=== PATIENT | female | born 1955 | race Caucasian/White ===

== ENCOUNTER 2023-08-31 07:25 | Outpatient (RCR) | payer MEDICARE, OTHER, SELFPAY ==
[2023-08-31 07:57] VITALS: BP 171/95; PULSE 80; TEMP 36.4; O2SAT 98
[2023-08-31] MEDS: 0.9 % SODIUM CHLORIDE 2,000 ML 1000 ML IV (08:05)
--- NOTE | 2023-08-31 08:41 | PC.NURSE ---
tolerating infusion without any issues. IV site clean dry free of reddness or edema
[2023-08-31 09:00] LABS: Bilirubin Urine NEGATIVE (NEGATIVE); Blood Urine MODERATE (NEGATIVE); Clarity Urine CLEAR (CLEAR); Color Urine BROWN (YELLOW); Glucose Urine UA NEGATIVE (NEGATIVE); Ketones Urine NEGATIVE (NEGATIVE); Leukocyte Esterase Urine MODERATE (NEGATIVE); Nitrite Urine NEGATIVE (NEGATIVE); Protein Urine TRACE mg/dL (NEG/TRACE); Specific Gravity Urine >=1.030 (1.005-1.025); Urobilinogen Urine 0.2 EU/dL (0.2-1.0)
[2023-08-31 09:04] LABS: Urine Microscopic Indicated YES
[2023-08-31 09:42] LABS: WBC Urine >100 #/HPF (NONE SEEN)
[2023-08-31 09:43] LABS: Bacteria Urine MODERATE #/HPF (NONE SEEN); Mucus Urine NONE SEEN (NONE SEEN); Squamous Epithelial Cell Urine FEW #/LPF (NONE/RARE)
[2023-08-31 10:01] LABS: Urine Culture Indicated YES
[2023-08-31 10:09] VITALS: BP 136/79; PULSE 50; TEMP 36.4; O2SAT 97
== END 2023-08-31 12:55 | disposition home or self-care (01) ==
LOC: LAB 07:25
PROVIDERS: PCP Family Medicine; Visit Provider Family Medicine
DX: K22.0 Achalasia of cardia (principal); E86.0 Dehydration; R82.998 Other abnormal findings in urine
CPT/HCPCS: 81001; 87086; 96360; 96361

== ENCOUNTER 2023-09-09 08:00 | Outpatient (OUT) | payer MEDICARE, OTHER, SELFPAY ==
--- OUTSIDE RECORDS SUMMARY | 2023-09-09 08:14 | XMS_ITS | CCD ---
Author Organization [facility] Care Team Providers Care Bonding Machine Tender Name Role Phone YA, DR VERO Vasquez Primary Care Unavailable BREANNE, DR KEYSHAWN Vasquez Consulting Unavailjavi QUINONES, DR DILIP Davis Attending Unavailable JONI, DR DILIP Davis Admitting Unavailable AYAKA, DR CHEN Childress Consulting Unavailable CARLOS, DR BARB Saucedo Consulting Unavailable JONI, DR DILIP Davis Consulting Unavailable KANNAN, DR NORRIS Consulting Unavailable VIDAL, SANDY Consulting Unavailable GEMBUS, NAIMA Consulting Unavailable YA, DR VERO Vasquez Consulting Unavailable YA, DR VERO Vasquez Primary Care Unavailable YA, DR VERO Vasquez Admitting Unavailable YA, DR VERO Vasquez Attending Unavailable YA, DR VERO Vasquez Admitting Unavailable YA, DR VERO Vasquez Attending Unavailable YA, DR VERO Vasquez Consulting Unavailable MD Vero Pandya Primary Care Provider Self, Referral Referring Provider Unavailable DO Dallas Singletary II Attending Provider Asaad, Imad Unavailable MD Vero Pandya Primary Care Provider Self, Referral Referring Provider Unavailable DO Dallas Singletary II Attending Provider MD Vero Pandya Primary Care Provider Self, Referral Referring Provider Unavailable DO Dallas Singletary II Attending Provider [phone]( [phone] Asaad, Imad Admitting Unavailable Vero Pandya Primary Care Unavailable Asaad, Imad Attending Unavailable Self, Referral Referring Unavailable Vero Pandya Primary Care Unavailable Cherise Jenkins Admitting Unavail able Cherise Jenkins Attending Unavail able Medications Completed/Discontinued Medications Medication Drug Class(es) Dates Sig (Normalized) Sig (Original) amitriptyline hydrochloride 10 mg oral tablet (3 sources) Tricyclic Antidepressant Start: 10-16-2020 End: 10-18-2020 take 10 mg by mouth once daily at bedtime Amitriptyline Discontinued 10 MG PO Daily at bedtime October 16, 2020 12:00am October 18, 2020 12:56pm esomeprazole 20 mg delayed release oral capsule (6 sources) Proton Pump Inhibitor Start: 10-18-2020 End: 09-05-2022 take 1 capsule by mouth once daily Esomeprazole Magnesium (Nexium) 20 mg Capsule,Delayed Release(Dr/Ec) Discontinued 20 MG PO Daily October 18, 2020 12:00am September 05, 2022 11:07am pt only takes when needed Start: 10-16-2020 End: 10-18-2020 take 40 mg by mouth once daily Esomeprazole Magnesium Discontinued 40 MG PO Daily October 16, 2020 12:00am October 18, 2020 12:56pm 24 hr metoprolol succinate 25 mg extended release oral tablet (3 sources) beta-Adrenergic Tracie Start: 10-16-2020 End: 10-18-2020 take 25 mg by mouth twice daily Metoprolol Succinate Discontinued 25 MG PO Twice daily October 16, 2020 12:00am October 18, 2020 12:56pm pantoprazole 40 mg delayed release oral tablet (8 sources) Proton Pump Inhibitor Start: 07-15-2023 End: 07-16-2023 take 40 mg by mouth twice daily Pantoprazole Discontinued 40 MG PO Twice daily 180 July 15, 2023 9:35pm July 16, 2023 2:16pm Start: 09-05-2022 End: 07-15-2023 take 40 mg by mouth once daily Pantoprazole Discontinu ed 40 MG PO Daily September 05, 2022 12:00am July 15, 2023 4:30pm Start: 03-18-2022 take 1 tablet by mookie th twice daily pantoprazole 40mg pantoprazole 40mg, 1 Tablet two times daily # 0, 03/18/2022, No Refill. 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; Translations: [ASHD LAC DU FLAMBEAU CA W/O ANGINA PECTORIS] Onset: 02-28-2022 Chronic Deficiency and other anemia (2 sources) Anemia due to chronic blood loss; Translations: [Iron deficiency anemia secondary to blood loss (chronic)] Chronic Deficiency and other anemia (10 sources) Iron deficiency anemia, unspecified; Translations: [Iron deficiency anemia, unspecified] Onset: 10-16-2021 Episodic Deficiency and other anemia (7 sources) Iron deficiency anemia; Translations: [Iron deficiency anemia, unspecified] 10-18-2020 Episodic Disorders of lipid metabolism (3 sources) Mixed hyperlipidemia; Translations: [Hyperlipidemia] Onset: 05-19-2016 Chronic Esophageal disorders (6 sources) Achalasia of cardia; Translations: [Achalasia of esophagus] Onset: 03-24-2013 Episodic Essential hypertension (3 sources) Essential (primary) hypertension; Translations: [Essential hypertension] Onset: 02-28-2022 Chronic Genitourinary symptoms and ill-defined conditions (7 sources) Frequency of micturition; Translations: [Finding of frequency of urination] Onset: 03-24-2013 Episodic Nausea and vomiting (4 sources) Nausea with vomiting, unspecified; Translations: [NAUSEA WITH VOMITING UNSPECIFIED] Onset: 02-17-2022 Episodic Other and unspecified benign neoplasm (1 source) Polyp of stomach and duodenum; Translations: [POLYP OF STOMACH AND DUODENUM] Onset: 02-28-2022 Episodic Other circulatory disease (2 sources) Elevated blood-pressure reading without diagnosis of hypertension; Translations: [Elevated blood-pressure reading, without diagnosis of hypertension] Episodic Other nutritional; endocrine; and metabolic disorders (1 source) Obesity, unspecified; Translations: [OBESITY UNSPECIFIED] Onset: 02-28-2022 Chronic Other nutritional; endocrine; and metabolic disorders (2 sources) Simple obesity ; Translations: [Other obesity due to excess calories] Onset: 05-19-2016 Chronic Other nutritional; endocrine; and metabolic disorders (2 sources) Obesity; Translations: [Obesity, unspecified] Onset: 04-21-2014 Chronic Other nutritional; endocrine; and metabolic disorders (2 sources) Obese class I; Translations: [Body mass index (BMI) 31.0-31.9, adult] Chronic Other nutritional; endocrine; and metabolic disorders (2 sources) Body mass index 30+ - obesity; Translations: [Body mass index (BMI) 30.0-30.9, adult] Chronic Other nutritional; endocrine; and metabolic disorders (1 source) Body mass index (BMI) 29.0-29.9, adult; Translations: [BODY MASS INDEX BMI 29.0-29.9 ADULT] Onset: 02-28-2022 Episodic Residual codes; unclassified (1 source) Acquired absence of other specified parts of digestive tract; Translations: [ACQ ABSENCE OTH PART DIGESTV TRACT] Onset: 02-28-2022 Episodic Screening and history of mental health and substance abuse codes (1 source) Personal history of nicotine dependence; Translations: [PERSONAL HISTORY OF NICOTINE DEPEND] Onset: 02-28-2022 Episodic Unclassified (1 source) GASTR-ESOPH RFLX DS ESPHGTS W/O BLD; Translations: [GASTR-ESOPH RFLX DS ESPHGTS W/O BLD] Onset: 02-28-2022 Unclassified (1 source) CONTACT W/AND (SUSP) EXPOS COVID-19; Translations: [CONTACT W/AND (SUSP) EXPOS COVID-19] Onset: 02-28-2022 Urinary tract infections (7 sources) Urinary tract infection, site not specified; Translations: [Urinary tract infectious disease] Onset: 02-27-2022 Episodic Past or Other Problems Problem Classification Problem Date Documented Date Episodic/Chronic Abdominal pain (2 sources) Epigastric pain; Translations: [Epigastric pain] Onset: 7 Episodic Deficiency and other anemia (2 sources) Anemia; Translations: [Anemia, unspecified] Onset: 5 Episodic Fluid and electrolyte disorders (2 sources) Dehydration; Translations: [Dehydration] Onset: 5 Episodic Malaise and fatigue (2 sources) Fatigue; Translations: [Other fatigue] Onset: 8 Episodic Other gastrointestinal disorders (2 sources) Pharyngeal dysphagia; Translations: [Dysphagia, pharyngoesophageal phase] Onset: 7 Episodic Other upper respiratory infections (2 sources) Acute sinusitis; Translations: [Acute sinusitis, unspecified] Onset: 5 Episodic Pancreatic disorders (not diabetes) (2 sources) Acute pancreatitis; Translations: [Acute pancreatitis without necrosis or infection, unspecified] Onset: 3 Episodic Results Test Name Value Interpretation Reference Range Facility 1,25 Dihydroxy Vit D Calcitr olon 08-17-2023 1,25 Dihydroxy Vit D Calcitrol 25.8 pg/mL Normal 24.8-81.5 [facility] Comment on above: Result Comment: Perf ormed at: BN - [facility] [address] [id number] Wood Repatcher: Lucas Hwang MD, Phone: [phone] Performed By: #### F ER, FE and TIBC, PTH, [id number], CBC, [id number], CMP #### [address] #### EPO, METH, [id number] #### [facility] , Alanine aminotransferase [En zymatic activity/volume] in Serum or PlasmaOrdered By: Dallas Singletary on 08-17-2023 ALT [Catalytic activity/Vol] 8 U/L Normal 7-52 [facility] Comment on above: Performed By: #### F ER, FE and TIBC, PTH, [id number], CBC, [id number], CMP #### [address] #### EPO, METH, [id number] #### [facility] , Albumin [Mass/volume] in Ser um or Plasma by Bromocresol green (BCG) dye binding methoOrdered By: Dallas Singletary on 08-17-2023 Albumin BCG dye [Mass/Vol] 4.2 g/dL 3.5-5.7 [facility] Alkaline phosphatase [Enzyma tic activity/volume] in Serum or PlasmaOrdered By: Dallas Singletary on 08-17-2023 ALP [Catalytic activity/Vol] 72 U/L Normal 34-104 [facility] Comment on above: Performed By: #### F ER, FE and TIBC, PTH, [id number], CBC, [id number], CMP #### [address] #### EPO, METH, [id number] #### [facility] , Aspartate aminotransferase [ Enzymatic activity/volume] in Serum or PlasmaOrdered By: Dallas Singletary on 08-17-2023 AST [Catalytic activity/Vol] 11 U/L Low 13-39 [facility] Comment on above: Performed By: #### F ER, FE and TIBC, PTH, [id number], CBC, [id number], CMP #### [address] #### EPO, METH, [id number] #### [facility] , Automated basophil %Ordered By: Dallas Singletary on 08-17-2023 Basophils/100 WBC (Bld) 1.1 % Normal . [facility] Comment on above: Performed By: #### F ER, FE and TIBC, PTH, [id number], CBC, [id number], CMP #### [address] #### EPO, METH, [id number] #### [facility] , Automated basophil countOrde red By: Dallas Singletary on 08-17-2023 Basophils (Bld) [#/Vol] 0.1 10*3/uL Normal 0.0-0.2 [facility] Comment on above: Result Comment: PERF ORMED BY: [place] [address] PATHOLOGIST SET UP TECHNICIAN ROSETTE BARTON M.D. Performed By: #### F ER, FE and TIBC, PTH, [id number], CBC, [id number], CMP #### [address] #### EPO, METH, [id number] #### [facility] , Automated blood monocyte cou ntOrdered By: Dallas Singletary on 08-17-2023 Monocytes (Bld) [#/Vol] 0.4 10*3/uL Normal 0.0-0.8 [facility] Comment on above: Performed By: #### F ER, FE and TIBC, PTH, [id number], CBC, [id number], CMP #### [address] #### EPO, METH, [id number] #### [facility] , Automated eosinophil %Ordere d By: Dallas Singletary on 08-17-2023 Eosinophils/100 WBC (Bld) 3.5 % Normal . [facility] Comment on above: Performed By: #### F ER, FE and TIBC, PTH, [id number], CBC, [id number], CMP #### [address] #### EPO, METH, [id number] #### [facility] , Automated eosinophil countOr dered By: Dallas Singletary on 08-17-2023 Eosinophils (Bld) [#/Vol] 0.2 10*3/uL Normal 0.0-0.45 [facility] Comment on above: Performed By: #### F ER, FE and TIBC, PTH, [id number], CBC, [id number], CMP #### [address] #### EPO, METH, [id number] #### [facility] , Automated monocyte %Ordered By: Dallas Singletary on 08-17-2023 Monocytes/100 WBC (Bld) 7.2 % Normal . [facility] Comment on above: Performed By: #### F ER, FE and TIBC, PTH, [id number], CBC, [id number], CMP #### [place] [address] [place] #### EPO, METH, [id number] #### [facility] , Automated neutrophil %Ordere d By: Dallas Singletary on 08-17-2023 Neutrophils/100 WBC (Bld) 66.5 % Normal . [facility] Comment on above: Performed By: #### F ER, FE and TIBC, PTH, [id number], CBC, [id number], CMP #### [facility] [address] [place] [address] #### EPO, METH, [id number] #### [facility] , Bilirubin.total [Mass/volume ] in Serum or PlasmaOrdered By: Dallas Singletary on 08-17-2023 Bilirubin [Mass/Vol] 0.6 mg/dL Normal 0.3-1.0 [facility] Comment on above: Performed By: #### F ER, FE and TIBC, PTH, [id number], CBC, [id number], CMP #### [address] #### EPO, METH, [id number] #### [facility] , Calcium [Mass/volume] in Ser um or PlasmaOrdered By: Dallas Singletary on 08-17-2023 Calcium [Mass/Vol] 10.4 mg/dL High 8.6-10.3 [facility] Comment on above: Performed By: #### F ER, FE and TIBC, PTH, [id number], CBC, [id number], CMP #### [address] #### EPO, METH, [id number] #### [facility] , Carbon dioxide, total [Moles /volume] in Serum or PlasmaOrdered By: Dallas Singletary on 08-17-2023 CO2 [Moles/Vol] 30.4 mmol/L Normal 21.0-31.0 [facility] Comment on above: Performed By: #### F ER, FE and TIBC, PTH, [id number], CBC, [id number], CMP #### [place] [address] [place] #### EPO, METH, [id number] #### [facility] , Chloride [Moles/volume] in S davonte or PlasmaOrdered By: Dallas Singletary on 08-17-2023 Chloride [Moles/Vol] 106 mmol/L Normal 98-107 [facility] Comment on above: Performed By: #### F ER, FE and TIBC, PTH, [id number], CBC, [id number], CMP #### [facility] [address] [place] [address] #### EPO, METH, [id number] #### [facility] , Complete Blood Count Auto Di ffon 08-17-2023 Mean Corpuscular HGB Conc 32.6 g/dL Normal 32.0-35.0 [facility] Comment on above: Performed By: #### F ER, FE and TIBC, PTH, [id number], CBC, [id number], CMP #### [facility] [address] [place] [address] #### EPO, METH, [id number] #### [facility] , NRBC% 0.1 /100{WBC} Normal 0-0.5 [facility] Comment on above: Performed By: #### F ER, FE and TIBC, PTH, [id number], CBC, [id number], CMP #### [facility] [address] [place] [address] #### EPO, METH, [id number] #### [facility] , Comprehensive Metabolic Pane hitesh 08-17-2023 Albumin [Mass/Vol] 4.2 g/dL Normal 3.5-5.7 [facility] Comment on above: Performed By: #### F ER, FE and TIBC, PTH, [id number], CBC, [id number], CMP #### [facility] [address] [place] [address] [place] #### EPO, METH, [id number] #### [facility] , Creatinine Clr Calc Pharmacy 83.20 Normal [facility] Comment on above: Performed By: #### F ER, FE and TIBC, PTH, [id number], CBC, [id number], CMP #### [address] #### EPO, METH, [id number] #### [facility] , GFR/1.73 sq M.predicted MDRD (S/P/Bld) [Vol rate/Area] mL/min/{1.73_m2} Normal [facility] Comment on above: Performed By: #### F ER, FE and TIBC, PTH, [id number], CBC, [id number], CMP #### [address] #### EPO, METH, [id number] #### [facility] , Creatinine [Mass/volume] in Serum or PlasmaOrdered By: Dallas Singletary on 08-17-2023 Creatinine [Mass/Vol] 0.74 mg/dL Normal 0.60-1.20 [facility] Comment on above: Performed By: #### F ER, FE and TIBC, PTH, [id number], CBC, [id number], CMP #### [place] [address] [place] #### EPO, METH, [id number] #### [facility] , Erythrocyte distribution wid th [Ratio] by Automated countOrdered By: Dallas Singletary on 08-17-2023 Erythrocyte distribution width (RBC) [Ratio] 14.8 % Normal 11.9-15.3 [facility] Comment on above: Performed By: #### F ER, FE and TIBC, PTH, [id number], CBC, [id number], CMP #### [place] [address] [place] #### EPO, METH, [id number] #### [facility] , Erythrocytes [#/volume] in B lood by Automated countOrdered By: Dallas Singletary on 08-17-2023 RBC (Bld) [#/Vol] 5.23 10*6/uL High 3.60-5.00 [facility] Comment on above: Performed By: #### F ER, FE and TIBC, PTH, [id number], CBC, [id number], CMP #### [address] #### EPO, METH, [id number] #### [facility] , Erythropoetin (EPO), Serumon 08-17-2023 Erythropoetin (EPO), Serum 10.6 m[iU]/mL Normal 2.6-18.5 [facility] Comment on above: Result Comment: [employer] DxI 800 Immunoassay System Values obtained with different assay methods or kits cannot be used interchangeably. Results cannot be interpreted as absolute evidence of the presence or absence of malignant disease. Performed at: [address] [id number] Wood Repatcher: Gavin Butler PhD, Phone: [phone] PERFORMED BY: [place] [address] PATHOLOGIST SET UP TECHNICIAN ROSETTE BARTON M.D. Performed By: #### F ER, FE and TIBC, PTH, [id number], CBC, [id number], CMP #### [address] #### EPO, METH, [id number] #### [facility] , Ferritin [Mass/volume] in Se rum or PlasmaOrdered By: Dallas Singletary on 08-17-2023 Ferritin [Mass/Vol] 12.6 ng/mL Normal 11.0-306.8 [facility] Comment on above: Performed By: #### F ER, FE and TIBC, PTH, [id number], CBC, [id number], CMP #### [address] #### EPO, METH, [id number] #### [facility] , Folate [Mass/volume] in Seru m or PlasmaOrdered By: Dallas Singletary on 08-17-2023 Folate [Mass/Vol] 10.0 ng/mL >5.9 [facility] Comment on above: Folate reference ran ge: >5.9 ng/mlThe WHO technical consultation on folate and vitamin [id number] has determined that folate concentrations lessthan 4 ng/ml are considered deficient. Glucose [Mass/volume] in Ser um or PlasmaOrdered By: Dallas Singletary on 08-17-2023 Glucose [Mass/Vol] 95 mg/dL Normal 70-100 [facility] Comment on above: ADA recommended refe rence rangeRandom Glucose Reference Range is dependent on time and content of last meal. Glucose of more than 200 mg/dL in a nonstressed, ambulatory subject supports the diagnosis of Diabetes Mellitus. Result Comment: [place] om Glucose Reference Range is dependent on time and content of last meal. Glucose of more than 200 mg/dL in a nonstressed, ambulatory subject supports the diagnosis of Diabetes Mellitus. ADA recommended reference range Performed By: #### F ER, FE and TIBC, PTH, [id number], CBC, [id number], CMP #### [facility] [address] [place] [address] #### EPO, METH, [id number] #### [facility] , Hematocrit [Volume Fraction] of Blood by Automated countOrdered By: Dallas Singletary on 08-17-2023 Hematocrit (Bld) [Volume fraction] 42.3 % Normal 34.0-46.4 [facility] Comment on above: Performed By: #### F ER, FE and TIBC, PTH, [id number], CBC, [id number], CMP #### [facility] [address] [place] [address] [place] #### EPO, METH, [id number] #### [facility] , Hemoglobin [Mass/volume] in BloodOrdered By: Dallas Singletary on 08-17-2023 Hemoglobin (Bld) [Mass/Vol] 13.8 g/dL Normal 11.8-15.4 [facility] Comment on above: Performed By: #### F ER, FE and TIBC, PTH, [id number], CBC, [id number], CMP #### [facility] [address] [place] [address] [place] #### EPO, METH, [id number] #### [facility] , Iron [Mass/volume] in Serum or PlasmaOrdered By: Dallas Singletary on 08-17-2023 Iron [Mass/Vol] 48 ug/dL Low 50-212 [facility] Comment on above: Performed By: #### F ER, FE and TIBC, PTH, [id number], CBC, [id number], CMP #### [facility] [address] [place] [address] [place] #### EPO, METH, [id number] #### [facility] , Iron and TIBC Profileon 07-29 0 % Iron Saturation 14.4 % Low 20-50 [facility] Comment on above: Performed By: #### F ER, FE and TIBC, PTH, [id number], CBC, [id number], CMP #### [facility] [address] [place] [address] [place] #### EPO, METH, [id number] #### [facility] , Total Iron Binding Capacity 333 ug/dL Normal 255-450 [facility] Comment on above: Performed By: #### F ER, FE and TIBC, PTH, [id number], CBC, [id number], CMP #### [facility] [address] [place] [address] [place] #### EPO, METH, [id number] #### [facility] , Iron binding capacity [Mass/ volume] in Serum or PlasmaOrdered By: Dallas Singletary on 08-17-2023 Iron binding capacity [Mass/Vol] 333 ug/dL 255-450 [facility] Iron saturation [Mass Fracti on] in Serum or PlasmaOrdered By: Dallas Singletary on 08-17-2023 Iron saturation [Mass fraction] 14.4 % 20-50 [facility] Leukocytes [#/volume] correc rhonda for nucleated erythrocytes in Blood by Automated counOrdered By: Dallas Singletary on 08-17-2023 WBC corrected for nucl RBC Auto (Bld) [#/Vol] 4.9 10*3/uL 3.8-11.6 [facility] Leukocytes [#/volume] in Blo od by Automated countOrdered By: Dallas Singletary on 08-17-2023 WBC (Bld) [#/Vol] 4.9 10*3/uL Normal 3.8-11.6 [facility] Comment on above: Performed By: #### F ER, FE and TIBC, PTH, [id number], CBC, [id number], CMP #### [address] #### EPO, METH, [id number] #### [facility] , Lymphocytes [#/volume] in Bl ood by Automated countOrdered By: Dallas Singletary on 08-17-2023 Lymphocytes (Bld) [#/Vol] 1.1 10*3/uL Normal 1.00-4.8 [facility] Comment on above: Performed By: #### F ER, FE and TIBC, PTH, [id number], CBC, [id number], CMP #### [place] [address] [place] #### EPO, METH, [id number] #### [facility] , Lymphocytes/100 leukocytes i n Blood by Automated countOrdered By: Dallas Singletary on 08-17-2023 Lymphocytes/100 WBC (Bld) 21.7 % Normal . [facility] Comment on above: Performed By: #### F ER, FE and TIBC, PTH, [id number], CBC, [id number], CMP #### [place] [address] [place] #### EPO, METH, [id number] #### [facility] , MCH [Entitic mass] by Automa rhonda countOrdered By: Dallas Singletary on 08-17-2023 MCH (RBC) [Entitic mass] 26.4 pg Normal 24.7-34.3 [facility] Comment on above: Performed By: #### F ER, FE and TIBC, PTH, [id number], CBC, [id number], CMP #### [address] #### EPO, METH, [id number] #### [facility] , MCHC Auto (RBC) [Mass/Vol]Or dered By: Dallas Singletary on 08-17-2023 MCHC (RBC) [Mass/Vol] 32.6 g/dL 32.0-35.0 [facility] MCV [Entitic volume] by Auto mated countOrdered By: Dallas Singletary on 08-17-2023 MCV (RBC) [Entitic vol] 81.0 fL Normal 80-100 [facility] Comment on above: Performed By: #### F ER, FE and TIBC, PTH, [id number], CBC, [id number], CMP #### [address] #### EPO, METH, [id number] #### [facility] , Methylmalonic Acidon 024 Methylmalonic Acid 187 Normal 0-378 [facility] Comment on above: Result Comment: This test was developed and its performance characteristics determined by [facility]. It has not been cleared or approved by the Food and Drug Administration. Performed at: [address] [id number] Wood Repatcher: Lucas Hwang MD, Phone: [phone] Performed By: #### F ER, FE and TIBC, PTH, [id number], CBC, [id number], CMP #### [place] [address] [place] #### EPO, METH, [id number] #### [facility] , Neutrophils [#/volume] in Bl ood by Automated countOrdered By: Dallas Singletary on 08-17-2023 Neutrophils (Bld) [#/Vol] 3.2 10*3/uL Normal 1.8-7.7 [facility] Comment on above: Performed By: #### F ER, FE and TIBC, PTH, [id number], CBC, [id number], CMP #### [address] #### EPO, METH, [id number] #### [facility] , No Panel InformationOrdered By: Dallas Singletary on 08-17-2023 Estimated GFR (CKD-EPI) > 60.0 mL/Min [facility] Creatinine Clearance (Chem 83.20 [facility] Nucleated erythrocytes [Pres ence] in Blood by Automated countOrdered By: Dallas Singletary on 08-17-2023 Nucleated RBC Auto Ql (Bld) 0.1 /100{WBC} 0-0.5 [facility] Parathyrin.intact [Mass/volu me] in Serum or PlasmaOrdered By: Dallas Singletary on 08-17-2023 Parathyrin.intact [Mass/Vol] 52.3 pg/mL [facility] Parathyroid Hormone Intacton 08-17-2023 Parathyroid Hormone Intact 52.3 pg/mL Normal [facility] Comment on above: Result Comment: PERF ORMED BY: [place] [address] PATHOLOGIST SET UP TECHNICIAN ROSETTE BARTON M.D. Performed By: #### F ER, FE and TIBC, PTH, [id number], CBC, [id number], CMP #### [address] #### EPO, METH, [id number] #### [facility] , Platelet mean volume [Entiti c volume] in Blood by Automated countOrdered By: Dallas Singletary on 08-17-2023 Platelet mean volume (Bld) [Entitic vol] 9.5 fL Normal 6.3-10.7 [facility] Comment on above: Performed By: #### F ER, FE and TIBC, PTH, [id number], CBC, [id number], CMP #### [facility] [address] [place] [address] #### EPO, METH, [id number] #### [facility] , Platelets [#/volume] in Bloo d by Automated countOrdered By: Dallas Singletary on 08-17-2023 Platelets (Bld) [#/Vol] 222 10*3/uL Normal 150-450 [facility] Comment on above: Performed By: #### F ER, FE and TIBC, PTH, [id number], CBC, [id number], CMP #### [address] #### EPO, METH, [id number] #### [facility] , Potassium [Moles/volume] in Serum or PlasmaOrdered By: Dallas Singletary on 08-17-2023 Potassium [Moles/Vol] 4.4 mmol/L Normal 3.5-5.1 [facility] Comment on above: Performed By: #### F ER, FE and TIBC, PTH, [id number], CBC, [id number], CMP #### [facility] [address] [place] [address] #### EPO, METH, [id number] #### [facility] , Protein [Mass/volume] in Ser um or PlasmaOrdered By: Dallas Singletary on 08-17-2023 Protein [Mass/Vol] 7.1 g/dL Normal 6.4-8.9 [facility] Comment on above: Performed By: #### F ER, FE and TIBC, PTH, [id number], CBC, [id number], CMP #### [facility] [address] [place] [address] [place] #### EPO, METH, [id number] #### [facility] , Serum globulin measurement b y calculation (mass/volume)Ordered By: Dallas Singletary on 08-17-2023 Globulin (S) [Mass/Vol] 2.9 g/dL Normal [facility] Comment on above: Performed By: #### F ER, FE and TIBC, PTH, [id number], CBC, [id number], CMP #### [facility] [address] [place] [address] #### EPO, METH, [id number] #### [facility] , Serum or plasma albumin/glob ulin mass ratioOrdered By: Dallas Singletary on 08-17-2023 Albumin/Globulin [Mass ratio] 1.4 {ratio} Normal [facility] Comment on above: Performed By: #### F ER, FE and TIBC, PTH, [id number], CBC, [id number], CMP #### [facility] [address] [place] [address] #### EPO, METH, [id number] #### [facility] , Serum or plasma anion gap de terminationOrdered By: Dallas Singletary on 08-17-2023 Anion gap [Moles/Vol] 6.0 mmol/L Normal 6.0-15.0 [facility] Comment on above: Performed By: #### F ER, FE and TIBC, PTH, [id number], CBC, [id number], CMP #### [address] #### EPO, METH, [id number] #### [facility] , Serum or plasma calcitriol m easurement (mass/volume)Ordered By: Dallas Singletary on 08-17-2023 1,25-dihydroxyvitamin D3 [Mass/Vol] 25.8 pg/mL 24.8-81.5 [facility] Comment on above: Performed at: [address] [id number] Director: Lucas Hwang MD, Phone: [phone] Serum or plasma erythropoiet in (EPO) measurement (units/volume)Ordered By: Dallas Singletary on 08-17-2023 Erythropoietin (EPO) Qn 10.6 mIU/mL 2.6-18.5 [facility] Comment on above: Nate FonJax el DxI 800 Immunoassay SystemValues obtained with different assay methods or kits cannotbe used interchangeably. Results cannot be interpreted asabsolute evidence of the presence or absence of malignantdisease.Performed at: [address] [id number] Director: Gavin Butler PhD, Phone: [phone] Sodium [Moles/volume] in Ser um or PlasmaOrdered By: Dallas Singletary on 08-17-2023 Sodium [Moles/Vol] 138 mmol/L Normal 136-145 [facility] Comment on above: Performed By: #### F ER, FE and TIBC, PTH, [id number], CBC, [id number], CMP #### [address] #### EPO, METH, [id number] #### [facility] , Transferrin [Mass/volume] in Serum or PlasmaOrdered By: Dallas Singletary on 08-17-2023 Transferrin [Mass/Vol] 238 mg/dL Normal 203-362 [facility] Comment on above: Performed By: #### F ER, FE and TIBC, PTH, [id number], CBC, [id number], CMP #### [address] #### EPO, METH, [id number] #### [facility] , Urea nitrogen [Mass/volume] in Serum or PlasmaOrdered By: Dallas Singletary on 08-17-2023 Urea nitrogen [Mass/Vol] 14 mg/dL Normal 7-25 [facility] Comment on above: Performed By: #### F ER, FE and TIBC, PTH, [id number], CBC, [id number], CMP #### [facility] [address] [place] [address] #### EPO, METH, [id number] #### [facility] , Vit. B12/Folate Profileon Folate 10.0 ng/mL Normal >5.9 [facility] Comment on above: Result Comment: Arlen te reference range: >5.9 ng/ml The WHO technical consultation on folate and vitamin b12 deficiencies has determined that folate concentrations less than 4 ng/ml are considered deficient. Performed By: #### F ER, FE and TIBC, PTH, [id number], CBC, [id number], CMP #### [address] #### EPO, METH, [id number] #### [facility] , Vitamin B12 ser/plasOrdered By: Dallas Singletary on 08-17-2023 Cobalamin (Vitamin B12) [Mass/Vol] 211 pg/mL Normal 180-914 [facility] Comment on above: Performed By: #### F ER, FE and TIBC, PTH, [id number], CBC, [id number], CMP #### [address] #### EPO, METH, [id number] #### [facility] , Vitamin D 25 Hydroxy Totalon 08-17-2023 Vitamin D 25 Hydroxy Total 24.7 ng/mL Low 30-100 [facility] Comment on above: Result Comment: DAVID MIN D STATUS 25(OH)VITAMIN D RANGE (ng/mL) Deficient <20 Insufficient 20 to <30 Sufficient 30 to 100 Reference: Barb MF,Rosalino NC, Carmina OLIVARES, et al. Evaluation,treatment, and prevention of vitamin D deficiency; an Endocrine Society clinical practice guideline. JCEM. 2010; 96(7):1911-30. PERFORMED BY: [place] [address] PATHOLOGIST SET UP TECHNICIAN ROSETTE BARTON M.D. Performed By: #### F ER, FE and TIBC, PTH, [id number], CBC, [id number], CMP #### [place] [address] [place] #### EPO, METH, [id number] #### [facility] , Vitamin D+Metabolites [Mass/ volume] in Serum or PlasmaOrdered By: Dallas Singletary on 08-17-2023 Vitamin D+Metabolites [Mass/Vol] 24.7 ng/mL 30-100 [facility] Comment on above: VITAMIN D STATUS 25( OH)VITAMIN D RANGE (ng/mL) Deficient <20 Insufficient 20 to <30Sufficient 30 to 100Reference: Barb MF,Rosalino SY, Carmina OLIVARES, et al. Evaluation,treatment, and prevention of vitamin D deficiency; an Endocrine Society clinical practice guideline. JCEM. 2010; 96(7):1911-30. Hitesh 02-13-2023 L Specimen: [id number] Received: 02/13/23 Status: ALBERTO Villela Num: [id number] Spec Type: Surgical Subm Dr: Onur Rodríguez MD Tissues: A Colon Biopsy (ASC POLYP) B Colon Biopsy (TRANSV POLYP) C Colon Biopsy (SIGMOID POLYP) Procedures: HE/6, Gross/Micro L4/3 Age/ Patient Sex Location Account Attending Physician TikiKaveh felton Christina 67/F [id number] Onur Rodríguez MD SPEC NUM: [id number] RECD: 02/13/23 STATUS: ALBERTO VILLELA NUM: [id number] SURI: 02/13/23 DR: Onur Rodríguez MD ENTERED: 02/13/[address]: WOODROW TYPE: Surgical DEPT: S ORDERED: HE/6, Gross/Micro L4/3 ORDERED: HE/6, Gross/Micro L4/3 Pathological Diagnosis A. Ascending colon polyp biopsy: - Small tubular adenomatous polyp B. Transverse colon polyp biopsy: - Small tubular adenomatous polyp C. Sigmoid polyps biopsy: - Tubular adenomatous polyp in 1 smaller fragment - Serrated hyperplasia polyp in one other larger fragment Clinical Information ABBEY Gross Description A. The specimen is received in formalin labeled with the patient's name designated ascending polyp and consists of a 0.3 x 0.2 x 0.2 cm sandhu-pink, polypoid, soft tissue fragment which is submitted in toto in a single cassette labeled A1. B. The specimen is received in formalin labeled with the patient's name designated transverse polyp and consists of a 0.3 x 0.2 x 0.1 cm sandhu-pink, polypoid, soft tissue fragment which is submitted in toto in a single cassette labeled B1. Specimen: [id number] Received: 02/13/23 Status: ALBERTO Villela Num: [id number] Spec Type: Surgical Subm Dr: Onur Rodríguez MD Tissues: A Colon Biopsy (ASC POLYP) B Colon Biopsy (TRANSV POLYP) C Colon Biopsy (SIGMOID POLYP) Procedures: , Gross/Micro L4/3 Patient: Tikijose franciscoKaveh [id number] (Continued) Specimen: [id number] Received: 02/13/23 (Continued) Gross Description (Continued) Signed (signature on file) John Zelaya MD 02/16/23 1613 Specimen: [id number] Received: 02/13/23 Status: NILESRoyal Villela Num: [id number] Spec Type: Surgical Subm Dr: Onur Rodríguez MD Tissues: A Colon Biopsy (ASC POLYP) B Colon Biopsy (TRANSV POLYP) C Colon Biopsy (SIGMOID POLYP) Procedures: Gross/Micro L4/3 Patient: Kaveh Theodore [id number] (Continued) Specimen: [id number] Received: 02/13/23 (Continued) Gross Description (Continued) C. The specimen is received in formalin labeled with the patient's name designated sigmoid polyps and consists of two sandhu-pink, polypoid, soft tissue fragments aggregating to 0.6 x 0.4 x 0.2 cm which are submitted in toto in a single cassette labeled C1. Microscopic Description Microscopic examinations are performed CPT Codes 50806n5 Specimen: [id number] Received: 02/13/23 Status: ALBERTO Piña: [id number] Spec Type: Surgical Subm Dr: Onur Rodríguez MD Tissues: A Colon Biopsy (ASC POLYP) B Colon Biopsy (TRANSV POLYP) C Colon Biopsy (SIGMOID POLYP) Procedures: HE/6, Gross/Micro L4/3 Patient: Tikijose franciscoKaveh [id number] (Continued) Signed (signature on file) Perry-Bam Zelaya MD 02/16/23 1613 Normal [facility] Alanine aminotransferase [En zymatic activity/volume] in Serum or PlasmaOrdered By: Cherise Jenkins on 12-02-2022 ALT [Catalytic activity/Vol] 10 U/L Normal 7-52 [facility] Comment on above: Performed By: #### F ER, FE and TIBC, PTH, [id number], CBC, [id number], CMP #### [facility] [address] #### EPO, METH, [id number] #### [facility] , Albumin [Mass/volume] in Ser um or Plasma by Bromocresol green (BCG) dye binding methoOrdered By: Cherise Jenkins on 12-02-2022 Albumin BCG dye [Mass/Vol] 4.5 g/dL 3.5-5.7 [facility] Alkaline phosphatase [Enzyma tic activity/volume] in Serum or PlasmaOrdered By: Cherise Wrightromel on 12-02-2022 ALP [Catalytic activity/Vol] 88 U/L Normal 34-104 [facility] Comment on above: Performed By: #### F ER, FE and TIBC, PTH, [id number], CBC, [id number], CMP #### [address] #### EPO, METH, [id number] #### [facility] , Aspartate aminotransferase [ Enzymatic activity/volume] in Serum or PlasmaOrdered By: Cherise Wrightromel on 12-02-2022 AST [Catalytic activity/Vol] 12 U/L Low 13-39 [facility] Comment on above: Performed By: #### F ER, FE and TIBC, PTH, [id number], CBC, [id number], CMP #### [address] #### EPO, METH, [id number] #### [facility] , Automated basophil %Ordered By: Cherise Wrightromel on 12-02-2022 Basophils/100 WBC (Bld) 1.1 % Normal . [facility] Comment on above: Performed By: #### F ER, FE and TIBC, PTH, [id number], CBC, [id number], CMP #### [place] [address] [place] #### EPO, METH, [id number] #### [facility] , Automated basophil countOrde red By: Cherise Wrightromel on 12-02-2022 Basophils (Bld) [#/Vol] 0.1 10*3/uL Normal 0.0-0.2 [facility] Comment on above: Result Comment: PERF ORMED BY: [place] [address] PATHOLOGIST SET UP TECHNICIAN ROSETTE BARTON M.D. Performed By: #### F ER, FE and TIBC, PTH, [id number], CBC, [id number], CMP #### [place] [address] [place] #### EPO, METH, [id number] #### [facility] , Automated blood monocyte cou ntOrdered By: Cherise Jenkins on 12-02-2022 Monocytes (Bld) [#/Vol] 0.4 10*3/uL Normal 0.0-0.8 [facility] Comment on above: Performed By: #### F ER, FE and TIBC, PTH, [id number], CBC, [id number], CMP #### [address] #### EPO, METH, [id number] #### [facility] , Automated eosinophil %Ordere d By: Cherise Wrightromel on 12-02-2022 Eosinophils/100 WBC (Bld) 3.0 % Normal . [facility] Comment on above: Performed By: #### F ER, FE and TIBC, PTH, [id number], CBC, [id number], CMP #### [address] #### EPO, METH, [id number] #### [facility] , Automated eosinophil countOr dered By: Cherise Jenkins on 12-02-2022 Eosinophils (Bld) [#/Vol] 0.2 10*3/uL Normal 0.0-0.45 [facility] Comment on above: Performed By: #### F ER, FE and TIBC, PTH, [id number], CBC, [id number], CMP #### [place] [address] [place] #### EPO, METH, [id number] #### [facility] , Automated monocyte %Ordered By: Cherise Jenkins on 12-02-2022 Monocytes/100 WBC (Bld) 7.8 % Normal . [facility] Comment on above: Performed By: #### F ER, FE and TIBC, PTH, [id number], CBC, [id number], CMP #### [place] [address] [place] #### EPO, METH, [id number] #### [facility] , Automated neutrophil %Ordere d By: Cherise Jenkins on 12-02-2022 Neutrophils/100 WBC (Bld) 69.2 % Normal . [facility] Comment on above: Performed By: #### F ER, FE and TIBC, PTH, [id number], CBC, [id number], CMP #### [address] #### EPO, METH, [id number] #### [facility] , Bilirubin.total [Mass/volume ] in Serum or PlasmaOrdered By: Cherise Jenkins on 12-02-2022 Bilirubin [Mass/Vol] 0.8 mg/dL Normal 0.3-1.0 [facility] Comment on above: Performed By: #### F ER, FE and TIBC, PTH, [id number], CBC, [id number], CMP #### [address] #### EPO, METH, [id number] #### [facility] , Calcium [Mass/volume] in Ser um or PlasmaOrdered By: Cherise Jenkins on 12-02-2022 Calcium [Mass/Vol] 11.2 mg/dL High 8.6-10.3 [facility] Comment on above: Performed By: #### F ER, FE and TIBC, PTH, [id number], CBC, [id number], CMP #### [place] [address] [place] #### EPO, METH, [id number] #### [facility] , Carbon dioxide, total [Moles /volume] in Serum or PlasmaOrdered By: Cherise Jenkins on 12-02-2022 CO2 [Moles/Vol] 31.2 mmol/L High 21.0-31.0 [facility] Comment on above: Performed By: #### F ER, FE and TIBC, PTH, [id number], CBC, [id number], CMP #### [place] [address] [place] #### EPO, METH, [id number] #### [facility] , Chloride [Moles/volume] in S davonte or PlasmaOrdered By: Cherise Alice on 12-02-2022 Chloride [Moles/Vol] 104 mmol/L Normal 98-107 [facility] Comment on above: Performed By: #### F ER, FE and TIBC, PTH, [id number], CBC, [id number], CMP #### [address] #### EPO, METH, [id number] #### [facility] , Complete Blood Count Auto Di ffon 12-02-2022 Mean Corpuscular HGB Conc 32.9 g/dL Normal 32.0-35.0 [facility] Comment on above: Performed By: #### F ER, FE and TIBC, PTH, [id number], CBC, [id number], CMP #### [place] [address] [place] #### EPO, METH, [id number] #### [facility] , NRBC% 0.2 /100{WBC} Normal 0-0.5 [facility] Comment on above: Performed By: #### F ER, FE and TIBC, PTH, [id number], CBC, [id number], CMP #### [place] [address] [place] #### EPO, METH, [id number] #### [facility] , Comprehensive Metabolic Pane hitesh 12-02-2022 Albumin [Mass/Vol] 4.5 g/dL Normal 3.5-5.7 [facility] Comment on above: Performed By: #### F ER, FE and TIBC, PTH, [id number], CBC, [id number], CMP #### [place] [address] [place] #### EPO, METH, [id number] #### [facility] , Creatinine Clr Calc Pharmacy 83.08 Normal [facility] Comment on above: Performed By: #### F ER, FE and TIBC, PTH, [id number], CBC, [id number], CMP #### [place] [address] [place] #### EPO, METH, [id number] #### [facility] , GFR/1.73 sq M.predicted MDRD (S/P/Bld) [Vol rate/Area] mL/min/{1.73_m2} Normal [facility] Comment on above: Performed By: #### F ER, FE and TIBC, PTH, [id number], CBC, [id number], CMP #### [place] [address] [place] #### EPO, METH, [id number] #### [facility] , Creatinine [Mass/volume] in Serum or PlasmaOrdered By: Cherise Jenkins on 12-02-2022 Creatinine [Mass/Vol] 0.66 mg/dL Normal 0.60-1.20 [facility] Comment on above: Performed By: #### F ER, FE and TIBC, PTH, [id number], CBC, [id number], CMP #### [place] [address] [place] #### EPO, METH, [id number] #### [facility] , Erythrocyte distribution wid th [Ratio] by Automated countOrdered By: Cherise Jenkins on 12-02-2022 Erythrocyte distribution width (RBC) [Ratio] 15.4 % High 11.9-15.3 [facility] Comment on above: Performed By: #### F ER, FE and TIBC, PTH, [id number], CBC, [id number], CMP #### [place] [address] [place] #### EPO, METH, [id number] #### [facility] , Erythrocytes [#/volume] in B lood by Automated countOrdered By: Cherise Jenkins on 12-02-2022 RBC (Bld) [#/Vol] 5.52 10*6/uL High 3.60-5.00 [facility] Comment on above: Performed By: #### F ER, FE and TIBC, PTH, [id number], CBC, [id number], CMP #### [address] #### EPO, METH, [id number] #### [facility] , Ferritin [Mass/volume] in Se rum or PlasmaOrdered By: Cherise Jenkins on 12-02-2022 Ferritin [Mass/Vol] 211.7 ng/mL Normal 11.0-306.8 [facility] Comment on above: Performed By: #### F ER, FE and TIBC, PTH, [id number], CBC, [id number], CMP #### [address] #### EPO, METH, [id number] #### [facility] , Glucose [Mass/volume] in Ser um or PlasmaOrdered By: Cherise Jenkins on 12-02-2022 Glucose [Mass/Vol] 100 mg/dL Normal 70-100 [facility] Comment on above: ADA recommended refe rence rangeRandom Glucose Reference Range is dependent on time and content of last meal. Glucose of more than 200 mg/dL in a nonstressed, ambulatory subject supports the diagnosis of Diabetes Mellitus. Result Comment: [place] om Glucose Reference Range is dependent on time and content of last meal. Glucose of more than 200 mg/dL in a nonstressed, ambulatory subject supports the diagnosis of Diabetes Mellitus. ADA recommended reference range Performed By: #### F ER, FE and TIBC, PTH, [id number], CBC, [id number], CMP #### [facility] [address] [place] [address] [place] #### EPO, METH, [id number] #### [facility] , Hematocrit [Volume Fraction] of Blood by Automated countOrdered By: Cherise Wrightromel on 12-02-2022 Hematocrit (Bld) [Volume fraction] 47.7 % High 34.0-46.4 [facility] Comment on above: Performed By: #### F ER, FE and TIBC, PTH, [id number], CBC, [id number], CMP #### [address] #### EPO, METH, [id number] #### [facility] , Hemoglobin [Mass/volume] in BloodOrdered By: Cherise Wrightromel on 12-02-2022 Hemoglobin (Bld) [Mass/Vol] 15.7 g/dL High 11.8-15.4 [facility] Comment on above: Performed By: #### F ER, FE and TIBC, PTH, [id number], CBC, [id number], CMP #### [address] #### EPO, METH, [id number] #### [facility] , Iron [Mass/volume] in Serum or PlasmaOrdered By: Cherise Wrightromel on 12-02-2022 Iron [Mass/Vol] 74 ug/dL Normal 50-212 [facility] Comment on above: Performed By: #### F ER, FE and TIBC, PTH, [id number], CBC, [id number], CMP #### [place] [address] [place] #### EPO, METH, [id number] #### [facility] , Iron and TIBC Profileon % Iron Saturation 26.5 % Normal 20-50 [facility] Comment on above: Performed By: #### F ER, FE and TIBC, PTH, [id number], CBC, [id number], CMP #### [facility] [address] [place] [address] [place] #### EPO, METH, [id number] #### [facility] , Total Iron Binding Capacity 279 ug/dL Normal 255-450 [facility] Comment on above: Performed By: #### F ER, FE and TIBC, PTH, [id number], CBC, [id number], CMP #### [facility] [address] [place] [address] #### EPO, METH, [id number] #### [facility] , Iron binding capacity [Mass/ volume] in Serum or PlasmaOrdered By: Cherise Jenkins on 12-02-2022 Iron binding capacity [Mass/Vol] 279 ug/dL 255-450 [facility] Iron saturation [Mass Fracti on] in Serum or PlasmaOrdered By: Cherise Jenkins on 12-02-2022 Iron saturation [Mass fraction] 26.5 % 20-50 [facility] Leukocytes [#/volume] correc rhonda for nucleated erythrocytes in Blood by Automated counOrdered By: Cherise Jenkins on 12-02-2022 WBC corrected for nucl RBC Auto (Bld) [#/Vol] 5.7 10*3/uL 3.8-11.6 [facility] Leukocytes [#/volume] in Blo od by Automated countOrdered By: Cherise Jenkins on 12-02-2022 WBC (Bld) [#/Vol] 5.7 10*3/uL Normal 3.8-11.6 [facility] Comment on above: Performed By: #### F ER, FE and TIBC, PTH, [id number], CBC, [id number], CMP #### [facility] [address] [place] [address] [place] #### EPO, METH, [id number] #### [facility] , Lymphocytes [#/volume] in Bl ood by Automated countOrdered By: Cherise Jenkins on 12-02-2022 Lymphocytes (Bld) [#/Vol] 1.1 10*3/uL Normal 1.00-4.8 [facility] Comment on above: Performed By: #### F ER, FE and TIBC, PTH, [id number], CBC, [id number], CMP #### [facility] [address] [place] [address] #### EPO, METH, [id number] #### [facility] , Lymphocytes/100 leukocytes i n Blood by Automated countOrdered By: Cherise Jenkins on 12-02-2022 Lymphocytes/100 WBC (Bld) 18.9 % Normal . [facility] Comment on above: Performed By: #### F ER, FE and TIBC, PTH, [id number], CBC, [id number], CMP #### [address] #### EPO, METH, [id number] #### [facility] , MCH [Entitic mass] by Automa rhonda countOrdered By: Cherise Jenkins on 12-02-2022 MCH (RBC) [Entitic mass] 28.5 pg Normal 24.7-34.3 [facility] Comment on above: Performed By: #### F ER, FE and TIBC, PTH, [id number], CBC, [id number], CMP #### [address] #### EPO, METH, [id number] #### [facility] , MCHC Auto (RBC) [Mass/Vol]Or dered By: Cherise Jenkins on 12-02-2022 MCHC (RBC) [Mass/Vol] 32.9 g/dL 32.0-35.0 [facility] MCV [Entitic volume] by Auto mated countOrdered By: Cherise Jenkins on 12-02-2022 MCV (RBC) [Entitic vol] 86.5 fL Normal 80-100 [facility] Comment on above: Performed By: #### F ER, FE and TIBC, PTH, [id number], CBC, [id number], CMP #### [place] [address] [place] #### EPO, METH, [id number] #### [facility] , Neutrophils [#/volume] in Bl ood by Automated countOrdered By: Cherise Martinezoj on 12-02-2022 Neutrophils (Bld) [#/Vol] 3.9 10*3/uL Normal 1.8-7.7 [facility] Comment on above: Performed By: #### F ER, FE and TIBC, PTH, [id number], CBC, [id number], CMP #### [facility] [address] [place] [address] [place] #### EPO, METH, [id number] #### [facility] , No Panel InformationOrdered By: Cherise Jenkins on 12-02-2022 Estimated GFR (CKD-EPI) > 60.0 mL/Min [facility] Creatinine Clearance (Chem 83.08 [facility] Nucleated erythrocytes [Pres ence] in Blood by Automated countOrdered By: Cherise Wrightromel on 12-02-2022 Nucleated RBC Auto Ql (Bld) 0.2 /100{WBC} 0-0.5 [facility] Platelet mean volume [Entiti c volume] in Blood by Automated countOrdered By: Cherise Wrightromel on 12-02-2022 Platelet mean volume (Bld) [Entitic vol] 9.5 fL Normal 6.3-10.7 [facility] Comment on above: Performed By: #### F ER, FE and TIBC, PTH, [id number], CBC, [id number], CMP #### [facility] [address] [place] [address] [place] #### EPO, METH, [id number] #### [facility] , Platelets [#/volume] in Bloo d by Automated countOrdered By: Cherise Alice on 12-02-2022 Platelets (Bld) [#/Vol] 214 10*3/uL Normal 150-450 [facility] Comment on above: Performed By: #### F ER, FE and TIBC, PTH, [id number], CBC, [id number], CMP #### [facility] [address] [place] [address] [place] #### EPO, METH, [id number] #### [facility] , Potassium [Moles/volume] in Serum or PlasmaOrdered By: Cherise Alice on 12-02-2022 Potassium [Moles/Vol] 5.0 mmol/L Normal 3.5-5.1 [facility] Comment on above: Performed By: #### F ER, FE and TIBC, PTH, [id number], CBC, [id number], CMP #### [address] #### EPO, METH, [id number] #### [facility] , Protein [Mass/volume] in Ser um or PlasmaOrdered By: Cherise Alice on 12-02-2022 Protein [Mass/Vol] 7.4 g/dL Normal 6.4-8.9 [facility] Comment on above: Performed By: #### F ER, FE and TIBC, PTH, [id number], CBC, [id number], CMP #### [address] #### EPO, METH, [id number] #### [facility] , Serum globulin measurement b y calculation (mass/volume)Ordered By: Cherise Alice on 12-02-2022 Globulin (S) [Mass/Vol] 2.9 g/dL Normal [facility] Comment on above: Performed By: #### F ER, FE and TIBC, PTH, [id number], CBC, [id number], CMP #### [address] #### EPO, METH, [id number] #### [facility] , Serum or plasma albumin/glob ulin mass ratioOrdered By: Cherise Alice on 12-02-2022 Albumin/Globulin [Mass ratio] 1.6 {ratio} [facility] Comment on above: Performed By: #### F ER, FE and TIBC, PTH, [id number], CBC, [id number], CMP #### [address] #### EPO, METH, [id number] #### [facility] , Serum or plasma anion gap de terminationOrdered By: Cherise Jenkins on 12-02-2022 Anion gap [Moles/Vol] 9.8 mmol/L Normal 6.0-15.0 [facility] Comment on above: Performed By: #### F ER, FE and TIBC, PTH, [id number], CBC, [id number], CMP #### [address] #### EPO, METH, [id number] #### [facility] , Sodium [Moles/volume] in Ser um or PlasmaOrdered By: Cherise Jenkins on 12-02-2022 Sodium [Moles/Vol] 140 mmol/L Normal 136-145 [facility] Comment on above: Performed By: #### F ER, FE and TIBC, PTH, [id number], CBC, [id number], CMP #### [address] #### EPO, METH, [id number] #### [facility] , Transferrin [Mass/volume] in Serum or PlasmaOrdered By: Cherise Jenkins on 12-02-2022 Transferrin [Mass/Vol] 199 mg/dL Low 203-362 [facility] Comment on above: Performed By: #### F ER, FE and TIBC, PTH, [id number], CBC, [id number], CMP #### [place] [address] [place] #### EPO, METH, [id number] #### [facility] , Urea nitrogen [Mass/volume] in Serum or PlasmaOrdered By: Cherise Jenkins on 12-02-2022 Urea nitrogen [Mass/Vol] 14 mg/dL Normal 7-25 [facility] Comment on above: Performed By: #### F ER, FE and TIBC, PTH, [id number], CBC, [id number], CMP #### [facility] [address] #### EPO, METH, [id number] #### [facility] , Vitamin B12 ser/plasOrdered By: Cherise Jenkins on 12-02-2022 Cobalamin (Vitamin B12) [Mass/Vol] 284 pg/mL Normal 180-914 [facility] Comment on above: Result Comment: PERF ORMED BY: [place] [address] PATHOLOGIST SET UP TECHNICIAN ROSETTE BARTON M.D. Performed By: #### F ER, FE and TIBC, PTH, [id number], CBC, [id number], CMP #### [facility] [address] [place] [address] #### EPO, METH, [id number] #### [facility] , Albumin [Mass/volume] in Ser um or PlasmaOrdered By: aDllas Singletary on 03-04-2022 Albumin [Mass/Vol] 3.6 g/dL 3.2-5.5 [facility] Basophils Auto (Bld) [#/Vol] Ordered By: Dallas Singletary on 03-04-2022 Basophils (Bld) [#/Vol] 0.1 10*3/uL 0.0-0.2 [facility] Basophils/100 WBC Auto (Bld) Ordered By: Dallas Singletary on 03-04-2022 Basophils/100 WBC (Bld) 1.1 % . [facility] biopsyOrdered By: Dallas Singletary on 03-04-2022 Transferrin [Mass/Vol] 194 mg/dL 180-380 [facility] Creatinine and Glomerular fi ltration rate.predicted panel (S/P/Bld)Ordered By: Dallas Singletary on 03-04-2022 Creatinine [Mass/Vol] 0.72 mg/dL 0.44-1.03 [facility] Eosinophils Auto (Bld) [#/Vo l]Ordered By: Dallas Singletary on 03-04-2022 Eosinophils (Bld) [#/Vol] 0.2 10*3/uL 0.0-0.45 [facility] Eosinophils/100 WBC Auto (Bl d)Ordered By: Dallas Singletary on 03-04-2022 Eosinophils/100 WBC (Bld) 4.2 % . [facility] Erythrocyte distribution wid th Auto (RBC) [Ratio]Ordered By: Dallas Singletary on 03-04-2022 Erythrocyte distribution width (RBC) [Ratio] 13.9 % 11.9-15.3 [facility] Estimated glomerular filtrat ion rate (GFR) non- AmericanOrdered By: Dallas Singletary on 03-04-2022 GFR/1.73 sq M.predicted among non-blacks MDRD (S/P/Bld) [Vol rate/Area] > 60 mL/Min [facility] Ferritin [Mass/volume] in Se rum or PlasmaOrdered By: Dallas Singletary on 03-04-2022 Ferritin [Mass/Vol] 90.9 ng/mL 11-306.8 [facility] Folate [Mass/volume] in Seru m or PlasmaOrdered By: Dallas Singletary on 03-04-2022 Folate [Mass/Vol] 7.6 ng/mL >5.9 [facility] Comment on above: Folate reference ran ge: >5.9 ng/mlThe WHO technical consultation on folate and vitamin [id number] has determined that folate concentrations lessthan 4 ng/ml are considered deficient. Globulin Calc (S) [Mass/Vol] Ordered By: Dallas Singletary on 03-04-2022 Globulin (S) [Mass/Vol] 3.1 g/dL [facility] Hematocrit Auto (Bld) [Volum e fraction]Ordered By: Dallas Singletary on 03-04-2022 Hematocrit (Bld) [Volume fraction] 44.0 % 34.0-46.4 [facility] Hemoglobin [Mass/volume] in BloodOrdered By: Dallas Singletary on 03-04-2022 Hemoglobin (Bld) [Mass/Vol] 14.1 g/dL 11.8-15.4 [facility] Iron [Mass/volume] in Serum or PlasmaOrdered By: Dallas Singletary on 03-04-2022 Iron [Mass/Vol] 40 ug/dL 40-150 [facility] Iron binding capacity [Mass/ volume] in Serum or PlasmaOrdered By: Dallas Singletary on 03-04-2022 Iron binding capacity [Mass/Vol] 272 ug/dL 255-450 [facility] Iron saturation [Mass Fracti on] in Serum or PlasmaOrdered By: Dallas Singletary on 03-04-2022 Iron saturation [Mass fraction] 14.0 % 20-50 [facility] - Chemistry and C hemistry - challengeOrdered By: Dallas Singletary on 03-04-2022 Cobalamin (Vitamin B12) [Mass/Vol] 214 pg/mL 180-914 [facility] Leukocytes [#/volume] correc rhonda for nucleated erythrocytes in Blood by Automated counOrdered By: Dallas Singletary on 03-04-2022 WBC corrected for nucl RBC Auto (Bld) [#/Vol] 4.6 10*3/uL 3.8-11.6 [facility] Lymphocytes Auto (Bld) [#/Vo l]Ordered By: Dallas Singletary on 03-04-2022 Lymphocytes (Bld) [#/Vol] 1.2 10*3/uL 1.00-4.8 [facility] Lymphocytes/100 WBC Auto (Bl d)Ordered By: Dallas Singletary on 03-04-2022 Lymphocytes/100 WBC (Bld) 25.1 % . [facility] MCH Auto (RBC) [Entitic mass ]Ordered By: Dallas Singletary on 03-04-2022 MCH (RBC) [Entitic mass] 28.1 pg 24.7-34.3 [facility] MCHC Auto (RBC) [Mass/Vol]Or dered By: Dallas Singletary on 03-04-2022 MCHC (RBC) [Mass/Vol] 32.1 g/dL 32.0-35.0 [facility] MCV Auto (RBC) [Entitic vol] Ordered By: Dallas Singletary on 03-04-2022 MCV (RBC) [Entitic vol] 87.4 fL 80-100 [facility] Monocytes Auto (Bld) [#/Vol] Ordered By: Dallas Singletary on 03-04-2022 Monocytes (Bld) [#/Vol] 0.3 10*3/uL 0.0-0.8 [facility] Monocytes/100 WBC Auto (Bld) Ordered By: Dallas Singletary on 03-04-2022 Monocytes/100 WBC (Bld) 7.5 % . [facility] Neutrophils Auto (Bld) [#/Vo l]Ordered By: Dallas Singletary on 03-04-2022 Neutrophils (Bld) [#/Vol] 2.9 10*3/uL 1.8-7.7 [facility] Neutrophils/100 WBC Auto (Bl d)Ordered By: Dallas Singletary on 03-04-2022 Neutrophils/100 WBC (Bld) 62.1 % . [facility] No Panel InformationOrdered By: Dallas Singletary on 03-04-2022 Estimated GFR () > 60 mL/Min [facility] Comment on above: GFR estimated refere nce range: According to KDOQI guidelines, <60 ml/min/1.73m2 is sufficient to diagnose a patient with chronic kidney disease. Pharmacy Creatinine Clearance (Chem 85.53 [facility] Nucleated erythrocytes [Pres ence] in Blood by Automated countOrdered By: Dallas Singletary on 03-04-2022 Nucleated RBC Auto Ql (Bld) 0.1 /100{WBC} 0-0.5 [facility] Platelet mean volume Auto (B ld) [Entitic vol]Ordered By: Dallas Singletary on 03-04-2022 Platelet mean volume (Bld) [Entitic vol] 9.1 fL 6.3-10.7 [facility] Platelets Auto (Bld) [#/Vol] Ordered By: Dallas Singletary on 03-04-2022 Platelets (Bld) [#/Vol] 257 10*3/uL 150-450 [facility] Protein [Mass/volume] in Ser um or PlasmaOrdered By: Dallas Singletary on 03-04-2022 Protein [Mass/Vol] 6.7 g/dL 6.1-7.9 [facility] RBC Auto (Bld) [#/Vol]Ordere d By: Dallas Singletary on 03-04-2022 RBC (Bld) [#/Vol] 5.03 10*6/uL 3.60-5.00 [facility] Serum or plasma alanine joseph otransferase measurement without P-5'-P (enzymatic activiOrdered By: Dallas Singletary on 03-04-2022 ALT No additional P-5'-P [Catalytic activity/Vol] 13 U/L 10-60 [facility] Serum or plasma albumin/glob ulin mass ratioOrdered By: Dallas Singletary on 03-04-2022 Albumin/Globulin [Mass ratio] 1.2 {ratio} [facility] Serum or plasma alkaline domitila sphatase measurement (enzymatic activity/volume)Ordered By: Dallas Singletary on 03-04-2022 ALP [Catalytic activity/Vol] 77 U/L 32-92 [facility] Serum or plasma anion gap de terminationOrdered By: Dallas Singletary on 03-04-2022 Anion gap [Moles/Vol] 11.6 mmol/L 6.0-15.0 [facility] Serum or plasma aspartate am inotransferase measurement (enzymatic activity/volume)Ordered By: Dallas Singletary on 03-04-2022 AST [Catalytic activity/Vol] 15 U/L 10-42 [facility] Serum or plasma calcium gerson urement (mass/volume)Ordered By: Dallas Singletary on 03-04-2022 Calcium [Mass/Vol] 9.9 mg/dL 8.2-10.2 [facility] Serum or plasma chloride cori surement (moles/volume)Ordered By: Dallas Singletary on 03-04-2022 Chloride [Moles/Vol] 104 mmol/L 95-114 [facility] Serum or plasma glucose gerson urement (mass/volume)Ordered By: Dallas Singletary on 03-04-2022 Glucose [Mass/Vol] 100 mg/dL 70-100 [facility] Comment on above: ADA recommended refe rence rangeRandom Glucose Reference Range is dependent on time and content of last meal. Glucose of more than 200 mg/dL in a nonstressed, ambulatory subject supports the diagnosis of Diabetes Mellitus. Serum or plasma potassium me asurement (moles/volume)Ordered By: Dallas Singletary on 03-04-2022 Potassium [Moles/Vol] 5.0 mmol/L 3.5-5.1 [facility] Serum or plasma sodium measu rement (moles/volume)Ordered By: Dallas Singletary on 03-04-2022 Sodium [Moles/Vol] 139 mmol/L 136-146 [facility] Serum or plasma total biliru bin measurement (mass/volume)Ordered By: Dallas Singletary on 03-04-2022 Bilirubin [Mass/Vol] 0.4 mg/dL 0.3-1.2 [facility] Serum or plasma total carbon dioxide measurement (moles/volume)Ordered By: Dallas Singletary on 03-04-2022 CO2 [Moles/Vol] 28.4 mmol/L 22.0-30.0 [facility] Serum or plasma urea nitroge n measurement (mass/volume)Ordered By: Dallas Singletary on 03-04-2022 Urea nitrogen [Mass/Vol] 15 mg/dL 12-20 [facility] WBC Auto (Bld) [#/Vol]Ordere d By: Dallas Singletary on 03-04-2022 WBC (Bld) [#/Vol] 4.6 10*3/uL 3.8-11.6 [facility] CULTURE URINEon 02-27-2022 CULTURE URINE Culture Observations: NO GROWTH. Normal [facility] Comment on above: Performed By: #### U RCX #### [facility] [address] [address] [address] Kamala Zelaya CULTURE URINEon 02-19-2022 CULTURE URINE Isolate 1 Escherichia coli 15,000 cfu/mL of ORGANISM 1 Escherichia coli ANTIBIOTIC M.I.C RX STATUS Ampicillin >=32 R F Ampicillin/Sulbactam >=32 R F Piperacillin/Tazobac valdez <=4 S F Cefazolin 16 I F Ceftazidime <=1 S F Ceftriaxone <=1 S F Ertapenem <=0.5 S F Imipenem <=0.25 S F Amikacin <=2 S F Gentamicin <=1 S F Tobramycin <=1 S F Ciprofloxacin <=0.25 S F Levofloxacin <=0.12 S F Nitrofurantoin <=16 S F Trimethoprim/Sulfame thoxazole >=320 R F Normal [facility] Comment on above: Performed By: #### U AMIC #### [facility] [address] [place] [address] Dr. Kamala Zelaya CBC AUTO DIFFon 02-18-2022 BASO # 0.0 103/ul Normal 0.0-0.1 [facility] Comment on above: Performed By: #### C BC #### [facility] [address] [place] [address] Dr. Kamala Zelaya Basophils/100 WBC (Bld) 0.3 % Normal 0.2-2.0 [facility] Comment on above: Performed By: #### C BC #### [facility] [address] [place] [address] Dr. Kamala Zelaya EO # 0.0 103/ul Normal 0.0-0.7 [facility] Comment on above: Performed By: #### C BC #### [facility] [address] [place] [address] Dr. Kamala Zelaya Eosinophils/100 WBC (Bld) 0.1 % Critically low 0.9-7.0 [facility] Comment on above: Performed By: #### C BC #### [facility] [address] [place] [address] Dr. Kamala Zelaya Erythrocyte distribution width (RBC) [Ratio] 13.2 % Normal 11.0-15.0 [facility] Comment on above: Performed By: #### C BC #### [facility] [address] [place] [address] Dr. Kamala Zelaya Hematocrit (Bld) [Volume fraction] 42.5 % Normal 36.0-48.0 [facility] Comment on above: Performed By: #### C BC #### [facility] [address] [place] [address] Dr. Kamala Zelaya Hemoglobin (Bld) [Mass/Vol] 13.7 g/dL Normal 12.0-16.0 [facility] Comment on above: Performed By: #### C BC #### [facility] [address] [address] [address] Kamala Zelaya IG # 0.02 10e3/ul Normal 0.00-0.03 [facility] Comment on above: Performed By: #### C BC #### [facility] [address] [address] [address] Kamala eZlaya IG % 0.3 % Normal 0.0-0.5 [facility] Comment on above: Performed By: #### C BC #### [facility] [address] [place] [address] Dr. Kamala Zelaya LYMPH # 0.9 103/ul Critically low 1.2-3.8 [facility] Comment on above: Performed By: #### C BC #### [facility] [address] [place] [address] Dr. Kamala Zelaya Lymphocytes/100 WBC (Bld) 12.7 % Critically low 20.5-60.0 [facility] Comment on above: Performed By: #### C BC #### [facility] [address] [place] [address] Dr. Kamala Zelaya MANUAL DIFF REQ NO Normal [facility] Comment on above: Performed By: #### C BC #### [facility] [address] [place] [address] Dr. Kamala Zelaya MCH (RBC) [Entitic mass] 28.4 pg Normal 26.7-34.0 [facility] Comment on above: Performed By: #### C BC #### [facility] [address] [place] [address] Dr. Kamala Zelaya MCHC (RBC) [Mass/Vol] 32.2 g/dL Normal 29.9-35.2 [facility] Comment on above: Performed By: #### C BC #### [facility] [address] [place] [address] Dr. Kamala Zelaya MCV (RBC) [Entitic vol] 88.0 fL Normal 81.0-99.0 [facility] Comment on above: Performed By: #### C BC #### [facility] [address] [place] [address] Dr. Kamala Zelaya MONO # 0.6 103/ul Normal 0.3-0.8 [facility] Comment on above: Performed By: #### C BC #### [facility] [address] [place] [address] Dr. Kamala Zelaya Monocytes/100 WBC (Bld) 8.6 % Normal 1.7-12.0 [facility] Comment on above: Performed By: #### C BC #### [facility] [address] [place] [address] Dr. Kamala Zelaya NEUT # 5.7 103/ul Normal 1.4-6.5 [facility] Comment on above: Performed By: #### C BC #### [facility] [address] [place] [address] Dr. Kamala Zelaya Neutrophils/100 WBC (Bld) 78.0 % Critically high 43.0-75.0 [facility] Comment on above: Performed By: #### C BC #### [facility] [address] [place] [address] Dr. Kamala Zelaya Platelet mean volume (Bld) [Entitic vol] 11.1 fL Normal 9.5-13.5 [facility] Comment on above: Performed By: #### C BC #### [facility] [address] [place] [address] Dr. Kamala Zelaya PLT 195 103/ul Normal 150-[address] [facility] Comment on above: Performed By: #### C BC #### [facility] [address] [place] [address] Dr. Kamala Zelaya RBC 4.83 106/ul Normal 4.20-5.[address] [facility] Comment on above: Performed By: #### C BC #### [facility] [address] [place] [address] Dr. Kamala Zelaya WBC 7.3 103/ul Normal 4.0-11.0 [facility] Comment on above: Performed By: #### C BC #### [facility] [address] [place] [address] Dr. Kamala Zelaya PROF 14(COMP METB)on 022 Albumin [Mass/Vol] 3.1 g/dL Critically low 3.4-5.0 [facility] Comment on above: Performed By: #### C BC #### [facility] [address] [place] [address] Dr. Kamala Zelaya Albumin/Globulin [Mass ratio] 0.9 {ratio} Normal [facility] Comment on above: Performed By: #### C BC #### [facility] [address] [place] [address] Dr. Kamala Zelaya ALP [Catalytic activity/Vol] 65 U/L Normal 46-116 [facility] Comment on above: Performed By: #### C BC #### [facility] [address] [place] [address] Dr. Kamala Zelaya ALT [Catalytic activity/Vol] 11 U/L Critically low 14-59 [facility] Comment on above: Performed By: #### C BC #### [facility] [address] [place] [address] Dr. Kamala Zelaya Anion gap [Moles/Vol] 11.1 mmol/L Normal [facility] Comment on above: Performed By: #### C BC #### [facility] [address] [place] [address] Dr. Kamala Zelaya AST [Catalytic activity/Vol] 17 U/L Normal 15-37 [facility] Comment on above: Performed By: #### C BC #### [facility] [address] [place] [address] Dr. Kamala Zelaya Bilirubin [Mass/Vol] 0.5 mg/dL Normal 0.2-1.0 [facility] Comment on above: Performed By: #### C BC #### [facility] [address] [place] [address] Dr. Kamala Zelaya Calcium [Mass/Vol] 9.1 mg/dL Normal 8.5-10.1 [facility] Comment on above: Performed By: #### C BC #### [facility] [address] [place] [address] Dr. Kamala Zelaya Chloride [Moles/Vol] 106 mmol/L Normal 98-107 [facility] Comment on above: Performed By: #### C BC #### [facility] [address] [address] [address] Kamala Zelaya CO2 [Moles/Vol] 26.3 mmol/L Normal 21.0-32.0 [facility] Comment on above: Performed By: #### C BC #### [facility] [address] [address] [address] Kamala Zelaya Creatinine [Mass/Vol] 0.60 mg/dL Normal 0.55-1.02 [facility] Comment on above: Performed By: #### C BC #### [facility] [address] [place] [address] Dr. Kamala Zelaya EGFR-AF VENEZUELAN >60 Normal >=60 [facility] Comment on above: Performed By: #### C BC #### [facility] [address] [address] [address] Kamala Zelaya EGFR-NON AF VENEZUELAN >60 Normal >=60 [facility] Comment on above: Performed By: #### C BC #### [facility] [address] [address] [address] Kamala Zelaya Globulin (S) [Mass/Vol] 3.4 g/dL Normal [facility] Comment on above: Performed By: #### C BC #### [facility] [address] [address] [address] Kamala Zelaya Glucose [Mass/Vol] 108 mg/dL Critically high 74-106 [facility] Comment on above: Performed By: #### C BC #### [facility] [address] [address] [address] Kamala Zelaya Potassium [Moles/Vol] 3.4 mmol/L Critically low 3.5-5.1 [facility] Comment on above: Performed By: #### C BC #### [facility] [address] [address] [address] Kamala Zelaya Protein [Mass/Vol] 6.5 g/dL Normal 6.4-8.2 [facility] Comment on above: Performed By: #### C BC #### [facility] [address] [address] [address] Kamala Zelaya Sodium [Moles/Vol] 140 mmol/L Normal 136-145 [facility] Comment on above: Performed By: #### C BC #### [facility] [address] [address] [address] Kamala Zelaya Urea nitrogen [Mass/Vol] 16.0 mg/dL Normal 7.0-18.0 [facility] Comment on above: Performed By: #### C BC #### [facility] [address] [address] [address] Kamala Zelaya Urea nitrogen/Creatinine [Mass ratio] 26.7 mg/mg Normal [facility] Comment on above: Performed By: #### C BC #### [facility] [address] [place] [address] Dr. Kamala Zelaya XR SMALL BOWEL FOLLOW THOUGH on 02-18-2022 XR SMALL BOWEL FOLLOW THOUGH EXAMINATION: XR SMALL BOWEL FOLLOW THOUGH HISTORY: nausea and vomiting COMPARISON: No relevant comparison available. TECHNIQUE: Small bowel series was performed in the usual manner. No javascript ui developer abdominal radiograph was performed. Standard level fluoroscopic mode of operation utilized. FINDINGS: DUODENUM: Normal caliber and mucosal pattern. JEJUNUM: Normal motility. No obstruction or visible lesion. ILEUM: Normal motility. No obstruction or visible lesion. OTHER: Negative. IMPRESSION: 1. Contrast has passed through normal caliber small bowel into the colon by 2 hours. No obstruction or suspicious findings. Electronically authenticated by: BARB GONZALEZ Date: 2022-02-18 10:55 Normal [facility] CBC AUTO DIFFon 02-17-2022 BASO # 0.0 103/ul Normal 0.0-0.1 [facility] Comment on above: Performed By: #### C BC #### [facility] [address] [place] [address] Dr. Kamala Zelaya Basophils/100 WBC (Bld) 0.4 % Normal 0.2-2.0 [facility] Comment on above: Performed By: #### C BC #### [facility] [address] [address] [address] Kamala Zelaya EO # 0.0 103/ul Normal 0.0-0.7 [facility] Comment on above: Performed By: #### C BC #### [facility] [address] [place] [address] Dr. Kamala Zelaya Eosinophils/100 WBC (Bld) 0.3 % Critically low 0.9-7.0 [facility] Comment on above: Performed By: #### C BC #### [facility] [address] [place] [address] Dr. Kamala Zelaya Erythrocyte distribution width (RBC) [Ratio] 13.0 % Normal 11.0-15.0 [facility] Comment on above: Performed By: #### C BC #### [facility] [address] [place] [address] Dr. Kamala Zelaya Hematocrit (Bld) [Volume fraction] 53.3 % Critically high 36.0-48.0 [facility] Comment on above: Performed By: #### C BC #### [facility] [address] [place] [address] Dr. Kamala Zelaya Hemoglobin (Bld) [Mass/Vol] 17.4 g/dL Critically high 12.0-16.0 [facility] Comment on above: Performed By: #### C BC #### [facility] [address] [place] [address] Dr. Kamala Zelaya IG # 0.03 10e3/ul Normal 0.00-0.03 [facility] Comment on above: Performed By: #### C BC #### [facility] [address] [place] [address] Dr. Kamala Zelaya IG % 0.3 % Normal 0.0-0.[address] [facility] Comment on above: Performed By: #### C BC #### [facility] [address] [place] [address] Dr. Kamala Zelaya LYMPH # 0.7 103/ul Critically low 1.2-3.8 [facility] Comment on above: Performed By: #### C BC #### [facility] [address] [place] [address] Dr. Kamala Zelaya Lymphocytes/100 WBC (Bld) 5.8 % Critically low 20.5-60.0 [facility] Comment on above: Performed By: #### C BC #### [facility] [address] [place] [address] Dr. Kamala Zelaya MANUAL DIFF REQ NO Normal [facility] Comment on above: Performed By: #### C BC #### [facility] [address] [place] [address] Dr. Kamala Zelaya MCH (RBC) [Entitic mass] 27.9 pg Normal 26.7-34.0 [facility] Comment on above: Performed By: #### C BC #### [facility] [address] [place] [address] Dr. Kamala Zelaya MCHC (RBC) [Mass/Vol] 32.6 g/dL Normal 29.9-35.2 [facility] Comment on above: Performed By: #### C BC #### [facility] [address] [place] [address] Dr. Kamala Zelaya MCV (RBC) [Entitic vol] 85.4 fL Normal 81.0-99.0 [facility] Comment on above: Performed By: #### C BC #### [facility] [address] [place] [address] Dr. Kamala Zelaya MONO # 0.5 103/ul Normal 0.3-0.8 [facility] Comment on above: Performed By: #### C BC #### [facility] [address] [place] [address] Dr. Kamala Zelaya Monocytes/100 WBC (Bld) 4.0 % Normal 1.7-12.0 [facility] Comment on above: Performed By: #### C BC #### [facility] [address] [place] [address] Dr. Kamala Zelaya NEUT # 10.0 103/ul Critically high 1.4-6.5 [facility] Comment on above: Performed By: #### C BC #### [facility] [address] [place] [address] Dr. Kamala Zelaya Neutrophils/100 WBC (Bld) 89.2 % Critically high 43.0-75.0 [facility] Comment on above: Performed By: #### C BC #### [facility] [address] [place] [address] Dr. Kamala Zelaya Platelet mean volume (Bld) [Entitic vol] 11.8 fL Normal 9.5-13.5 [facility] Comment on above: Performed By: #### C BC #### [facility] [address] [place] [address] Dr. Kamala Zelaya PLT 278 103/ul Normal 150-450 [facility] Comment on above: Performed By: #### C BC #### [facility] [address] [place] [address] Dr. Kamala Zelaya RBC 6.24 106/ul Critically high 4.20-5.40 [facility] Comment on above: Performed By: #### C BC #### [facility] [address] [place] [address] Dr. Kamala Zelaya WBC 11.2 103/ul Critically high 4.0-11.0 [facility] Comment on above: Performed By: #### C BC #### [facility] [address] [place] [address] Dr. Kamala Zelaya CULTURE BLOODon 02-17-2022 Microscopic examination of blood, culture Culture Observations: NO GROWTH AT 5 DAYS. Normal [facility] Comment on above: Performed By: #### U AMIC #### [facility] [address] [place] [address] Dr. Kamala Zelaya Microscopic examination of blood, culture Culture Observations: NO GROWTH AT 5 DAYS. Normal [facility] Comment on above: Performed By: #### U AMIC #### [facility] [address] [place] [address] Dr. Kamala Zelaya [facility]29 SARS-CoV-2 (COVID-19) RNA VERENICE+probe Ql (Unsp spec) Not detected Normal NOT DETECTED [facility] Comment on above: Result Comment: When diagnostic testing is negative, the possibility of a false negative should be considered in the context of a patient's recent exposures and the presence of clinical signs and symptoms consistent with SARS-CoV-2. This test is not yet approved or cleared by the [place] FDA. When there are no FDA-approved or cleared tests available, and other criteria are met, FDA can make tests available under an emergency access mechanism called an Emergency Use Authorization (EUA). The EUA for this test is supported by the Esthetician Facialist of Health and Human Service's declaration that circumstances exist to justify the emergency use of in vitro diagnostics for the detection and/or diagnosis of the virus that causes COVID-19. This EUA will remain in effect for the duration of the COVID-19 declaration justifying emergency of IVDs, unless it is terminated or revoked by the FDA (after which the test may no longer be used). Performed By: #### [facility] #### [facility] [address] [place] [address] Dr. Kamala Zelaya ER URINE PROFILEon 2 Bilirubin Ql (U) Negative Normal NEGATIVE [facility] Comment on above: Performed By: #### Christina ADAME UMICRO #### [facility] [address] [place] [address] Dr. Kamala Zelaya Clarity (U) CLEAR Normal CLEAR [facility] Comment on above: Performed By: #### E DEEP UMICRO #### [facility] [address] [place] [address] Dr. Kamala Zelaya Color (U) LT. YELLOW Normal YELLOW [facility] Comment on above: Performed By: #### E RUR, UMICRO #### [facility] [address] [place] [address] Dr. Kamala Zelaya ERUAHD A micrscopic examination will be performed if indicated. Normal [facility] Comment on above: Performed By: #### E RUR, UMICRO #### [facility] [address] [place] [address] Dr. Kamala Zelaya Glucose Ql (U) Negative Normal NEGATIVE [facility] Comment on above: Performed By: #### E RUR, UMICRO #### [facility] [address] [place] [address] Dr. Kamala Zelaya Hemoglobin Ql (U) SMALL Abnormal NEGATIVE [facility] Comment on above: Performed By: #### CIARA ROMAN #### [facility] [address] [place] [address] Dr. Kamala Zelaya Ketones Ql (U) 15 mg/dl Abnormal NEGATIVE [facility] Comment on above: Performed By: #### CIARA ROMAN #### [facility] [address] [place] [address] Dr. Kamala Zelaya LEUKOCYTES MODERATE Abnormal NEGATIVE [facility] Comment on above: Performed By: #### CIARA ROMAN #### [facility] [address] [place] [address] Dr. Kamala Zelaya Nitrite Ql (U) Negative Normal NEGATIVE [facility] Comment on above: Performed By: #### CIARA ROMAN #### [facility] [address] [place] [address] Dr. Kamala Zelaya pH (U) 6.0 [pH] Normal 5-[address] [facility] Comment on above: Performed By: #### CIARA ROMAN #### [facility] [address] [place] [address] Dr. Kamala Zelaya Protein (U) [Mass/Vol] 30 mg/dL Abnormal NEGAT ZACHARY/ TRACE [facility] Comment on above: Performed By: #### CIARA ROMAN #### [facility] [address] [place] [address] Dr. Kamala Zelaya SPEC GRAVITY >=1.030 Abnormal 1.005-<=1.025 [facility] Comment on above: Performed By: #### CIARA ROMAN #### [facility] [address] [place] [address] Dr. Kamala Zelaya UR MICRO IND INDICATED Normal [facility] Comment on above: Performed By: #### CIARA ROMAN #### [facility] [address] [place] [address] Dr. Kamala Zelaya Urobilinogen Qn (U) 0.2 {Agustín'U}/dL Normal 0.2 - 1. 0 [facility] Comment on above: Performed By: #### E CIARA ADAME #### [facility] [address] [place] [address] Dr. Kamala Zelaya LACTATE/LACTIC ACIDon 2021 Lactate [Moles/Vol] 1.6 mmol/L Normal 0.4-1.9 [facility] Comment on above: Performed By: #### C BC #### [facility] [address] [place] [address] Dr. Kamala Zelaya Lactate [Moles/Vol] 2.0 mmol/L Critically high 0.4-1.9 [facility] Comment on above: Performed By: #### C BC #### [facility] [address] [place] [address] Dr. Kamala Zelaya LIPASEon 02-17-2022 Lipase [Catalytic activity/Vol] 88.0 U/L Normal 73.0-393.0 [facility] Comment on above: Performed By: #### U AMIC #### [facility] [address] [place] [address] Dr. Kamala Zelaya PROF 14(COMP METB)on 022 Albumin [Mass/Vol] 4.0 g/dL Normal 3.4-5.0 [facility] Comment on above: Performed By: #### U AMIC #### [facility] [address] [place] [address] Dr. Kamala Zelaya Albumin/Globulin [Mass ratio] 0.9 {ratio} Normal [facility] Comment on above: Performed By: #### U AMIC #### [facility] [address] [place] [address] Dr. Kamala Zelaya ALP [Catalytic activity/Vol] 95 U/L Normal 46-[address] [facility] Comment on above: Performed By: #### U AMIC #### [facility] [address] [place] [address] Dr. Kamala Zelaya ALT [Catalytic activity/Vol] 14 U/L Normal 14-[address] [facility] Comment on above: Performed By: #### U AMIC #### [facility] [address] [address] [address] Kamala Zelaya Anion gap [Moles/Vol] 13.9 mmol/L Normal Th [facility] Comment on above: Performed By: #### U AMIC #### [facility] [address] [address] [address] Kamala Zelaya AST [Catalytic activity/Vol] 14 U/L Critically low 15-37 [facility] Comment on above: Performed By: #### U AMIC #### [facility] [address] [address] [address] Kamala Zelaya Bilirubin [Mass/Vol] 0.8 mg/dL Normal 0.2-1.0 [facility] Comment on above: Performed By: #### U AMIC #### [facility] [address] [address] [address] Kamala Zelaya Calcium [Mass/Vol] 10.7 mg/dL Critically high 8.5-10.1 [facility] Comment on above: Performed By: #### U AMIC #### [facility] [address] [address] [address] Kamala Zelaya Chloride [Moles/Vol] 97 mmol/L Critically low 98-107 [facility] Comment on above: Performed By: #### U AMIC #### [facility] [address] [address] [address] Kamala Zelaya CO2 [Moles/Vol] 27.0 mmol/L Normal 21.0-32.0 [facility] Comment on above: Performed By: #### U AMIC #### [facility] [address] [address] [address] Kamala Zelaya Creatinine [Mass/Vol] 0.76 mg/dL Normal 0.55-1.02 [facility] Comment on above: Performed By: #### U AMIC #### [facility] [address] [address] [address] Kamala Zelaya EGFR-AF VENEZUELAN >60 Normal >=60 [facility] Comment on above: Performed By: #### U AMIC #### [facility] [address] [address] [address] Kamala Zelaya EGFR-NON AF VENEZUELAN >60 Normal >=60 [facility] Comment on above: Performed By: #### U AMIC #### [facility] [address] [address] [address] Kamala Zelaya Globulin (S) [Mass/Vol] 4.4 g/dL Normal [facility] Comment on above: Performed By: #### U AMIC #### [facility] [address] [address] [address] Kamala Zelaya Glucose [Mass/Vol] 142 mg/dL Critically high 74-106 [facility] Comment on above: Performed By: #### U AMIC #### [facility] [address] [address] [address] Kamala Zelaya Potassium [Moles/Vol] 3.9 mmol/L Normal 3.5-5.1 [facility] Comment on above: Performed By: #### U AMIC #### [facility] [address] [address] [address] Kamala Zelaya Protein [Mass/Vol] 8.4 g/dL Critically high 6.4-8.2 [facility] Comment on above: Performed By: #### U AMIC #### [facility] [address] [place] [address] Dr. Kamala Zelaya Sodium [Moles/Vol] 134 mmol/L Critically low 136-145 [facility] Comment on above: Performed By: #### U AMIC #### [facility] [address] [address] [address] Kamala Zelaya Urea nitrogen [Mass/Vol] 18.0 mg/dL Normal 7.0-18.0 [facility] Comment on above: Performed By: #### U AMIC #### [facility] [address] [address] [address] Kamala Zelaya Urea nitrogen/Creatinine [Mass ratio] 23.7 mg/mg Normal [facility] Comment on above: Performed By: #### U AMIC #### [facility] [address] [place] [address] Dr. Kamala Zelaya URINE MICROSCOPIC ONLYon BACTERIA LARGE Abnormal NONE SEEN [facility] Comment on above: Performed By: #### E DEEP UMICRO #### [facility] [address] [place] [address] Dr. Kamala Zelaya Bacteria identified Cx Nom (U) INDICATED Normal [facility] Comment on above: Performed By: #### Christina ADAME UMICRO #### [facility] [address] [place] [address] Dr. Kamala Zelaya CAST NONE SEEN Normal NONE SEEN [facility] Comment on above: Performed By: #### Christina ADAME UMICRO #### [facility] [address] [place] [address] Dr. Kamala Zelaya Crystals LM Nom (Urine sed) NONE SEEN Normal NONE SEEN [facility] Comment on above: Performed By: #### Christina ADAME UMICRO #### [facility] [address] [place] [address] Dr. Kamala Zelaya Epithelial cells LM Ql (Urine sed) FEW Abnormal NONE SEEN /RARE [facility] Comment on above: Performed By: #### Christina ADAME UMICRO #### [facility] [address] [place] [address] Dr. Kamlaa Zelaya MUCOUS NONE SEEN Normal NONE SEEN [facility] Comment on above: Performed By: #### Christina ADAME UMICRO #### [facility] [address] [place] [address] Dr. Kamala Zelaya RBC 5-10 Abnormal 0-[address] [facility] Comment on above: Performed By: #### Christina ADAME UMICRO #### [facility] [address] [place] [address] Dr. Kamala Zelaya WBC 75-100 Abnormal NONE SEEN [facility] Comment on above: Performed By: #### Christina ADAME UMICRO #### [facility] [address] [place] [address] Dr. Kamala Zelaya XR ABD FLAT_UPon 02-17-2022 XR ABD FLAT_UP EXAM: XR ABD FLAT_UP REASON FOR EXAM: Female, 66 years, nausea and vomiting. TECHNIQUE: Supine and upright views of the abdomen and pelvis are performed. COMPARISON: Esophagram, same date. FINDINGS: The lung bases are clear. The abdominal bowel gas pattern is nonspecific. No small bowel obstruction. There is some residual barium throughout the small bowel. The small bowel is mildly gas distended with multiple small air-fluid levels which may represent ileus. No high-grade obstruction is seen. There is no demonstrated free abdominal air. The visualized liver, spleen, and kidneys are grossly normal in size and morphology. Normal soft tissue structures. Degenerative changes are seen within the spine. IMPRESSION: Nonspecific abdominal bowel gas pattern with findings suggesting ileus. No high-grade obstruction. Electronically authenticated by: SANDY DRAKE Date: 2022-02-17 20:11 Normal [facility] XR ESOPHAGUSon 02-17-2022 XR ESOPHAGUS EXAMINATION: XR ESOPHAGUS, XR CINERADIOGRAPHY HISTORY: Achalasia of esophagus COMPARISON: No relevant comparison available. TECHNIQUE: A swallowing evaluation was performed with fluoroscopy in the usual manner. Standard level fluoroscopic mode of operation utilized. FINDINGS: ORAL PHASE: Normal deglutition. PHARYNGEAL PHASE: Normal swallowing. ASPIRATION: None. STRUCTURE: There is foodstuffs filling of a dilated esophagus extending to a beaked narrowing at the gastroesophageal junction. Trickle of contrast identified flowing into the stomach OTHER: Negative. IMPRESSION: High-grade narrowing of the gastroesophageal junction without occlusion. Findings are consistent with known achalasia Electronically authenticated by: CHEN MARLEY Date: 2022-02-17 13:54 Normal [facility] - Hematology and Cell countsOrdered By: Dallas Singletary on 10-31-2021 Nucleated RBC/100 WBC (Bld) [Ratio] 0.2 % 0-0.5 [facility] CBC AUTO DIFFon 10-16-2021 BASO # 0.1 103/ul Normal 0.0-0.1 [facility] Comment on above: Performed By: #### C BC #### [facility] [address] [address] [address] Kamala Zelaya Basophils/100 WBC (Bld) 0.9 % Normal 0.2-2.0 [facility] Comment on above: Performed By: #### C BC #### [facility] [address] [place] [address] Dr. Kamala Zelaya EO # 0.2 103/ul Normal 0.0-0.7 [facility] Comment on above: Performed By: #### C BC #### [facility] [address] [place] [address] Dr. Kamala Zelaya Eosinophils/100 WBC (Bld) 3.7 % Normal 0.9-7.0 [facility] Comment on above: Performed By: #### C BC #### [facility] [address] [place] [address] Dr. Kamala Zelaya Erythrocyte distribution width (RBC) [Ratio] 14.6 % Normal 11.0-15.0 [facility] Comment on above: Performed By: #### C BC #### [facility] [address] [place] [address] Dr. Kamala Zelaya Hematocrit (Bld) [Volume fraction] 47.0 % Normal 36.0-48.0 [facility] Comment on above: Performed By: #### C BC #### [facility] [address] [place] [address] Dr. Kamala Zelaya Hemoglobin (Bld) [Mass/Vol] 14.4 g/dL Normal 12.0-16.0 [facility] Comment on above: Performed By: #### C BC #### [facility] [address] [place] [address] Dr. Kamala Zelaya IG # 0.01 10e3/ul Normal 0.00-0.03 [facility] Comment on above: Performed By: #### C BC #### [facility] [address] [place] [address] Dr. Kamala Zelaya IG % 0.2 % Normal 0.0-0.[address] [facility] Comment on above: Performed By: #### C BC #### [facility] [address] [place] [address] Dr. Kamala Zelaya LYMPH # 1.4 103/ul Normal 1.2-3.[address] [facility] Comment on above: Performed By: #### C BC #### [facility] [address] [address] [address] Kamala Zelaya Lymphocytes/100 WBC (Bld) 25.5 % Normal 20.5-60.0 [facility] Comment on above: Performed By: #### C BC #### [facility] [address] [address] [address] Kamala Zelaya MANUAL DIFF REQ NO Normal [facility] Comment on above: Performed By: #### C BC #### [facility] [address] [address] [address] Kamala Zelaya MCH (RBC) [Entitic mass] 26.2 pg Critically low 26.7-34 .0 [facility] Comment on above: Performed By: #### C BC #### [facility] [address] [place] [address] Dr. Kamala Zelaya MCHC (RBC) [Mass/Vol] 30.6 g/dL Normal 29.9-35.2 [facility] Comment on above: Performed By: #### C BC #### [facility] [address] [place] [address] Dr. Kamala Zelaya MCV (RBC) [Entitic vol] 85.6 fL Normal 81.0-99.0 [facility] Comment on above: Performed By: #### C BC #### [facility] [address] [place] [address] Dr. Kamala Zelaya MONO # 0.4 103/ul Normal 0.3-0.8 [facility] Comment on above: Performed By: #### C BC #### [facility] [address] [place] [address] Dr. Kamala Zelaya Monocytes/100 WBC (Bld) 7.0 % Normal 1.7-12.0 [facility] Comment on above: Performed By: #### C BC #### [facility] [address] [place] [address] Dr. Kamala Zelaya NEUT # 3.4 103/ul Normal 1.4-6.5 [facility] Comment on above: Performed By: #### C BC #### [facility] [address] [address] [address] Kamala Zelaya Neutrophils/100 WBC (Bld) 62.7 % Normal 43.0-75.0 [facility] Comment on above: Performed By: #### C BC #### [facility] [address] [address] [address] Kamala Zelaya Platelet mean volume (Bld) [Entitic vol] 11.0 fL Normal 9.5-13.5 [facility] Comment on above: Performed By: #### C BC #### [facility] [address] [address] [address] Kamala Zelaya PLT 244 103/ul Normal 150-450 [facility] Comment on above: Performed By: #### C BC #### [facility] [address] [place] [address] Dr. Kamala Zelaya RBC 5.49 106/ul Critically high 4.20-5.40 [facility] Comment on above: Performed By: #### C BC #### [facility] [address] [address] [address] Kamala Zelaya WBC 5.4 103/ul Normal 4.0-11.0 [facility] Comment on above: Performed By: #### C BC #### [facility] [address] [place] [address] Dr. Kamala Zelaya CULTURE URINEon 10-16-2021 CULTURE URINE Culture Observations: HEAVY GROWTH OF MIXED GENITAL DELROY. NO POTENTIAL PATHOGENS SEEN. Normal [facility] Comment on above: Performed By: #### U RCX #### [facility] [address] [place] [address] Dr. Kamala Zelaya FERRITINon 10-16-2021 Ferritin [Mass/Vol] 12.0 ng/mL Normal 8.0-252.0 [facility] Comment on above: Performed By: #### F ERR #### [facility] [address] [place] [address] Dr. Kamala Zelaya PROF 14(COMP METB)on 022 Albumin [Mass/Vol] 3.8 g/dL Normal 3.4-5.0 [facility] Comment on above: Performed By: #### U AMIC #### [facility] [address] [address] [address] Kamala Zelaya Albumin/Globulin [Mass ratio] 0.9 {ratio} Normal [facility] Comment on above: Performed By: #### U AMIC #### [facility] [address] [address] [address] Kamala Zelaya ALP [Catalytic activity/Vol] 88 U/L Normal 46-116 [facility] Comment on above: Performed By: #### U AMIC #### [facility] [address] [address] [address] Kamala Zelaya ALT [Catalytic activity/Vol] 19 U/L Normal 14-59 [facility] Comment on above: Performed By: #### U AMIC #### [facility] [address] [address] [address] Kamala Zelaya Anion gap [Moles/Vol] 11.9 mmol/L Normal [facility] Comment on above: Performed By: #### U AMIC #### [facility] [address] [address] [address] Kamala Zelaya AST [Catalytic activity/Vol] 10 U/L Critically low 15-37 [facility] Comment on above: Performed By: #### U AMIC #### [facility] [address] [address] [address] Kamala Zelaya Bilirubin [Mass/Vol] 0.5 mg/dL Normal 0.2-1.0 [facility] Comment on above: Performed By: #### U AMIC #### [facility] [address] [address] [address] Kamala Zelaya Calcium [Mass/Vol] 9.8 mg/dL Normal 8.5-10.1 [facility] Comment on above: Performed By: #### U AMIC #### [facility] [address] [address] [address] Kamala Zelaya Chloride [Moles/Vol] 105 mmol/L Normal 98-107 [facility] Comment on above: Performed By: #### U AMIC #### [facility] [address] [address] [address] Kamala Zelaya CO2 [Moles/Vol] 29.5 mmol/L Normal 21.0-32.0 [facility] Comment on above: Performed By: #### U AMIC #### [facility] [address] [address] [address] Kamala Zelaya Creatinine [Mass/Vol] 0.65 mg/dL Normal 0.55-1.[address] [facility] Comment on above: Performed By: #### U AMIC #### [facility] [address] [address] [address] Kamala Zelaya EGFR-AF VENEZUELAN >60 Normal >=60 [facility] Comment on above: Performed By: #### U AMIC #### [facility] [address] [address] [address] Kamala Zelaya EGFR-NON AF VENEZUELAN >60 Normal >=[address] [facility] Comment on above: Performed By: #### U AMIC #### [facility] [address] [address] [address] Kamala Zelaya Globulin (S) [Mass/Vol] 4.1 g/dL Normal T [facility] Comment on above: Performed By: #### U AMIC #### [facility] [address] [address] [address] Kamala Zelaya Glucose [Mass/Vol] 99 mg/dL Normal 74-106 [facility] Comment on above: Performed By: #### U AMIC #### [facility] [address] [address] [address] Kamala Zelaya Potassium [Moles/Vol] 4.4 mmol/L Normal 3.5-5.[address] [facility] Comment on above: Performed By: #### U AMIC #### [facility] [address] [address] [address] Kamala Zelaya Protein [Mass/Vol] 7.9 g/dL Normal 6.4-8.2 [facility] Comment on above: Performed By: #### U AMIC #### [facility] [address] [address] [address] Kamala Zelaya Sodium [Moles/Vol] 142 mmol/L Normal 136-145 [facility] Comment on above: Performed By: #### U AMIC #### [facility] [address] [place] [address] Dr. Kamala Zelaya Urea nitrogen [Mass/Vol] 15.0 mg/dL Normal 7.0-18.0 [facility] Comment on above: Performed By: #### U AMIC #### [facility] [address] [place] [address] Dr. Kamala Zelaya Urea nitrogen/Creatinine [Mass ratio] 23.1 mg/mg Normal [facility] Comment on above: Performed By: #### U AMIC #### [facility] [address] [place] [address] Dr. Kamala Zelaya UA RANDOM W/MICROSCOPICon BACTERIA LARGE Abnormal NONE SEEN [facility] Comment on above: Performed By: #### U AMIC #### [facility] [address] [place] [address] Dr. Kamala Zelaya Bilirubin Ql (U) Negative Normal NEGATIVE [facility] Comment on above: Performed By: #### U AMIC #### [facility] [address] [place] [address] Dr. Kamala Zelaya CAST NONE SEEN Normal NONE SEEN [facility] Comment on above: Performed By: #### U AMIC #### [facility] [address] [place] [address] Dr. Kamala Zelaya Clarity (U) CLEAR Normal CLEAR [facility] Comment on above: Performed By: #### U AMIC #### [facility] [address] [place] [address] Dr. Kamala Zelaya Color (U) RED Abnormal YELLOW [facility] Comment on above: Performed By: #### U AMIC #### [facility] [address] [place] [address] Dr. Kamala Zelaya Crystals LM Nom (Urine sed) NONE SEEN Normal NONE SEEN [facility] Comment on above: Performed By: #### U AMIC #### [facility] [address] [address] [address] Kamala Zelaya Epithelial cells LM Ql (Urine sed) FEW Abnormal NONE SEEN /RARE [facility] Comment on above: Performed By: #### U AMIC #### [facility] [address] [place] [address] Dr. Kamala Zelaya Glucose Ql (U) Negative Normal NEGATIVE [facility] Comment on above: Performed By: #### U AMIC #### [facility] [address] [address] [address] Kamala Zelaya Hemoglobin Ql (U) MODERATE Abnormal NEGATIVE [facility] Comment on above: Performed By: #### U AMIC #### [facility] [address] [place] [address] Dr. Kamala Zelaya Ketones Ql (U) TRACE Abnormal NEGATIVE [facility] Comment on above: Performed By: #### U AMIC #### [facility] [address] [place] [address] Dr. Kamala Zelaya LEUKOCYTES LARGE Abnormal NEGATIVE [facility] Comment on above: Performed By: #### U AMIC #### [facility] [address] [place] [address] Dr. Kamala Zelaya MUCOUS NONE SEEN Normal NONE SEEN [facility] Comment on above: Performed By: #### U AMIC #### [facility] [address] [place] [address] Dr. Kamala Zelaya Nitrite Ql (U) Negative Normal NEGATIVE [facility] Comment on above: Performed By: #### U AMIC #### [facility] [address] [place] [address] Dr. Kamala Zelaya pH (U) 5.5 [pH] Normal 5-[address] [facility] Comment on above: Performed By: #### U AMIC #### [facility] [address] [place] [address] Dr. Kamala Zelaya RBC 5-10 Abnormal 0-2 [facility] Comment on above: Performed By: #### U AMIC #### [facility] [address] [place] [address] Dr. Kamala Zelaya SPEC GRAVITY >=1.030 Abnormal 1.005-<=1.025 [facility] Comment on above: Performed By: #### U AMIC #### [facility] [address] [address] [address] Kamala Zelaya UA PROTEIN 30 mg/dl Abnormal NEGATIVE/ TRACE [facility] Comment on above: Performed By: #### U AMIC #### [facility] [id number] Kamala Zelaya Urobilinogen Qn (U) 0.2 {Agustín'U}/dL Normal 0.2 - 1. 0 [facility] Comment on above: Performed By: #### U AMIC #### [facility] [address] [address] [address] Kamala Zelaya WBC (U) [#/Vol] /uL Abnormal NONE SEEN [facility] Comment on above: Performed By: #### U AMIC #### [facility] [address] [address] [address] Kamala Zelaya [facility] KAVEH THEODORE ([id number]) 1955 F Date Time Provider Department 10/02/20 FRANTZ REYNA During your visit today, we recorded the following information about you: Jennifer Ham [facility] 10/02/2020 1:16 PM Signed Records faxed to [facility]. Patient gave verbal consent. Allergies As of Date: 10/02/2020 (No Known Allergies) Date Reviewed: 08/12/2018 Reviewed by: Cami Lizama - Fully Assessed Reason for Visit: records faxed [Other] Prescriptions as of 10/02/2020 - aspirin 81 mg chewable tablet Take 81 mg by mouth once daily. - metoprolol tartrate, short acting, (LOPRESSOR) 50 mg tablet Take 25 mg by mouth once daily. - amitriptyline (ELAVIL) 10 mg tablet TAKE 1 TABLET DAILY AT BEDTIME - esomeprazole 40 mg capsule Take 40 mg by mouth twice daily. Facility-Administere d Medications as of 10/02/2020 - NaCl 0.9% iv infusion - diphenhydrAMINE 50 mg injection (BENADRYL) - hydrocortisone sodium succinate 100 mg injection (Solu-CORTEF) - EPINEPHrine 0.3 mg injection - 0.9% NaCl 10-20 mL Problem List As Of Date 10/02/2020 Noted Resolved MORBID OBESITY [E66.01] 05/19/2008 ACHALASIA AND CARDIOSPASM [K22.0] 05/19/2008 Iron deficiency anemia [D50.9] 10/22/2015 Encounter Status:Closed by JENNIFER TROTTER on 10/02/20 Normal [facility] Vital Signs Date Time Vital Sign Value Performing Clinician Facility 08-21-2023 11:33-0400 Body temperature 97.8 [degF] MD Vero Pandya Work Phone: [facility] 08-21-2023 11:33-0400 Body weight 90.71 kg MD Vero Pandya Work Phone: [facility] 08-21-2023 11:33-0400 Diastolic blood pressure 103 mm[Hg] MD Vero Pandya Work Phone: [facility] 08-21-2023 11:33-0400 Heart rate 74 /min MD Vero Pandya Work Phone: [facility] 08-21-2023 11:33-0400 Respiratory rate 16 /min MD Vero Pandya Work Phone: [facility] 08-21-2023 11:33-0400 SaO2% (BldA) [Mass fraction] 100 % MD Vero Pandya Work Phone: [facility] 08-21-2023 11:33-0400 Systolic blood pressure 162 mm[Hg] MD Vero Pandya Work Phone: [facility] 12-05-2022 11:41-0400 Body temperature 97.1 [degF] MD Vero Pandya Work Phone: [facility] 12-05-2022 11:41-0400 Body weight 91.17 kg MD Vero Pandya Work Phone: [facility] 12-05-2022 11:41-0400 Diastolic blood pressure 88 mm[Hg] MD Vero Pandya Work Phone: [facility] 12-05-2022 11:41-0400 Heart rate 69 /min MD Vero Pandya Work Phone: [facility] 12-05-2022 11:41-0400 Respiratory rate 16 /min MD Vero Pandya Work Phone: [facility] 12-05-2022 11:41-0400 SaO2% (BldA) [Mass fraction] 98 % MD Vero Pandya Work Phone: [facility] 12-05-2022 11:41-0400 Systolic blood pressure 162 mm[Hg] MD Vero Pandya Work Phone: [facility] 11-18-2022 13:15-0400 Body height 172.72 cm Imad Asaad Other [facility] Other 11-18-2022 13:15-0400 Body mass index (BMI) [Ratio] 30.41 kg/m2 Imad Asaad Other [facility] Other 11-18-2022 13:15-0400 Body weight 90.72 kg Imad Asaad Other [facility] Other 11-18-2022 13:15-0400 Diastolic blood pressure 98 mm[Hg] Imad Asaad Other [facility] Other 11-18-2022 13:15-0400 Systolic blood pressure 150 mm[Hg] Imad Asaad Other [facility] Other 03-07-2022 11:26-0500 Body height 175.26 cm MD Vero Pandya Work Phone: [facility] 03-07-2022 11:26-0500 Body temperature 98 [degF] MD Vero Pandya Work Phone: [facility] 03-07-2022 11:26-0500 Body weight 91.5 kg MD Vero Pandya Work Phone: [facility] 03-07-2022 11:26-0500 Diastolic blood pressure 100 mm[Hg] MD Vero Pandya Work Phone: [facility] 03-07-2022 11:26-0500 Heart rate 89 /min MD Vero Pandya Work Phone: [facility] 03-07-2022 11:26-0500 Respiratory rate 18 /min MD Vero Pandya Work Phone: [facility] 03-07-2022 11:26-0500 SaO2% (BldA) [Mass fraction] 100 % MD Vero Pandya Work Phone: [facility] 03-07-2022 11:26-0500 Systolic blood pressure 163 mm[Hg] MD Vero Pandya Work Phone: [facility] Encounters Encounter Date Encounter Type Care Provider Facility Start: 09-08-2023 ambulatory Referral Self Facility: [facility] Start: 08-21-2023 End: 08-21-2023 ambulatory MD Vero Pandya Work Phone: [facility] Work Phone: Start: 08-21-2023 End: 08-21-2023 Patient encounter procedure MD Vero Pandya Work Phone: [facility] Ambulatory Work Phone: Start: 08-21-2023 Registered Recurring MD Vero Pandya Work Phone: [facility] Acute Work Phone: Start: 07-15-2023 Non-patient / Non-visit MD Vero Pandya Work Phone: [facility] [employer] Work Phone: Start: 02-25-2023 End: 02-25-2023 ambulatory Imad Asaad Other [facility] Other Start: 02-25-2023 Telephone encounter Imad Asaad [facility] Start: 02-13-2023 End: 02-13-2023 ambulatory Imad Asaad Facility:[facility] Start: 12-05-2022 End: 12-05-2022 ambulatory MD Vero Pandya Work Phone: [facility] Work Phone: Start: 12-05-2022 End: 12-05-2022 Registered Recurring MD Vero Pnadya [facility] Work Phone: Start: 11-18-2022 End: 11-18-2022 ambulatory Imad Asaad Other [facility] Other Start: 11-18-2022 Office outpatient ne w 45 minutes Imad Asaad [facility] Start: 03-07-2022 End: 03-07-2022 ambulatory MD Vero Pandya Work Phone: [facility] Work Phone: Start: 03-07-2022 End: 03-07-2022 Registered Recurring MD Vero Pandya [facility] Start: 02-27-2022 End: 02-27-[address] VERO PANDYA Facility: Start: 02-24-2022 Adult health examination Imad Asaad Other [facility] Other Start: 02-17-2022 End: 02-18-[address] VERO PANDYA Facility:[facility] Start: 10-16-2021 End: 10-17-[address] VERO PANDYA Facility:[facility] Plan of Treatment Date Care Activity Detail Author Start: 08-17-2023 Calcitriol [Mass/vol ume] in Serum or Plasma [facility] Start: 08-17-2023 Erythropoietin (EPO) [Units/volume] in Serum or Plasma [facility] Start: 08-17-2023 [facility] Start: 02-10-2023 [facility] Start: 09-19-2022 [facility] Start: 09-12-2022 [facility] Start: 11-22-2021 [facility] Start: 11-22-2021 [facility] Start: 11-12-2021 [facility] Start: 11-08-2021 [facility] Start: 11-08-2020 [facility] Start: 11-01-2020 [facility] Calcitriol [Mass/vol ume] in Serum or Plasma [facility] Comprehensive metabo lic 1999 panel - Serum or Plasma [facility] metabo lic 1999 panel - Serum or Plasma [facility] Erythropoietin (EPO) [Units/volume] in Serum or Plasma [facility] Ferritin [Mass/volum e] in Serum or Plasma [facility] Payers Date Payer Category Payer Self-pay [id number] 1958 Medicare [id number] 1958 Private Health Insurance [id number] 1955 Unknown [id number] 1955 Unknown [id number] 1955 Unknown [id number] Private Health Insurance [employer] [id number] Unknown [id number] Unknown [id number] Social History Date Type Detail Facility Start: 03-07-2022 End: 12-05-2022 Tobacco smoking status [facility] Ex-smoker (finding) [facility] Start: 1955 Sex Assigned At Female F [facility] Sex Assigned At Sex Assigned At Bir th [facility] Other Start: 08-21-2023 Tobacco smoking status [facility] Never smoked tobacco (finding) [facility] Evaluation note 11-18-2022 Note Date & Type Note Facility 11-18-2022 Evaluation note Encounter Date Diagnosis Assessment Notes Oct, Iron deficiency anemia, unspecified (ICD-10 - D50.9) Patient has never had a colonoscopy. Patient advised to proceed with a colonoscopy to evaluate iron defiency anemia. Oct, Achalasia (ICD-10 - K22.0) Oct, Other patient to sign release for for egd and CT scan from [facility] Other Progress note 09-09-2022 Note Date & Type Note Facility 09-09-2022 Progress note Note Date/Time September 05, 2022 2:42p m [facility] [place] [address] Hem/Onc Follow Up Note - OP Signed Patient: Kaveh Theodore MR#: [id number] : 1955 Acct:[id number] Age/Sex: 66 / F Type: REG RCR Copies to: Vero Pandya MD SELF,REFERRAL ~ Date of Service: 09/05/2022 Time of Service: 14:42 - Assessment & Plan (1) Iron deficiency anemia Plan: 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 poorly tolerates oral iron. seems to require iv iron about once a year. known achalasia. last scope [place] dec [address] Stephens. they go to [place] in the fall. She will again get IV iron repletion in october 2021. by january, she already has a low iron saturation. ferritin is normal. she is going to [place] after mar 30 2022, she has agreed to gi evaluation shwn she retuns in july. She previously saw dr foster. we discussed her fears with colonoscopy and potential alternatives, sigmoidoscopy, ct colonography, cologuard etc. will defer to GI. August 2022 iron studies with low ferritin, she is symptomatic so will give additional IV iron. B12 deficiency will initiate monthly B12 injections Follow Up Instructions: IV Injectafer x 2 B12 injections monthly cbc, cmp, iron studies in 3mo follow-up in 3mo - History of Present Illness Chief Complaint: 6 month follow up 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 She has required IV iron treatments in the past. At [facility] Dr. Mclaughlin gave her IV iron 2016, 2017, May 2019 and more recently April 2020 down in [place]. She had microcytic anemia consistent with iron deficiency down to [place] this April and was given IV iron treatments. She is presenting in follow-up today October 18, 2020. She is not having ice craving. No exertional dyspnea. She does get fatigue. 11/01/21 she does not tolerate iron well at all. She does not have regular scopes for her achalasia. She requires iron yearly. she does take a supplement with low dose iron in it. She is not yet eating ice. 03/07/22 she is doing well overall. she has not ever had a colonoscopy. She has no desire to get one she is scared. she got iv iron again in october and again her iron is a bit low. She was vomiting prior to hospitalization. she spent a night in hospital two weeks ago, she felt very bad, she got IV fluids and EGD. discharged next day. she had repeat EGD with Dr. Stephens two weeks ago at [place], found no concerns. had a lower GI xray was normal. esophageal biopsy was performed but no results have been told to the patient. 09/05/22 she is doing ok overall, is tired more than previously and has some dyspnea on exertion denies dark or tarry stool she was not able to get in with GI, she states they called but it was right whenkate was going to [place] so did not call back, we will re-refer today labs with hgb 14, iron saturation 20.1% and ferritin 11.8 - Physical Exam The patient is alert and oriented x3. Eyes are anicteric. Extraocular muscles are intact. Neck shows no JVD. Lungs audibly with good air exchange. Neurological exam is grossly intact. Psychiatric exam shows a normal affect. - Time with Patient Coordination of Care & Counseling Time: Greater than 50% of time spent with patient was for coordination of care (as documented) and [id number] counseling of patient and/or family. [facility] - Medical History Medical History: Medical History (Last Reviewed 10/18/20 @ 13:00 by Marva August) Achalasia - Surgical History Surgical History: Surgical History (Last Updated 10/18/20 @ 13:10 by Marva August) H/O tubal ligation History of vein stripping Hx of cholecystectomy - Family History Family History: Family History (Last Updated 10/18/20 @ 13:01 by Marva August) Grandparent Diabetes - Social History Smoking Status: Former smoker Substance Use Type: None Additional Data - Additional Objective Data Height/Weight: Height 5 ft 9 in Weight 90.9 kg Vital Signs: 09/05/22 11:07 Temperature 98.4 F Pulse Rate [Right Brachial] 79 Respiratory Rate 16 Blood Pressure [Right Arm] 136/89 02 Sat by Pulse Oximetry 99 Oxygen Delivery Method Room Air - Lab Results Diagram of Most Recent CBC and CMP 09/01/22 09:32 09/01/22 09:32 Labs - Last 7 Days 09/01/22 09:32: PHA Creatinine Clear 84.47, Sodium 138, Potassium 5.0, Chloride 104, Carbon Dioxide 29.2, Anion Gap 9.8, BUN 15, Creatinine 0.60, Est GFR (CKD-EPI) > 60.0, Glucose 91, Calcium 10.1, Iron 69, TIBC 344, Iron Saturation 20.1, Transferrin 246, Ferritin 11.8, Total Bilirubin 0.6, AST 12 L, ALT 8, Alkaline Phosphatase 81, Total Protein 7.0, Albumin 4.0, Globulin 3.0, Albumin/Globulin Ratio 1.3 09/01/22 09:32: Corrected WBC 4.8, Uncorrected WBC Count 4.8, RBC 5.28 H, Hgb 14.0, Hct 43.2, MCV 81.7, MCH 26.6, MCHC 32.5, RDW 15.0, Plt Count 223, MPV 9.2,Neut % (Auto) 65.5, Lymph % (Auto) 22.0, [place] % (Auto) 7.2, Eos % (Auto) 4.3, Baso % (Auto) 1.0, Nucleat RBC Rel Count 0.1, Neut # (Auto) 3.1, Lymph # (Auto) 1.0, [place] # (Auto) 0.3, Eos # (Auto) 0.2, Baso # (Auto) 0.0 - Home Medications and Allergies Allergies/Adverse Reactions: Allergies No Known Allergies Allergy (Verified 09/05/22 11:06) Home Medications: Home Medications pantoprazole 40 mg tablet,delayed release 40 mg PO DAILY 09/05/22 [History Confirmed 09/05/22] Dictated By: Cherise Jenkins APRN DD/ 144 Signed By: <Electronically signed by SANDY Jenkins> 09/09/22 1432 [facility] Work Phone: Progress note 03-07-2022 Note Date & Type Note Facility 03-07-2022 Progress note Note Date/Time March 07, 2022 11:50am [facility] [place] [address] Hem/Onc Follow Up Note - OP Signed Patient: Kaveh Theodore MR#: [id number] : 1955 Acct:[id number] Age/Sex: 66 / F Type: REG RCR Copies to: Vero Pandya MD SELF,REFERRAL ~ Date of Service: 03/07/2022 Time of Service: 11:49 - Assessment & Plan (1) Iron deficiency anemia Plan: 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 poorly tolerates oral iron. seems to require iv iron about once a year. known achalasia. last scope [place] dec [address] Dr. Stephens. they go to [place] in the fall. She will again get IV iron repletion in october 2021. by january, she already has a low iron saturation. ferritin is normal. she is going to [place] after mar 30 2022, she has agreed to gi evaluation shwn she retuns in july. She previously saw dr foster. we discussed her fears with colonoscopy and potential alternatives, sigmoidoscopy, ct colonography, cologuard etc. will defer to GI. Follow Up Instructions: get records from [place] EGD, and path. get vist scheduled wit GI in . f/u with me or community educator afterwards cbc, cmp, iron studies prior to f/u . - History of Present Illness Chief Complaint: Patient is here for a 4 month follow up with labs for review. No concerns voiced at this time. 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 She has required IV iron treatments in the past. At [facility] Dr. Mclaughlin gave her IV iron 2016, 2017, May 2019 and more recently April 2020 down in [place]. She had microcytic anemia consistent with iron deficiency down to [place] this April and was given IV iron treatments. She is presenting in follow-up today October 18, 2020. She is not having ice craving. No exertional dyspnea. She does get fatigue. 11/01/21 she does not tolerate iron well at all. She does not have regular scopes for her achalasia. She requires iron yearly. she does take a supplement with low dose iron in it. She is not yet eating ice. 03/07/22 she is doing well overall. she has not ever had a colonoscopy. She has no desire to get one she is scared. she got iv iron again in october and again her iron is a bit low. She was vomiting prior to hospitalization. she spent a night in hospital two weeks ago, she felt very bad, she got IV fluids and EGD. discharged next day. she had repeat EGD with Dr. Stephens two weeks ago at [place], found no concerns. had a lower GI xray was normal. esophageal biopsy was performed but no results have been told to the patient. - Physical Exam The patient is alert and oriented x3. Eyes are anicteric. Extraocular muscles are intact. Neck shows no JVD. Lungs audibly with good air exchange. Neurological exam is grossly intact. Psychiatric exam shows a normal affect. - Time with Patient Coordination of Care & Counseling Time: Greater than 50% of time spent with patient was for coordination of care (as documented) and [id number] counseling of patient and/or family. [facility] - Medical History Medical History: Medical History (Last Reviewed 10/18/20 @ 13:00 by Marva August) Achalasia - Surgical History Surgical History: Surgical History (Last Updated 10/18/20 @ 13:10 by Marva August) H/O tubal ligation History of vein stripping Hx of cholecystectomy - Family History Family History: Family History (Last Updated 10/18/20 @ 13:01 by Marva August) Grandparent Diabetes - Social History Smoking Status: Former smoker Substance Use Type: None Additional Data - Additional Objective Data Height/Weight: Height 5 ft 9 in Weight 91.5 kg Vital Signs: 03/07/22 11:26 Temperature 98 F Pulse Rate [Right Brachial] 89 Respiratory Rate 18 Blood Pressure [Right Arm] 163/100 H 02 Sat by Pulse Oximetry 100 Oxygen Delivery Method Room Air - Lab Results Diagram of Most Recent CBC and CMP 03/04/22 11:53 03/04/22 11:53 Labs - Last 7 Days 03/04/22 11:53: PHA Creatinine Clear 85.53, Sodium 139, Potassium 5.0, Chloride 104, Carbon Dioxide 28.4, Anion Gap 11.6, BUN 15, Creatinine 0.72, Est GFR ( Amer) > 60, Est GFR (Non-Af Amer) > 60, Glucose 100, Calcium 9.9, Iron 40, TIBC 272, Iron Saturation 14.0 L, Transferrin 194, Ferritin 90.9, Total Bilirubin 0.4, AST 15, ALT 13, Alkaline Phosphatase 77, Total Protein 6.7, Albumin 3.6, Globulin 3.1, Albumin/Globulin Ratio 1.2, Vitamin B12 214, Folate 7.6 03/04/22 11:53: Corrected WBC 4.6, Uncorrected WBC Count 4.6, RBC 5.03 H, Hgb 14.1, Hct 44.0, MCV 87.4, MCH 28.1, MCHC 32.1, RDW 13.9, Plt Count 257, MPV 9.1,Neut % (Auto) 62.1, Lymph % (Auto) 25.1, [place] % (Auto) 7.5, Eos % (Auto) 4.2, Baso % (Auto) 1.1, Nucleat RBC Rel Count 0.1, Neut # (Auto) 2.9, Lymph # (Auto) 1.2, [place] # (Auto) 0.3, Eos # (Auto) 0.2, Baso # (Auto) 0.1 - Home Medications and Allergies Allergies/Adverse Reactions: Allergies No Known Allergies Allergy (Verified 03/07/22 11:25) Home Medications: Home Medications esomeprazole magnesium 20 mg capsule,delayed release (Nexium) 20 mg PO DAILY 10/18/20 [History Confirmed 03/07/22] Dictated By: Dallas Singletary II, DO DD/ 1149 Signed By: <Electronically signed by Dallas Singletary II, DO> 03/07/22 1200 [facility] Work Phone: History general Narrative - Reported 01-28-2022 Note Date & Type Note Facility 01-28-2022 History general N arrative - Reported Type Medical History achalasia Medical History anemia Medical History stent placement Surgical History No know Surgical history Hospitalization History dehydration 01/2022 [facility] Other Progress note 11-03-2021 Note Date & Type Note Facility 11-03-2021 Progress note Note Date/Time November 01, 2021 12:00pm [facility] [place] [address] Hem/Onc Follow Up Note - OP Signed Patient: Kaveh Theodore MR#: [id number] : 1955 Acct:[id number] Age/Sex: 66 / F Type: REG RCR Copies to: Vero Pandya MD SELF,REFERRAL ~ Date of Service: 11/01/2021 Time of Service: 11:58 - Assessment & Plan (1) Iron deficiency anemia Plan: 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 poorly tolerates oral iron. seems to require iv iron about once a year. known achalasia. she does not get regular scopes any longer for this they go to [place] in the fall. She will again get IV iron repletion in october 2021. Follow Up Instructions: give iv iron x 2 doses. f/u in february. check cbc, cmp, iron studies, b12, folate prior to f/u. 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 She has required IV iron treatments in the past. At [facility] Dr. Mclaughlin gave her IV iron 2016, 2017, May 2019 and more recently April 2020 down in [place]. She had microcytic anemia consistent with iron deficiency down to [place] this April and was given IV iron treatments. She is presenting in follow-up today October 18, 2020. She is not having ice craving. No exertional dyspnea. She does get fatigue. 11/01/21 she does not tolerate iron well at all. She does not have regular scopes for her achalasia. She requires iron yearly. she does take a supplement with low dose iron in it. She is not yet eating ice. - Physical Exam The patient is alert and oriented x3. Eyes are anicteric. Extraocular muscles are intact. Neck shows no JVD. Lungs audibly with good air exchange. Neurological exam is grossly intact. Psychiatric exam shows a normal affect. - Time with Patient Coordination of Care & Counseling Time: Greater than 50% of time spent with patient was for coordination of care (as documented) and [id number] counseling of patient and/or family. [facility] - Medical History Medical History: Medical History (Last Reviewed 10/18/20 @ 13:00 by Marva August) Achalasia - Surgical History Surgical History: Surgical History (Last Updated 10/18/20 @ 13:10 by Marva August) H/O tubal ligation History of vein stripping Hx of cholecystectomy - Family History Family History: Family History (Last Updated 10/18/20 @ 13:01 by Marva August) Grandparent Diabetes - Social History Smoking Status: Former smoker Substance Use Type: None Additional Data - Additional Objective Data Height/Weight: Height 5 ft 9 in Weight 93.894 kg Vital Signs: 11/01/21 11:46 Temperature 97.8 F Pulse Rate [Right Brachial] 71 Respiratory Rate 16 Blood Pressure [Right Arm] 180/116 H 02 Sat by Pulse Oximetry 98 Oxygen Delivery Method Room Air - Lab Results Diagram of Most Recent CBC and CMP 10/31/21 10:33 10/18/20 13:33 Labs - Last 7 Days 10/31/21 10:33: Iron Cancelled, TIBC Cancelled, Iron Saturation Cancelled, Transferrin Cancelled, Ferritin Cancelled 10/31/21 10:33: Corrected WBC Cancelled, Uncorrected WBC Count Cancelled, RBC Cancelled, Hgb Cancelled, Hct Cancelled, MCV Cancelled, MCH Cancelled, MCHC Cancelled, RDW Cancelled, Plt Count Cancelled, MPV Cancelled, Neut % (Auto) Cancelled, Lymph % (Auto) Cancelled, [place] % (Auto) Cancelled, Eos % (Auto) Cancelled, Baso % (Auto) Cancelled, Neut # (Auto) Cancelled, Lymph # (Auto) Cancelled, [place] # (Auto) Cancelled, Eos # (Auto) Cancelled, Baso # (Auto) Cancelled, Nucleated RBC % (auto) Cancelled 10/31/21 10:30: Iron 43, TIBC 391, Iron Saturation 10.0 L, Transferrin 279, Ferritin 8.4 L 10/31/21 10:30: Corrected WBC 5.9, Uncorrected WBC Count 5.9, RBC 5.24 H, Hgb 13.9, Hct 43.3, MCV 82.7, MCH 26.5, MCHC 32.1, RDW 15.8 H, Plt Count 245, MPV 9.4, Neut % (Auto) 69.5, Lymph % (Auto) 18.7, [place] % (Auto) 7.6, Eos % (Auto) 3.3, Baso % (Auto) 0.9, Neut # (Auto) 4.1, Lymph # (Auto) 1.1, [place] # (Auto) 0.4, Eos # (Auto) 0.2, Baso # (Auto) 0.1, Nucleated RBC % (auto) 0.2 - Home Medications and Allergies Allergies/Adverse Reactions: Allergies No Known Allergies Allergy (Verified 11/01/21 11:45) Home Medications: Home Medications esomeprazole magnesium 20 mg capsule,delayed release (Nexium) 20 mg PO DAILY 10/18/20 [History Confirmed 11/01/21] Dictated By: Dallas Singletary II, DO DD/ 1158 Signed By: <Electronically signed by Dallas Singletary II, DO> 11/03/21 1621 [facility] Work Phone: Progress note 12-04-2020 Note Date & Type Note Facility 12-04-2020 Progress note Note Date/Time December 04, 2020 1:[address] [place] [address] [place] [address] Hem/Onc Follow Up Note - OP Signed Patient: Kaveh Theodore MR#: [id number] : 1955 Acct:[id number] Age/Sex: 65 / F Type: REG RCR Copies to: Vero Pandya MD SELF,REFERRAL ~ Subjective Date/Time of Service: Date of Service: 12/04/2020 Time of Service: 13:30 Chief Complaint: Patient is here today for 6 week follow up for Iron Deficiency Anemia. She is here to go over lab work. No new concerns HPI: Kaveh presents in follow-up today December 03, 2020. His iron. Her ferritin is normal. We did order CBC but somehow this got canceled. She feels fine and is going to [place]. She will follow-up with me in July. This is a very nice lady very well-known to me currently 65 years old with a history of achalasia and iron deficiency anemia. She has required IV iron treatments in the past. At [facility] when I was there we gave her IV iron 2016, 2017,May 2019 and more recently April 2020 down in [place]. She had microcytic anemia consistent with iron deficiency down to [place] this April and was given IV iron treatments. She is presenting in follow-up today October 18, 2020. She is not having ice craving. No exertional dyspnea. She does get fatigue. [facility] - Medical History Medical History: Medical History (Last Reviewed 10/18/20 @ 13:00 by Marva August) Achalasia - Surgical History Surgical History: Surgical History (Last Updated 10/18/20 @ 13:10 by Marva August) H/O tubal ligation History of vein stripping Hx of cholecystectomy - Family History Family History: Family History (Last Updated 10/18/20 @ 13:01 by Marva August) Grandparent Diabetes - Social History Smoking Status: Former smoker Substance Use Type: None Home Medications & Allergies Allergies No Known Allergies Allergy (Verified 12/04/20 12:58) Home Medications esomeprazole magnesium 20 mg capsule,delayed release (Nexium) 20 mg PO DAILY 10/18/20 [History Confirmed 12/04/20] Objective - Height/Weight Height/Weight: Height 5 ft 9 in Weight 89.811 kg - Vital Signs Vital Signs: 12/04/20 12:59 Temperature 98.0 F Pulse Rate [Right Brachial] 81 Respiratory Rate 20 Blood Pressure [Right Arm] 175/97 H 02 Sat by Pulse Oximetry 100 - Emotional Needs Assessment Emotional Needs Assessment: Emotional Needs Identified? No Physical Exam Narrative: The patient is alert and oriented x3. Eyes are anicteric. Extraocular muscles are intact. Neck shows no JVD. Lungs audibly with good air exchange. Neurological exam is grossly intact. Psychiatric exam shows a normal affect. - ECOG Performance Status ECOG Score: 0 Results - Labs Labs: Diagram of Most Recent CBC and CMP 11/28/20 11:11 10/18/20 13:33 Labs - Last 7 Days 11/28/20 11:11: Iron 62, TIBC 273, Iron Saturation 22.0, Transferrin 195, Ferritin 231.8 11/28/20 11:11: Corrected WBC Cancelled, Uncorrected WBC Count Cancelled, RBC Cancelled, Hgb Cancelled, Hct Cancelled, MCV Cancelled, MCH Cancelled, MCHC Cancelled, RDW Cancelled, Plt Count Cancelled, MPV Cancelled, Neut % (Auto) Cancelled, Lymph % (Auto) Cancelled, [place] % (Auto) Cancelled, Eos % (Auto) Cancelled, Baso % (Auto) Cancelled, Neut # (Auto) Cancelled, Lymph # (Auto) Cancelled, [place] # (Auto) Cancelled, Eos # (Auto) Cancelled, Baso # (Auto) Cancelled, Nucleated RBC % (auto) Cancelled Assessment and Plan (1) Iron deficiency anemia Status post IV iron x2. Repeat ferritin is normal. She feels fine. CBC got canceled. Instructions given to seek medical attention down in [place] if she experiences any new or progressive fatigue. Follow-up with me in July 2021. - Time with Patient Coordination of Care & Counseling Time: Greater than 50% of time spent with patient was for coordination of care (as documented) and [id number] counseling of patient and/or family. Dictated By: Cameron Mclaughlin MD DD/ 29 Signed By: <Electronically signed by MD Cameron Mclaughlin> 12/04/201331 [facility] Work Phone: Progress note 10-18-2020 Note Date & Type Note Facility 10-18-2020 Progress note Note Date/Time October 18, 2020 1:21pm [facility] [place] [address] Hem/Onc Follow Up Note - OP Signed with Addenda Patient: Kaveh Theodore MR#: [id number] : 1955 Acct:[id number] Age/Sex: 65 / F Type: REG RCR Copies to: Vero Pandya MD SELF,REFERRAL ~ ADDENDUM1 The patient was found to have a normal hemoglobin but her ferritin was low consistent with iron deficiency. The patient has fatigue and malaise. I calledher this afternoon at 4 PM October 18 and reviewed results with her. She will comeback next week for Injectafer x2. I will then see her in November for CBC and iron studies prior to her going to [place]. -JF Addendum Dictated By: MD Cameron Mclaughlin Addendum Signed By: 10/18/201600 Addendum Cosigned By: DD/ TD/TT: 10/18/20 Subjective Date/Time of Service: Date of Service: 10/18/2020 Time of Service: 13:19 Chief Complaint: Patient is transferring care from [facility] and the [facility] in [place], [place] for iron deficiency. Patient states that she has been more tired than usual. No other concerns. HPI: This is a very nice lady very well-known to me currently 65 years old with a history of achalasia and iron deficiency anemia. She has required IV iron treatments in the past. At [facility] when I was there we gave her IV iron 2016, 2017,May 2019 and more recently April 2020 down in [place]. She had microcytic anemia consistent with iron deficiency down to [place] this April and was given IV iron treatments. She is presenting in follow-up today October 18, 2020. She is not having ice craving. No exertional dyspnea. She does get fatigue. She will be going back to [place] in November. We will check her labs today. [facility] - Medical History Medical History: Medical History (Last Reviewed 10/18/20 @ 13:00 by Marva August) Achalasia - Surgical History Surgical History: Surgical History (Last Updated 10/18/20 @ 13:10 by Marva August) H/O tubal ligation History of vein stripping Hx of cholecystectomy - Family History Family History: Family History (Last Updated 10/18/20 @ 13:01 by Marva August) Grandparent Diabetes - Social History Smoking Status: Former smoker Substance Use Type: None Home Medications & Allergies Allergies No Known Allergies Allergy (Verified 10/18/20 12:56) Home Medications esomeprazole magnesium 20 mg capsule,delayed release (Nexium) 20 mg PO DAILY 10/18/20 [History Confirmed 10/18/20] Objective - Height/Weight Height/Weight: Height 5 ft 9 in Weight 90.673 kg - Vital Signs Vital Signs: 10/18/20 13:06 Temperature 98 F Pulse Rate [Right Brachial] 89 Respiratory Rate 20 Blood Pressure [Right Arm] 162/98 H 02 Sat by Pulse Oximetry 100 - Emotional Needs Assessment Emotional Needs Assessment: Emotional Needs Identified? No Physical Exam Narrative: The patient is alert and oriented x3. Eyes are anicteric. Extraocular muscles are intact. Neck shows no JVD. Lungs audibly with good air exchange. Neurological exam is grossly intact. Psychiatric exam shows a normal affect. - ECOG Performance Status ECOG Score: 0 Assessment and Plan (1) Iron deficiency anemia She is 65 and has a history of achalasia and has required intravenous iron in the past. More recently she was treated in [place] in April 2020 with IV iron. At this time we will check a CBC and iron studies. If these are abnormal I willcall her and have her come in for IV iron. If these are normal I will see her in early November prior to her going down [facility]. We will check CBC and iron studies on the day. - Time with Patient Coordination of Care & Counseling Time: Greater than 50% of time spent with patient was for coordination of care (as documented) and [id number] counseling of patient and/or family. Dictated By: Cameron Mclaughlin MD DD/ 1319 Signed By: <Electronically signed by MD Cameron Mclaughlin> 10/18/20 1323 [facility] Work Phone: Evaluation note Note Date & Type Note Facility Evaluation note Diagnosis Onset Date Iron deficiency anemia acute [facility] Work Phone: Evaluation note Note Date & Type Note Facility Evaluation note No Information [facility] [employer] Other Progress note Note Date & Type Note Facility Progress note Note Date/Time March 07, 2022 11:50[facility] [place] [id number] Hem/Onc Follow Up Note - OP Signed Patient: Kaveh Theodore MR#: [id number] : 1955 Acct:[id number] Age/Sex: 66 / F Type: REG RCR Copies to: Vero Pandya MD SELF,REFERRAL ~ Date of Service: 03/07/2022 Time of Service: 11:49 - Assessment & Plan (1) Iron deficiency anemia Plan: 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 poorly tolerates oral iron. seems to require iv iron about once a year. known achalasia. last scope [place] dec [address] Stephens. they go to [place] in the fall. She will again get IV iron repletion in october 2021. by january, she already has a low iron saturation. ferritin is normal. she is going to [place] after mar 30 2022, she has agreed to gi evaluation shwn she retuns in july. She previously saw dr foster. we discussed her fears with colonoscopy and potential alternatives, sigmoidoscopy, ct colonography, cologuard etc. will defer to GI. Follow Up Instructions: get records from [facility] EGD, and path. get vist scheduled wit GI in july/august. f/u with me or community educator afterwards cbc, cmp, iron studies prior to f/u . - History of Present Illness Chief Complaint: Patient is here for a 4 month follow up with labs for review. No concerns voiced at this time. 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 She has required IV iron treatments in the past. At [facility] Dr. Mclaughlin gave her IV iron 2016, 2017, May 2019 and more recently April 2020 down in [place]. She had microcytic anemia consistent with iron deficiency down to [place] this April and was given IV iron treatments. She is presenting in follow-up today October 18, 2020. She is not having ice craving. No exertional dyspnea. She does get fatigue. 11/01/21 she does not tolerate iron well at all. She does not have regular scopes for her achalasia. She requires iron yearly. she does take a supplement with low dose iron in it. She is not yet eating ice. 03/07/22 she is doing well overall. she has not ever had a colonoscopy. She has no desire to get one she is scared. she got iv iron again in october and again her iron is a bit low. She was vomiting prior to hospitalization. she spent a night in hospital two weeks ago, she felt very bad, she got IV fluids and EGD. discharged next day. she had repeat EGD with Dr. Stephens two weeks ago at [place], found no concerns. had a lower GI xray was normal. esophageal biopsy was performed but no results have been told to the patient. - Physical Exam The patient is alert and oriented x3. Eyes are anicteric. Extraocular muscles are intact. Neck shows no JVD. Lungs audibly with good air exchange. Neurological exam is grossly intact. Psychiatric exam shows a normal affect. - Time with Patient Coordination of Care & Counseling Time: Greater than 50% of time spent with patient was for coordination of care (as documented) and [id number] counseling of patient and/or family. [facility] - Medical History Medical History: Medical History (Last Reviewed 10/18/20 @ 13:00 by Marva August) Achalasia - Surgical History Surgical History: Surgical History (Last Updated 10/18/20 @ 13:10 by Marva August) H/O tubal ligation History of vein stripping Hx of cholecystectomy - Family History Family History: Family History (Last Updated 07/22/21 @ 13:01 by Marva August) Grandparent Diabetes - Social History Smoking Status: Former smoker Substance Use Type: None Additional Data - Additional Objective Data Height/Weight: Height 5 ft 9 in Weight 91.5 kg Vital Signs: 03/07/22 11:26 Temperature 98 F Pulse Rate [Right Brachial] 89 Respiratory Rate 18 Blood Pressure [Right Arm] 163/100 H 02 Sat by Pulse Oximetry 100 Oxygen Delivery Method Room Air - Lab Results Diagram of Most Recent CBC and CMP 03/04/22 11:53 03/04/22 11:53 Labs - Last 7 Days 03/04/22 11:53: PHA Creatinine Clear 85.53, Sodium 139, Potassium 5.0, Chloride 104, Carbon Dioxide 28.4, Anion Gap 11.6, BUN 15, Creatinine 0.72, Est GFR ( Amer) > 60, Est GFR (Non-Af Amer) > 60, Glucose 100, Calcium 9.9, Iron 40, TIBC 272, Iron Saturation 14.0 L, Transferrin 194, Ferritin 90.9, Total Bilirubin 0.4, AST 15, ALT 13, Alkaline Phosphatase 77, Total Protein 6.7, Albumin 3.6, Globulin 3.1, Albumin/Globulin Ratio 1.2, Vitamin B12 214, Folate 7.6 03/04/22 11:53: Corrected WBC 4.6, Uncorrected WBC Count 4.6, RBC 5.03 H, Hgb 14.1, Hct 44.0, MCV 87.4, MCH 28.1, MCHC 32.1, RDW 13.9, Plt Count 257, MPV 9.1,Neut % (Auto) 62.1, Lymph % (Auto) 25.1, [place] % (Auto) 7.5, Eos % (Auto) 4.2, Baso % (Auto) 1.1, Nucleat RBC Rel Count 0.1, Neut # (Auto) 2.9, Lymph # (Auto) 1.2, [place] # (Auto) 0.3, Eos # (Auto) 0.2, Baso # (Auto) 0.1 - Home Medications and Allergies Allergies/Adverse Reactions: Allergies No Known Allergies Allergy (Verified 03/07/22 11:25) Home Medications: Home Medications esomeprazole magnesium 20 mg capsule,delayed release (Nexium) 20 mg PO DAILY 10/18/20 [History Confirmed 03/07/22] Dictated By: Dallas Singletary II, DO DD/ 1149 Signed By: <Electronically signed by Dallas Singletary II, DO> 03/07/22 1200 [facility] Work Phone: Summary Purpose Family History No Family History Records Found Relationship Condition Age at Onset Recorded Date/T ousmane grandparent Diabetes mellitus Unknown Advance Directives No Advanced Directives Records Found Advance Directive Response Recorded Date/ Time Advance Directives No October 18 12:48pm Advance Directive Response Recorded Date/ Time Advance Directives No October 18 1:48pm Chief Complaint and Reason for Visit Chief Complaint Anemia Reason for Visit Iron deficiency anem ia Chief Complaint Amb Documentation Anemia Reason for Visit Iron deficiency anem ia Additional Source Comments INFORMATION SOURCE (unrecogn ized section and content) DATE CREATED AUTHOR 04/21/2021 [facility] DATE CREATED AUTHOR AUTHOR'S ORGANIZ ATION 03/01/2022 [facility] DATE CREATED AUTHOR AUTHOR'S ORGANIZ ATION 09/09/2023 [facility] Care Teams (unrecognized sec tion and content) Team Status: Active Member Role Status Dates Vero Pandya MD Primary Care Provider Active Team Status: Active Member Role Status Joni Pandya MD Primary Care Provider Active Cameron Mclaughlin MD Active Referral Self Referring Provider Active Dallas Singletary II, DO Attending Provider Active Team Status: Active Member Role Status Dates Vero Pandya MD Primary Care Provider Active Start: July 15, 2023 Yaritza Ken LPN Attending Provider Active S tart: July 15, 2023 Team Status: Active Member Role Status Dates Vero Pandya MD Primary Care Provider Active Start: August 21, 2023 Cameron Mclaughlin MD Active Start: Aleksander vergara 2023 Referral Self Referring Provider Active Start: Reece ferguson 2023 Dallas Singletary II, DO Attending Provider Active Start: August 21, 2023 Team Status: Inactive Member Role Status Dates Vero Pandya MD Primary Care Provider Active Start: August 21, 2023 End: August 21, 2023 Cherise Jenkins APRN Attending Provider Acti ve Start: August 21, 2023 End: August 21, 2023 Goals (unrecognized section and content) Goals may be documented in a n alternate sectionNo InformationGoals may be documented in an alternate sectionNo InformationGoals may be documented in an alternate section REASON FOR VISIT (unrecogniz ed section and content) PATIENT IS HERE FOR IRON DEF ANEMIA AND ACHALASIAPOSTING SHEET FOR RECORDS PERTAINING TO PATIENTS WHO ARE OR HAVE BEEN ENROLLED IN A CHEMICAL DEPENDENCY/SUBSTANCEABUSE PROGRAM, SOME INFORMATION MAY BE OMITTED. This clinical summary was aggregated from multiple sources. Caution should be exercised in using it in the provision of clinical care. This summary normalizes information from multiple sources, and as a consequence, information in this document may materially change the coding, format and clinical context of patient data. In addition, data may be omitted in some cases. CLINICAL DECISIONS SHOULD BE BASED ON THE PRIMARY CLINICAL RECORDS. [facility] [facility]. provides no warranty or guarantee of the accuracy or completeness of information in this document.
[2023-09-09 08:48] LABS: Bilirubin Urine NEGATIVE (NEGATIVE); Blood Urine SMALL (NEGATIVE); Clarity Urine CLOUDY (CLEAR); Color Urine LT. YELLOW (YELLOW); Glucose Urine UA NEGATIVE (NEGATIVE); Ketones Urine NEGATIVE (NEGATIVE); Leukocyte Esterase Urine MODERATE (NEGATIVE); Nitrite Urine POSITIVE (NEGATIVE); Protein Urine NEGATIVE (NEG/TRACE); Specific Gravity Urine >=1.030 (1.005-1.025); Urobilinogen Urine 0.2 EU/dL (0.2-1.0)
== END 2023-09-09 08:01 | disposition home or self-care (01) ==
PROVIDERS: PCP Family Medicine; Visit Provider Family Medicine
DX: R82.90 Unspecified abnormal findings in urine (principal)
CPT/HCPCS: 81003; 87086

== ENCOUNTER 2024-08-11 14:46 | Outpatient (OUT) | payer MEDICARE, OTHER, SELFPAY ==
[2024-08-11 15:15] LABS: Bilirubin Urine NEGATIVE (NEGATIVE); Blood Urine MODERATE (NEGATIVE); Clarity Urine CLEAR (CLEAR); Color Urine LT. YELLOW (YELLOW); Glucose Urine UA NEGATIVE (NEGATIVE); Ketones Urine NEGATIVE (NEGATIVE); Leukocyte Esterase Urine LARGE (NEGATIVE); Nitrite Urine NEGATIVE (NEGATIVE); Protein Urine 30 mg/dL (NEG/TRACE); Specific Gravity Urine 1.025 (1.005-1.025); Urobilinogen Urine 0.2 EU/dL (0.2-1.0)
[2024-08-11 15:43] LABS: Alanine Aminotransferase 12 U/L (14-59); Albumin Globulin Ratio 0.8; Albumin Level 3.2 g/dL (3.4-5.0); Alkaline Phosphatase 101 U/L (46-116); Anion Gap 10.4; Aspartate Amino Transferase 11 U/L (15-37); BUN Creatinine Ratio 18.6; Bilirubin Total 0.2 mg/dL (0.2-1.0); Calcium 9.3 mg/dL (8.5-10.1); Carbon Dioxide 29.6 mmol/L (21.0-32.0); Chloride 105 mmol/L (98-107); Estimated GFR (African America >60 (>=60 mL/min/1.73m^2); Estimated GFR (Non-African Ame >60 (>=60 mL/min/1.73m^2); Globulin 4.1 g/dL; Glucose 84 mg/dL (74-106); Sodium 141 mmol/L (136-145); Total Protein 7.3 g/dL (6.4-8.2)
[2024-08-11 15:50] LABS: Percent Iron Saturation 8.8 %
== END 2024-08-11 14:47 | disposition home or self-care (01) ==
LOC: LAB 14:51
PROVIDERS: PCP Family Medicine; Visit Provider Family Medicine
DX: E86.0 Dehydration (principal); R82.90 Unspecified abnormal findings in urine; D50.9 Iron deficiency anemia, unspecified; I10 Essential (primary) hypertension
CPT/HCPCS: 36415; 80053; 81003; 82728; 83540; 83550; 87086; 87088

== ENCOUNTER 2025-02-11 08:55 | Outpatient (OUT) | payer MEDICARE, OTHER, SELFPAY ==
--- OUTSIDE RECORDS SUMMARY | 2025-02-11 08:59 | XMS_ITS | CCD ---
Author Organization [facility] Inform ion Partnership [facility] Care Team Providers Care Detail Maker And Fitter Name Role Phone YA, DR VERO Vasquez Primary Care Unavailable BREANNE, DR KEYSHAWN Vasquez Consulting Unavailjavi QUINONES, DR DILIP Davis Attending Unavailable JONI, DR DILIP Davis Admitting Unavailable AYAKA, DR CHEN Childress Consulting Unavailable ZIEBJUDSON, DR BARB Saucedo Consulting Unavailable JONI, DR DILIP Davis Consulting Unavailable HAY, DR NORRIS Consulting Unavailable VIDAL, SANDY Consulting Unavailable GEMBUS, NAIMA Consulting Unavailable YA, DR VEOR Vasquez Consulting Unavailable YA, DR VERO Vasquez Primary Care Unavailable YA, DR VERO Vasquez Admitting Unavailable YA, DR VERO Vasquez Attending Unavailable PANDYA, DR VERO Vasquez Admitting Unavailable PANDYA, DR VERO Vasquez Attending Unavailable YA, DR VERO Vasquez Consulting Unavailable MD Vero Pandya Primary Care Provider Self, Referral Referring Provider Unavailable DO Dallas Singletary II Attending Provider Asaad, Imad Unavailable MD Vero Pandya Primary Care Provider Self, Referral Referring Provider Unavailable DO Dallas Singletary II Attending Provider [phone] MD Vero Pandya Primary Care Provider [phone] Self, Referral Referring Provider Unavailable DO Dallas Singletary II Attending Provider MD Vero Pandya Primary Care Provider [phone] Self, Referral Referring Provider Unavailable SANDY Jenkins Attending Provider Unavailable Primary Care Provider UnavailVero Wild MD Attending Provider Vero Pandya MD Primary Care Provider [phone] Self, Referral Referring Provider Unavailable Cherise Jenkins APRN Attending Provider Rick Torres MD Attending Provider Vero Pandya MD Primary Care Provider Vero Pandya MD Attending Provider Liyah Gar Attending Provider Rick Torres MD Attending Provider Self, Referral Referring Provider Unavailable Vero Pandya Admitting Unavailable Vero Pandya Attending Unavailable Vero Pandya Primary Care Unavailable Rick Torres II Admitting UnavailRick Funez II Attending UnavailVero Wild Primary Care Unavailable Liyah Puri Admitting Unavailable Liyah Puri Attending Unavailable Self, Referral Referring Unavailable Medications Current Medications MedicationDrug Class(es)DatesSig (Normalized)Sig (Original)pantoprazole 40 mg delayed release oral tablet (20 sources)Proton Pump InhibitorStart: 10-07-2023 End: 85-62-9994Pkszc: 77-88-3763Ohbtgvhitekk Active 0 .ROUTE .COMPLEX 180 October 07, 2023 1:32pm TAKE 1 TABLET TWICE A DAYStart: 07-15-2023 End: 57-51-9525zkfd 1 tablet by mouth twice dailyPantoprazole 40 mg tablet,delayed release (DR/EC) Discontinued 40 MG PO Twice daily 180 July 16, 2023 2:16pm October 07, 2023 1:32pmStart: 09-05-2022 End: 63-99-0228ijvx 1 tablet by mouth once dailyPantoprazole 40 mg Tablet,Delayed Release (Dr/Ec) Discontinued 40 MG PO Daily September 05, 2022 12:00am July 15, 2023 4:30pmStart: 40-12-4276dtst 1 tablet by mouth twice dailypantoprazole 40mg pantoprazole 40mg, 1 Tablet two times daily # 0, 03/18/2022, No Refill. Active oral two times daily for 0 *Reorder from [employer] for eRx and Interaction Alerts* Feb, ActivePantoprazole 40 mg tablet,delayed release (DR/EC) (4 sources)Start: 14-14-1810Uzonsgndfjtv 40 mg tablet,delayed release (DR/EC) Active 0 .ROUTE .COMPLEX 180 October 07, 2023 1:32pm TAKE 1 TABLET TWICE A DAY Completed/Discontinued Medications MedicationDrug Class(es)DatesSig (Normalized)Sig (Original)amitriptyline hydrochloride 10 mg oral tablet (10 sources)Tricyclic AntidepressantStart: 10-16-2020 End: 93-02-4707kayw 1 tablet by mouth once daily at bedtimeAmitriptyline 10 mg Tablet Discontinued 10 MG PO Daily at bedtime October 16, 2020 12:00am October 18, 2020 12:56pmesomeprazole 20 mg delayed release oral capsule (20 sources)Proton Pump InhibitorStart: 10-18-2020 End: 56-73-1393cnml 1 capsule by mouth once dailyEsomeprazole Magnesium (Nexium) 20 mg Capsule,Delayed Release(Dr/Ec) Discontinued 20 MG PO Daily October 18, 2020 12:00am September 05, 2022 11:07am pt only takes when neededStart: 10-16-2020 End: 08-59-8983aubq 1 capsule by mouth once dailyEsomeprazole Magnesium 40 mg Capsule,Delayed Release(Dr/Ec) Discontinued 40 MG PO Daily October 16, 2020 12:00am October 18, 2020 12:56pm24 hr metoprolol succinate 25 mg extended release oral tablet (10 sources)beta-Adrenergic BlockerStart: 10-16-2020 End: 87-19-2396yxqp 1 tablet by mouth twice dailyMetoprolol Succinate 25 mg Tablet Extended Release 24 Hr Discontinued 25 MG PO Twice daily October 16, 2020 12:00am October 18, 2020 12:56pmsulfamethoxazole 800 mg / trimethoprim 160 mg oral tablet (5 sources)Dihydrofolate Reductase Inhibitor Antibacterial, Sulfonamide AntimicrobialStart: 08-11-2024 End: 64-64-3778afnz 1 tablet by mouth twice dailySulfamethoxazole-Trimethoprim 800-160 mg tablet Discontinued 1 TAB PO Twice daily August 112:00am August 23, 2024 1:24pm Problems Active Problems Problem ClassificationProblemDateDocumented DateEpisodic/ChronicCoronary atherosclerosis and other heart disease (1 source)Atherosclerotic heart disease of [place] coronary artery without angina pectoris; Translations: [ASHD [place] W/O ANGINA PECTORIS]Onset: 02-28-2022 ChronicDeficiency and other anemia (2 sources)Anemia due to chronic blood loss; Translations: [Iron deficiency anemia secondary to blood loss (chronic)]ChronicDeficiency and other anemia (20 sources)Iron deficiency anemia, unspecified; Translations: [Iron deficiency anemia, unspecified]Onset: 12-02-5890BlddfocwAcphkrbhrg and other anemia (18 sources)Iron deficiency anemia; Translations: [Iron deficiency anemia, unspecified]70-17-6616OmsnwocmVncdidgiv of lipid metabolism (3 sources)Mixed hyperlipidemia; Translations: [Hyperlipidemia]Onset: 05-19-2016 ChronicEsophageal disorders (20 sources)Achalasia of cardia; Translations: [Achalasia of esophagus]Onset: 02-03-8266DonpespzGewnusekr hypertension (8 sources)Essential (primary) hypertension; Translations: [Essential hypertension]Onset: 014745-08-3678GasuynmInnzr and electrolyte disorders (11 sources)Dehydration; Translations: [Dehydration]Onset: EpisodicGenitourinary symptoms and ill-defined conditions (16 sources)Frequency of micturition; Translations: [Finding of frequency of urination]Onset: 991733-46-1401UnhaueeqDufwvd and vomiting (4 sources)Nausea with vomiting, unspecified; Translations: [NAUSEA WITH VOMITING UNSPECIFIED]Onset: 18-66-7254BigkwxfqJatqu and unspecified benign neoplasm (1 source)Polyp of stomach and duodenum; Translations: [POLYP OF STOMACH AND DUODENUM]Onset: 28-07-6242LqoijcxeTabky circulatory disease (2 sources)Elevated blood-pressure reading without diagnosis of hypertension; Translations: [Elevated blood-pressure reading, without diagnosis of hypertension]EpisodicOther nutritional; endocrine; and metabolic disorders (1 source)Obesity, unspecified; Translations: [OBESITY UNSPECIFIED]Onset: 18-97-7538DtphmkuOqebr nutritional; endocrine; and metabolic disorders (2 sources)Simple obesity ; Translations: [Other obesity due to excess calories] Onset: 62-99-4278MakjnfeJnzwx nutritional; endocrine; and metabolic disorders (2 sources)Obesity; Translations: [Obesity, unspecified]Onset: 00-74-1458Fhdtgri Other nutritional; endocrine; and metabolic disorders (2 sources)Obese class I; Translations: [Body mass index (BMI) 31.0-31.9, adult] ChronicOther nutritional; endocrine; and metabolic disorders (2 sources)Body mass index 30+ - obesity; Translations: [Body mass index (BMI) 30.0-30.9, adult]ChronicOther nutritional; endocrine; and metabolic disorders (1 source)Body mass index (BMI) 29.0-29.9, adult; Translations: [BODY MASS INDEX BMI 29.0-29.9 ADULT]Onset: 75-28-9001CmxnigjkWaohh screening for suspected conditions (not mental disorders or infectious disease) (2 sources)Decreased vitamin B12 level; Translations: [Other specified abnormal findings of blood chemistry]60-90-0448HfhiacvdKbeivfnr codes; unclassified (1 source)Acquired absence of other specified parts of digestive tract; Translations: [ACQ ABSENCE OTH PART DIGESTV TRACT]Onset: 07-07-3797Dwsdglrw Screening and history of mental health and substance abuse codes (1 source)Personal history of nicotine dependence; Translations: [PERSONAL HISTORY OF NICOTINE DEPEND]Onset: 26-64-7175KvruzqhqVutifjsomphc (1 source)GASTR-ESOPH RFLX DS ESPHGTS W/O BLD; Translations: [GASTR-ESOPH RFLX DS ESPHGTS W/O BLD]Onset: 32-08-0993Wcsifwnjltwn (1 source)CONTACT W/AND (SUSP) EXPOS COVID-19; Translations: [CONTACT W/AND (SUSP) EXPOS COVID-19]Onset: 84-51-6954Uznoeut tract infections (15 sources)Urinary tract infection, site not specified; Translations: [Urinary tract infectious disease]Onset: 89-78-6586[place] Past or Other Problems Problem ClassificationProblemDateDocumented DateEpisodic/ChronicAbdominal pain (2 sources)Epigastric pain; Translations: [Epigastric pain]Onset: 05-19-2016 EpisodicDeficiency and other anemia (2 sources)Anemia; Translations: [Anemia, unspecified]Onset: 18-54-6783Zqtcmtwu Malaise and fatigue (2 sources)Fatigue; Translations: [Other fatigue]Onset: 71-37-5119AflureazMooql gastrointestinal disorders (2 sources)Pharyngeal dysphagia; Translations: [Dysphagia, pharyngoesophageal phase]Onset: 66-85-0622SogvihcjVlkjj non-traumatic joint disorders (11 sources)Pain in right knee; Translations: [Chronic pain of right knee]Onset: 249782-74-5679NjrpndsnHgnux upper respiratory infections (2 sources)Acute sinusitis; Translations: [Acute sinusitis, unspecified]Onset: 36-01-9367VesgneyyTeflorikgb disorders (not diabetes) (2 sources)Acute pancreatitis; Translations: [Acute pancreatitis without necrosis or infection, unspecified]Onset: 46-41-2494Dtxxldap Results Test NameValueInterpretationReference RangeFacilityComplete Blood Count Auto Diffon 34-35-7863Vxrvvufuz (Bld) [#/Vol]0.0 10*3/uLNormal0.0-0.2The [facility] Physician GroupComment on above:Result Comment: PERFORMED BY: [place] [address] PATHOLOGIST GLASS DRILLER MATT MCKEON M.D.Performed By: #### KENDAL, FE and TIBC, CMP, CBC #### [facility] [address] [place] [address] USABasophils/100 WBC (Bld)0.7 %Normal.The [facility] Physician GroupComment on above:Performed By: #### KENDAL, FE and TIBC, CMP, CBC #### [facility] [address] [place] [address] USAEosinophils (Bld) [#/Vol]0.2 10*3/uLNormal0.0-0.45The [facility] Physician GroupComment on above:Performed By: #### KENDAL, FE and TIBC, CMP, CBC #### [facility] [address] [place] [address] USAEosinophils/100 WBC (Bld)3.3 %Normal.The [facility] Physician GroupComment on above:Performed By: #### KENDAL, FE and TIBC, CMP, CBC #### [place] [address] USAErythrocyte distribution width (RBC) [Ratio]16.4 %High 11.9-15.3The [facility] Physician GroupComment on above:Performed By: #### KENDAL, FE and TIBC, CMP, CBC #### [place] [address] USAHematocrit (Bld) [Volume fraction]32.2 %Low34.0-46.4The [facility] Physician GroupComment on above:Performed By: #### KENDAL, FE and TIBC, CMP, CBC #### [place] [address] USAHemoglobin (Bld) [Mass/Vol]10.2 g/dLLow11.8-15.4The [facility] Physician GroupComment on above:Performed By: #### KENDAL, FE and TIBC, CMP, CBC #### [place] [address] USALymphocytes (Bld) [#/Vol]1.1 10*3/uLNormal1.00-4.8The [facility] Physician GroupComment on above:Performed By: #### KENDAL, FE and TIBC, CMP, CBC #### [place] [address] USALymphocytes/100 WBC (Bld)19.8 %Normal.The [facility] Physician GroupComment on above:Performed By: #### KENDAL, FE and TIBC, CMP, CBC #### [place] [address] USAMCH (RBC) [Entitic mass]24.1 pgLow24.7-34.3The [facility] Physician GroupComment on above:Performed By: #### KENDAL, FE and TIBC, CMP, CBC #### [place] [address] USAMCV (RBC) [Entitic vol]76.1 yDWsr20-787Aae [facility] Physician GroupComment on above:Performed By: #### KENDAL, FE and TIBC, CMP, CBC #### [place] [address] USAMean Corpuscular HGB Conc31.6 g/dLLow32.0-35.0The [facility] Physician GroupComment on above:Performed By: #### KENDAL, FE and TIBC, CMP, CBC #### [place] [address] USAMonocytes (Bld) [#/Vol]0.4 10*3/uLNormal0.0-0.8The [facility] Physician GroupComment on above:Performed By: #### KENDAL, FE and TIBC, CMP, CBC #### [place] [address] USAMonocytes/100 WBC (Bld)6.6 %Normal.The [facility] Physician GroupComment on above:Performed By: #### KENDAL, FE and TIBC, CMP, CBC #### [place] [address] USANeutrophils (Bld) [#/Vol]3.7 10*3/uLNormal1.8-7.7The [facility] Physician GroupComment on above:Performed By: #### KENDAL, FE and TIBC, CMP, CBC #### [place] [address] USANeutrophils/100 WBC (Bld)69.6 %Normal.The [facility] Physician GroupComment on above:Performed By: #### KENDAL, FE and TIBC, CMP, CBC #### [place] [address] USANRBC%0.0 /100{WBC}Normal0-0.5The [facility] Group Comment on above:Performed By: #### KEDNAL, FE and TIBC, CMP, CBC #### [place] [address] USAPlatelet mean volume (Bld) [Entitic vol]9.1 fLNormal 6.3-10.7The [facility] Physician GroupComment on above:Performed By: #### KENDAL, FE and TIBC, CMP, CBC #### [place] [address] USAPlatelets (Bld) [#/Vol]290 10*3/fOKhqyvl626-290Osb [facility] Physician GroupComment on above:Performed By: #### KENDAL, FE and TIBC, CMP, CBC #### [place] [address] USARBC (Bld) [#/Vol]4.24 10*6/uLNormal3.60-5.00The [facility] Physician GroupComment on above:Performed By: #### KENDAL, FE and TIBC, CMP, CBC #### [place] [address] USAWBC (Bld) [#/Vol]5.3 10*3/uLNormal3.8-11.6The [facility] Physician GroupComment on above:Performed By: #### KENDAL, FE and TIBC, CMP, CBC #### [place] [address] USAWhite Blood Count5.3 [CFU]/mLNormal3.8-11.6The [facility] Physician GroupComment on above:Performed By: #### KENDAL, FE and TIBC, CMP, CBC #### [place] [address] USAComprehensive Metabolic Panelon 77-74-4957Abrinuq [Mass/Vol]3.8 g/dLNormal3.5-5.7The [facility] Physician GroupComment on above: Performed By: #### KENDAL, FE and TIBC, CMP, CBC #### [place] [address] USAAlbumin/Globulin [Mass ratio]1.6 {ratio}NormalThe [facility] Physician GroupComment on above:Performed By: #### KENDAL, FE and TIBC, CMP, CBC #### [place] [address] USAALP [Catalytic activity/Vol]67 U/FZywnub93-017Xki [facility] Physician GroupComment on above:Performed By: #### KENDAL, FE and TIBC, CMP, CBC #### [place] [address] USAALT [Catalytic activity/Vol]7 U/LNormal7-52The [facility] Physician GroupComment on above:Performed By: #### KENDAL, FE and TIBC, CMP, CBC #### [place] [address] USAAnion gap [Moles/Vol]9.3 mmol/LNormal6.0-15.0The [facility] Physician GroupComment on above:Performed By: #### KENDAL, FE and TIBC, CMP, CBC #### [place] [address] USAAST [Catalytic activity/Vol]10 U/YDgi64-74Cax [facility] Physician GroupComment on above:Performed By: #### KENDAL, FE and TIBC, CMP, CBC #### [place] [address] USABilirubin [Mass/Vol]0.4 mg/dLNormal0.3-1.0The [facility] Physician GroupComment on above:Performed By: #### KENDAL, FE and TIBC, CMP, CBC #### [place] [address] USACalcium [Mass/Vol]9.9 mg/dLNormal8.6-10.3The [facility] Physician GroupComment on above:Performed By: #### KENDAL, FE and TIBC, CMP, CBC #### [place] [address] USAChloride [Moles/Vol]106 mmol/LLzqqvu95-521Ofs [facility] Physician GroupComment on above:Performed By: #### KENDAL, FE and TIBC, CMP, CBC #### [place] [address] USACO2 [Moles/Vol]27.4 mmol/NEikkye53.0-31.0The [facility] Physician GroupComment on above:Performed By: #### KENDAL, FE and TIBC, CMP, CBC #### [facility] [address] [place] [address] USACreatinine [Mass/Vol]0.65 mg/dLNormal0.60-1.20The [facility] Physician GroupComment on above:Performed By: #### KENDAL, FE and TIBC, CMP, CBC #### [facility] [address] [place] [address] USACreatinine Clr Calc Nykhdnok74.14NormNorth [facility] Physician GroupComment on above:Performed By: #### KENDAL, FE and TIBC, CMP, CBC #### [facility] [address] [place] [address] USAGFR/1.73 sq M.predicted MDRD (S/P/Bld) [Vol rate/Area] mL/min/{1.73_m2}NormalThe [facility] Physician GroupComment on above:Performed By: #### KENDAL, FE and TIBC, CMP, CBC #### [facility] [address] [place] [address] USAGlobulin (S) [Mass/Vol]2.4 g/dLNormAvita Health System Galion Hospitale [facility] Physician GroupComment on above:Performed By: #### KENDAL, FE and TIBC, CMP, CBC #### [place] [address] USAGlucose [Mass/Vol]90 mg/xOGuwvqv22-287Tmw [facility] Physician GroupComment on above:Result Comment: Random Glucose Reference Range is dependent on time and content of last meal. Glucose of more than 200 mg/dL in a nonstressed, ambulatory subject supports the diagnosis of Diabetes Mellitus. ADA recommended reference rangePerformed By: #### KENDAL, FE and TIBC, CMP, CBC #### [facility] [address] [place] [address] USAPotassium [Moles/Vol]4.7 mmol/LNormal3.5-5.1The [facility] Physician GroupComment on above:Performed By: #### KENDAL, FE and TIBC, CMP, CBC #### [facility] [address] [place] [address] USAProtein [Mass/Vol]6.2 g/dLLow6.4-8.9The [facility] Physician GroupComment on above:Performed By: #### KENDAL, FE and TIBC, CMP, CBC #### [place] [address] USASodium [Moles/Vol]138 mmol/SZkxxjd070-337Muf [facility] Physician GroupComment on above:Performed By: #### KENDAL, FE and TIBC, CMP, CBC #### [place] [address] USAUrea nitrogen [Mass/Vol]15 mg/dLNormal7-25The [facility] Physician GroupComment on above:Performed By: #### KENDAL, FE and TIBC, CMP, CBC #### [place] [address] USAFerritinon 84-68-9984Hdxiwlww [Mass/Vol]4.2 ng/mLLow 11.0-306.8The [facility] Physician GroupComment on above:Result Comment: PERFORMED BY: [place] [address] PATHOLOGIST GLASS DRILLER MATT MCKEON M.D.Performed By: #### KENDAL, FE and TIBC, CMP, CBC #### [place] [address] USAIron and TIBC Profileon 02-07-2025% Iron Saturation5.6 % Hth35-38Wpx [facility] Physician GroupComment on above:Performed By: #### KENDAL, FE and TIBC, CMP, CBC #### [place] [address] USAIron [Mass/Vol]21 ug/nRLym48-785Cph [facility] Physician GroupComment on above:Performed By: #### KENDAL, FE and TIBC, CMP, CBC #### [place] [address] USATotal Iron Binding Ksxklogz580 ug/dEWmhxld231-504Jtm [facility] Physician GroupComment on above:Performed By: #### KENDAL, FE and TIBC, CMP, CBC #### [place] [address] USATransferrin [Mass/Vol]269 mg/nPGfzhwx050-698Zio [facility] Physician GroupComment on above:Performed By: #### KENDAL, FE and TIBC, CMP, CBC #### [place] [address] USAParathyroid Hormone Intacton 65-58-9770Nchjkawxzfg Hormone Oewnrd29.7 pg/iYZjjcxc95-00Xby [facility] Physician [facility] HospitalComment on above:Result Comment: PERFORMED BY: [place] [address] PATHOLOGIST GLASS DRILLER MATT MCKEON M.D.Performed By: #### KENDAL, FE and TIBC, CMP, CBC #### [place] [address] USAAlanine aminotransferase [Enzymatic activity/volume] in Serum or PlasmaOrdered By: Liyah Puri on 44-88-1574PLG [Catalytic activity/Vol]7 U/LNormal7-52[facility] GeneralComment on above: Performed By: #### METH #### [facility] , #### CBC, KENDAL, FE and TIBC, [id number], CMP #### [facility] [address] [place] [address] USAAlbumin [Mass/volume] in Serum or Plasma by Bromocresol green (BCG) dye binding methoOrdered By: Liyah Puri on 53-18-9787Mvnztwg BCG dye [Mass/Vol]4.1 g/dL3.5-5.7FThe Christ HospitalAlkaline phosphatase [Enzymatic activity/volume] in Serum or PlasmaOrdered By: Liyah Puri on 87-66-8121TFK [Catalytic activity/Vol]75 U/XCnwsgs13-291XkdbzuuzdCleveland Clinic Akron GeneralComment on above:Performed By: #### METH #### [facility] , #### CBC, KENDAL, FE and TIBC, [id number], CMP #### [place] [address] USAAspartate aminotransferase [Enzymatic activity/volume] in Serum or PlasmaOrdered By: Liyah Puri on 86-51-8846ZAH [Catalytic activity/Vol]11 U/TQsg64-16ZedxtdswoCleveland Clinic Akron GeneralComment on above: Performed By: #### METH #### [facility] , #### CBC, KENDAL, FE and TIBC, [id number], CMP #### [facility] [address] [place] [address] USABasophils [#/volume] in Blood by Automated countOrdered By: Liyah Puri on 14-86-1988Tyubqjtgy (Bld) [#/Vol]0.1 10*3/uLNormal0.0-0.2 [facility] GeneralComment on above:Result Comment: PERFORMED BY: [place] [address] PATHOLOGIST GLASS DRILLER MATT MCKEON M.D.Performed By: #### METH #### [facility] , #### CBC, KENDAL, FE and TIBC, [id number], CMP #### [place] [address] USABasophils/100 leukocytes in Blood by Automated count Ordered By: Liyah Puri on 77-32-3476Crfvifnzp/100 WBC (Bld)1.1 %Normal. [facility] GeneralComment on above:Performed By: #### METH #### [facility] , #### CBC, KENDAL, FE and TIBC, [id number], CMP #### [place] [address] USABilirubin.total [Mass/volume] in Serum or PlasmaOrdered By: Liyah Puri on 40-68-0202Feexdtmvk [Mass/Vol]0.6 mg/dLNormal0.3-1.0 [facility] GeneralComment on above:Performed By: #### METH #### [facility] , #### CBC, KENDAL, FE and TIBC, [id number], CMP #### [address] [place] [address] USACalcium [Mass/volume] in Serum or PlasmaOrdered By: Liyah Puri on 99-11-7427Lgnywkq [Mass/Vol]10.4 mg/dLHigh8.6-10.3FThe Christ HospitalComment on above:Performed By: #### METH #### [facility] , #### CBC, KENDAL, FE and TIBC, [id number], CMP #### [place] [address] USACarbon dioxide, total [Moles/volume] in Serum or Plasma Ordered By: Liyah Puri on 46-95-8540RE6 [Moles/Vol]30.9 mmol/LNormal 21.0-31.0[facility] GeneralComment on above:Performed By: #### METH #### [facility] , #### CBC, KENDAL, FE and TIBC, [id number], CMP #### [place] [address] USAChloride [Moles/volume] in Serum or PlasmaOrdered By: Liyah Puri on 63-60-8456Bxboswgt [Moles/Vol]106 mmol/AKpkbyy28-132HfloglnebCleveland Clinic Akron GeneralComment on above:Performed By: #### METH #### [facility] , #### CBC, KENDAL, FE and TIBC, [id number], CMP #### [facility] [address] [place] [address] USAComplete Blood Count Auto Diffon 18-56-4329Ijic Corpuscular HGB Conc32.9 g/tOVvnjmu96.0-35.0The [facility] Physician GroupComment on above:Performed By: #### METH #### [facility] , #### CBC, KENDAL, FE and TIBC, [id number], CMP #### [facility] [address] [place] [address] USANRBC%0.3 /100{WBC}Normal0-0.5The [facility]ician Group Comment on above:Performed By: #### METH #### [facility] , #### CBC, KENDAL, FE and TIBC, [id number], CMP #### [facility] [address] [place] [address] USAWhite Blood Count5.8 [CFU]/mLNormal3.8-11.6The [facility] Physician GroupComment on above:Performed By: #### METH #### [facility] , #### CBC, KENDAL, FE and TIBC, [id number], CMP #### [facility] [address] [place] [address] USAComprehensive Metabolic Panelon 91-70-8746Acuklyy [Mass/Vol]4.1 g/dLNormal3.5-5.7The [facility] Physician GroupComment on above: Performed By: #### METH #### [facility] , #### CBC, KENDAL, FE and TIBC, [id number], CMP #### [facility] [address] [place] [address] USACreatinine Clr Calc Qwcrhtcl18.34NormalThe [facility] Physician GroupComment on above:Performed By: #### METH #### [facility] , #### CBC, KENDAL, FE and TIBC, [id number], CMP #### [facility] [address] [place] [address] USAGFR/1.73 sq M.predicted MDRD (S/P/Bld) [Vol rate/Area] mL/min/{1.73_m2}NormalThe [facility] Physician GroupComment on above:Performed By: #### METH #### [facility] , #### CBC, KENDAL, FE and TIBC, [id number], CMP #### [facility] [address] [place] [address] USACreatinine [Mass/volume] in Serum or PlasmaOrdered By: Liyah Puri on 39-49-7090Dccldtvqfb [Mass/Vol]0.62 mg/dLNormal0.60-1.20 [facility] GeneralComment on above:Performed By: #### METH #### [facility] , #### CBC, KENDAL, FE and TIBC, [id number], CMP #### [place] [address] USAEosinophils [#/volume] in Blood by Automated countOrdered By: Liyah Puri on 29-98-2609Uouwiifvxux (Bld) [#/Vol]0.2 10*3/uLNormal 0.0-0.45[facility] GeneralComment on above:Performed By: #### METH #### [facility] , #### CBC, KENDAL, FE and TIBC, [id number], CMP #### [place] [address] USAEosinophils/100 leukocytes in Blood by Automated count Ordered By: Liyah Puri on 04-75-0319Iwfhxnlgvpo/100 WBC (Bld)3.9 %Normal. [facility] GeneralComment on above:Performed By: #### METH #### [facility] , #### CBC, KENDAL, FE and TIBC, [id number], CMP #### [place] [address] USAErythrocyte distribution width [Ratio] by Automated count Ordered By: Liyah Puri on 60-50-8892Xtogxmnfumn distribution width (RBC) [Ratio]15.7 %High11.9-15.3FThe Christ HospitalComselect specialty hospital-[facility] on above: Performed By: #### METH #### [facility] , #### CBC, KENDAL, FE and TIBC, [id number], CMP #### [place] [address] USAErythrocytes [#/volume] in Blood by Automated countOrdered By: Liyah Puri on 18-83-0699PNF (Bld) [#/Vol]5.38 10*6/uLHigh3.60-5.00 [facility] GeneralComment on above:Performed By: #### METH #### [facility] , #### CBC, KENDAL, FE and TIBC, [id number], CMP #### [facility] [address] [place] [address] USAFerritin [Mass/volume] in Serum or PlasmaOrdered By: iLyah Puri on 87-38-6400Tznymtwb [Mass/Vol]10.8 ng/mLLow11.0-306.8[facility] GeneralComment on above:Performed By: #### METH #### [facility] , #### CBC, KENDAL, FE and TIBC, [id number], CMP #### [place] [address] USAFolate [Mass/volume] in Serum or PlasmaOrdered By: Liyah Puri on 73-04-8596Ojsefp [Mass/Vol]9.6 ng/mL>5.9[facility] GeneralComment on above:Folate reference range: >5.9 ng/mlThe WHO technical consultation on folate and vitamin d36hqqegbdkcbsn has determined that folate concentrations lessthan 4 ng/ml are considered deficient.Glucose [Mass/volume] in Serum or PlasmaOrdered By: Liyah Puri on 58-27-1500Rqovqbz [Mass/Vol]96 mg/zFHmatpl33-717ZisdirmvqCleveland Clinic Akron GeneralComment on above:ADA recommended reference rangeRandom Glucose Reference Range is dependent on time and content of last meal. Glucose of more than 200 mg/dL in a nonstressed, ambulatory subject supports the diagnosisof Diabetes Mellitus.Result Comment: Random Glucose Reference Range is dependent on time and content of last meal. Glucose of more than 200 mg/dL in a nonstressed, ambulatory subject supports the diagnosis of Diabetes Mellitus. ADA recommended reference rangePerformed By: #### METH #### [facility] , #### CBC, KENDAL, FE and TIBC, [id number], CMP #### [facility] [address] [place] [address] USAHematocrit [Volume Fraction] of Blood by Automated count Ordered By: Liyah Puri on 98-39-3811Xbqwgufgby (Bld) [Volume fraction]43.7 % Dyxrvh55.0-46.4FThe Christ HospitalComment on above:Performed By: #### METH #### [facility] , #### CBC, KENDAL, FE and TIBC, [id number], CMP #### [place] [id number] USAHemoglobin [Mass/volume] in BloodOrdered By: Liyah Puri on 46-23-7621Biomvbdtxc (Bld) [Mass/Vol]14.4 g/eWFgdesq17.8-15.4FThe Christ HospitalComment on above:Performed By: #### METH #### [facility] , #### CBC, KENDAL, FE and TIBC, [id number], CMP #### [place] [id number] USAIron [Mass/volume] in Serum or PlasmaOrdered By: Liyah Puri on 12-75-6925Waaq [Mass/Vol]68 ug/rFFdcmqg94-954JljlftbecCleveland Clinic Akron GeneralComment on above:Performed By: #### METH #### [facility] , #### CBC, KENDAL, FE and TIBC, [id number], CMP #### [facility] [address] [place], [place] [address] USAIron and TIBC Profileon 11-04-2024% Iron Xjlrzkgajy17.7 % Bxi29-94Fwj [facility] Physician GroupComment on above:Performed By: #### METH #### [facility] , #### CBC, KENDAL, FE and TIBC, [id number], CMP #### [facility] [address] [place], [place] [address] USATotal Iron Binding Qpyohqse670 ug/wKRmruio972-312Rtx [facility] Physician GroupComment on above:Performed By: #### METH #### [facility] , #### CBC, KENDAL, FE and TIBC, [id number], CMP #### [facility] [address] [place] [address] USALeukocytes [#/volume] corrected for nucleated erythrocytes in Blood by Automated counOrdered By: Liyah Puri on 26-50-0877JGS corrected for nucl RBC Auto (Bld) [#/Vol]5.8 10*3/uL3.8-11.6FThe Christ HospitalLeukocytes [#/volume] in Blood by Automated countOrdered By: Liyah Puri on 29-06-3486RXQ (Bld) [#/Vol]5.8 10*3/uLNormal3.8-11.6FThe Christ HospitalComment on above:Performed By: #### METH #### [facility] , #### CBC, KENDAL, FE and TIBC, [id number], CMP #### [facility] [address] [place] [address] USALymphocytes [#/volume] in Blood by Automated countOrdered By: Liyah Puri on 48-73-4898Mzxximxuexe (Bld) [#/Vol]0.9 10*3/uLLow1.00-4.8 [facility] GeneralComment on above:Performed By: #### METH #### [facility] , #### CBC, KENDAL, FE and TIBC, [id number], CMP #### [facility] [address] [place] [address] USALymphocytes/100 leukocytes in Blood by Automated count Ordered By: Liyah Puri on 77-43-6242Tvfidytsfej/100 WBC (Bld)15.6 %Normal. [facility] GeneralComment on above:Performed By: #### METH #### [facility] , #### CBC, KENDAL, FE and TIBC, [id number], CMP #### [address] [Entitic mass] by Automated countOrdered By: Liyah Puri on 56-11-0630WJZ (RBC) [Entitic mass]26.7 kdVjrmeh98.7-34.3FThe Christ HospitalComment on above:Performed By: #### METH #### [facility] , #### CBC, KENDAL, FE and TIBC, [id number], CMP #### [address] Auto (RBC) [Mass/Vol]Ordered By: Liyah Puri on 83-15-3434OOJO (RBC) [Mass/Vol]32.9 g/dL32.0-35.0[facility] GeneralMCV [Entitic volume] by Automated countOrdered By: Liyah Puri on 37-56-3964AOS (RBC) [Entitic vol]81.1 bAXltajs56-631TuotwvnxtCleveland Clinic Akron GeneralComment on above:Performed By: #### METH #### [facility] , #### CBC, KENDAL, FE and TIBC, [id number], CMP #### [place] [address] USAMethylmalonic Acidon 12-14-4587Trylzljxwkpdy Neac927Lcveyo 0-378The [facility] Physician GroupComment on above:Result Comment: This test was developed and its performance characteristics determined by [facility]. It has not been cleared or approved by the Food and Drug Administration. Performed at: [address] [id number] Assistant Front Office Manager: Lucas Hwang MD, Phone: [phone] PERFORMED BY: [place] [address] PATHOLOGIST GLASS DRILLER MATT MCKEON M.D.Performed By: #### KENDAL, FE and TIBC, CMP, CBC #### [place] [address] USAMonocytes [#/volume] in Blood by Automated countOrdered By: Liyah Puri on 05-71-7233Zggpdwhcm (Bld) [#/Vol]0.4 10*3/uLNormal0.0-0.8 [facility] GeneralComment on above:Performed By: #### METH #### [facility] , #### CBC, KENDAL, FE and TIBC, [id number], CMP #### [place] [id number] USAMonocytes/100 leukocytes in Blood by Automated count Ordered By: Liyah Puri on 10-10-8997Cygyzqldd/100 WBC (Bld)6.5 %Normal. [facility] GeneralComment on above:Performed By: #### METH #### [facility] , #### CBC, KENDAL, FE and TIBC, [id number], CMP #### [place] [address] USANeutrophils [#/volume] in Blood by Automated countOrdered By: Liyah Puri on 93-46-1821Eirnzyjrnny (Bld) [#/Vol]4.2 10*3/uLNormal 1.8-7.7FThe Christ HospitalComment on above:Performed By: #### METH #### [facility] , #### CBC, KENDAL, FE and TIBC, [id number], CMP #### [place] [id number] USANeutrophils/100 leukocytes in Blood by Automated count Ordered By: Liyah Puri on 60-43-1055Nbhgotomcmf/100 WBC (Bld)72.9 %Normal. [facility] GeneralComment on above:Performed By: #### METH #### [facility] , #### CBC, KENDAL, FE and TIBC, [id number], CMP #### [place] [id number] USANo Panel InformationOrdered By: Liyah Puri on 83-86-7065Zkqjbszcg GFR (CKD-EPI)> 60.0 mL/MinCleveland Clinic [facility] General Pharmacy Creatinine Clearance (Chem81.34[facility] Nucleated erythrocytes [Presence] in Blood by Automated countOrdered By: Liyah Puri on 62-01-3014Yoizhduha RBC Auto Ql (Bld)0.3 /100{WBC}0-0.5FThe Christ HospitalPlatelet mean volume [Entitic volume] in Blood by Automated countOrdered By: Liyah Puri on 35-16-1126Krknbinn mean volume (Bld) [Entitic vol]9.4 fLNormal6.3-10.7FThe Christ HospitalComment on above:Performed By: #### METH #### [facility] , #### CBC, KENDAL, FE and TIBC, [id number], CMP #### [facility] [address] [place] [address] USAPlatelets [#/volume] in Blood by Automated countOrdered By: Liyah Puri on 25-34-9584Hnuaoifyo (Bld) [#/Vol]230 10*3/rFYrgpcb898-904 [facility] GeneralComment on above:Performed By: #### METH #### [facility] , #### CBC, KENDAL, FE and TIBC, [id number], CMP #### [facility] [address] [place] [address] USAPotassium [Moles/volume] in Serum or PlasmaOrdered By: Liyah Puri on 98-83-6250Mthumyfcg [Moles/Vol]5.0 mmol/LNormal3.5-5.1 [facility] GeneralComment on above:Performed By: #### METH #### [facility] , #### CBC, KENDAL, FE and TIBC, [id number], CMP #### [facility] [address] [place], [place] [address] USAProtein [Mass/volume] in Serum or PlasmaOrdered By: Liyah Puri on 64-49-7228Czxzdhr [Mass/Vol]7.1 g/dLNormal6.4-8.9[facility] GeneralComment on above:Performed By: #### METH #### [facility] , #### CBC, KENDAL, FE and TIBC, [id number], CMP #### [facility] [address] [place] [address] USASerum globulin measurement by calculation (mass/volume) Ordered By: Liyah Puri on 13-28-5131Afhhrtxz (S) [Mass/Vol]3.0 g/dLNormal [facility] GeneralComment on above:Performed By: #### METH #### [facility] , #### CBC, KENDAL, FE and TIBC, [id number], CMP #### [facility] [address] [place] [address] USASerum or plasma albumin/globulin mass ratioOrdered By: Liyah Puri on 36-40-1297Ryqjsro/Globulin [Mass ratio]1.4 {ratio}Normal [facility] GeneralComment on above:Performed By: #### METH #### [facility] , #### CBC, KENDAL, FE and TIBC, [id number], CMP #### [facility] [address] [place] [address] USASerum or plasma anion gap determinationOrdered By: Liyah Puri on 88-17-1389Edqjg gap [Moles/Vol]8.1 mmol/LNormal6.0-15.0[facility] Medical Centerment on above:Performed By: #### METH #### [facility] , #### CBC, KENDAL, FE and TIBC, [id number], CMP #### [facility] [address] [place] [address] USASerum or plasma iron binding capacity measurement (mass/volume)Ordered By: Liyah Puri on 70-99-2945Dkzm binding capacity [Mass/Vol]363 ug/lA799-845ZectquhcpMercy Health St. Elizabeth Boardman Hospitalerum or plasma iron saturation measurement (mass fraction)Ordered By: Liyah Puri on 11-04-2024 Iron saturation [Mass fraction]18.7 %Hev97-03SblnixbeqCleveland Clinic [facility] General Sodium [Moles/volume] in Serum or PlasmaOrdered By: Liyah Puri on 11-04-2024 Sodium [Moles/Vol]140 mmol/RIntzot467-925UluyhikvoC[facility] Clinic [facility] General Comment on above:Performed By: #### METH #### [facility] , #### CBC, KENDAL, FE and TIBC, [id number], CMP #### [facility] [address] [place] [address] USATransferrin [Mass/volume] in Serum or PlasmaOrdered By: Liyah Puri on 55-98-3082Nbyakecxmhw [Mass/Vol]259 mg/rWRtknnc165-428 [facility] GeneralComment on above:Performed By: #### METH #### [facility] , #### CBC, KENDAL, FE and TIBC, [id number], CMP #### [facility] [address] [place] [address] USAUrea nitrogen [Mass/volume] in Serum or PlasmaOrdered By: Liyah Puri on 95-82-1372Zmum nitrogen [Mass/Vol]15 mg/dLNormal7-25[facility] GeneralComment on above:Performed By: #### METH #### [facility] , #### CBC, KENDAL, FE and TIBC, [id number], CMP #### [facility] [address] [place] [address] USAVit. B12/Folate Profileon 24-83-7007Ohwucp6.6 ng/mLNormal >5.9The [facility] Physician GroupComment on above:Result Comment: Folate reference range: >5.9 ng/ml The WHO technical consultation on folate and vitamin b12 deficiencies has determined that folate concentrations less than 4 ng/ml are considered deficient. PERFORMED BY: [place] [address] PATHOLOGIST GLASS DRILLER MATT MCKEON M.D.Performed By: #### KENDAL, FE and TIBC, CMP, CBC #### [facility] [address] [place] [address] USAVitamin B12 ser/plasOrdered By: Liyah Puri on 81-96-6317Ieleajpwx (Vitamin B12) [Mass/Vol]212 pg/rKPnxefd287-473GdiykjoqqCleveland Clinic Akron GeneralComment on above:Performed By: #### KENDAL, FE and TIBC, CMP, CBC #### [facility] [address] [place] [address] USAX-ray reportOrdered By: Tom Farmer on 69-48-9374Ttchd reportMERCY HEALTH ST. [facility] [address] [place] [id number] XRay Report Signed Patient: Kaveh Theodore MR#: [id number] : 1955 Acct:[id number] Age/Sex: 68 / F ADM Date: 5 [place] [facility] Type: [facility] Attending Dr: Rick Torres II, MD Copies to: Rick Torres MD~ Ordering Provider: Rick Torres MD Date of Service: 09/01/24 XR/XR knee RT 4V*: M25.561 - Pain in right knee ([id number]) XR/XR pelvis 1-2V: M25.561 - Pain in right knee AP PELVIS/4 VIEWS OF THE RIGHT KNEE: CLINICAL HISTORY: Right knee pain worse in flexion COMPARISON: None No fracture or malalignment. Moderate tricompartmental degenerative changes involving the right knee greatest medial compartment. Ossific spurring greatestmedial compartment. Mild ossific spurring along the superior articular surface of the patella. Small joint effusion. Khom-uv-zabwqkwa degenerative changes both hips. Sacroiliac joints are unremarkable. Remainder pelvis and hips otherwise grossly unremarkable. XR/XR pelvis 1-2V IMPRESSION: NO ACUTE BONY FINDINGS. MODERATE DEGENERATIVE CHANGES GREATEST INVOLVING THE MEDIAL COMPARTMENT OF THE RIGHT KNEE. Impression dictated by: Tom Farmer M.D. 09/01/2024 11:13 AM Dictation Location: [place] [address] Transcribed By: [facility] 09/01/24 1113 Dictated By: Tom Farmer MD 09/01/24 111 Signed By: 09/01/24 1113 [facility] Work Phone: XR knee RT 4V*on 22-45-9075RQ knee RT 4V*[facility] [address] [place] [address] XRay Report Signed Patient: Kaveh Theodore MR#: [id number] : 1955 Acct:[id number] Age/Sex: 68 / F ADM Date: 09/01/24 Loc: [facility] Room: Type: [facility] Attending Dr: Rick Torres II, MD Copies to: Rick Torres MD Ordering Provider: Rick Torres MD Date of Service: 09/01/24 XR/XR knee RT 4V*: M25.561 - Pain in right knee ([id number]) XR/XR pelvis 1-2V: M25.561 - Pain in right knee AP PELVIS/4 VIEWS OF THE RIGHT KNEE: CLINICAL HISTORY: Right knee pain worse in flexion COMPARISON: None No fracture or malalignment. Moderate tricompartmental degenerative changes involving the right knee greatest medial compartment. Ossific spurring greatest medial compartment. Mild ossific spurring along the superior articular surface of the patella. Small joint effusion. Cmuo-ed-wxxjhrpl degenerative changes both hips. Sacroiliac joints are unremarkable. Remainder pelvis and hips otherwise grossly unremarkable. XR/XR pelvis 1-2V IMPRESSION: NO ACUTE BONY FINDINGS. MODERATE DEGENERATIVE CHANGES GREATEST INVOLVING THE MEDIAL COMPARTMENT OF THE RIGHT KNEE. Impression dictated by: Tom Farmer M.D. 09/01/2024 11:13 AM Dictation Location: [place] [address] Transcribed By: [facility] 09/01/24 111 Dictated By: Tom Farmer MD 09/01/241111 Signed By: 09/01/24 [facility] Physician GroupAlanine aminotransferase [Enzymatic activity/volume] in Serum or PlasmaOrdered By: Cherise Jenkins on 29-88-1414SPI [Catalytic activity/Vol]Alanine aminotransferase [Enzymatic activity/volume] in Serum or PlasmaCleveland Clinic Akron GeneralAlbumin [Mass/volume] in Serum or Plasma by Bromocresol green (BCG) dye binding metho Ordered By: Cherise Jenkins on 80-98-2387Gaabczw BCG dye [Mass/Vol]Albumin [Mass/volume] in Serum or Plasma by Bromocresol green (BCG) dye binding metho 3.5-5.7FThe Christ HospitalAlkaline phosphatase [Enzymatic activity/volume] in Serum or PlasmaOrdered By: Cherise Jenkins on 84-55-8066FJY [Catalytic activity/Vol]Alkaline phosphatase [Enzymatic activity/volume] in Serum or Pqpbhv57-618PvdydofbrCleveland Clinic Akron GeneralAspartate aminotransferase [Enzymatic activity/volume] in Serum or PlasmaOrdered By: Cherise Jenkins on 66-82-1934EVS [Catalytic activity/Vol]Aspartate aminotransferase [Enzymatic activity/volume] in Serum or BazqbfHvv52-22TxhdmnwgpC[facility] Clinic [facility] Basophils Auto (Bld) [#/Vol]Ordered By: Cherise Jenkins on 18-41-2833Vjnxbdmaz (Bld) [#/Vol]Automated basophil count0.0-0.2FThe Christ Hospital Basophils/100 WBC Auto (Bld)Ordered By: Cherise Jenkins on 83-44-2111Wvzjfzlld/100 WBC (Bld)Automated basophil %.[facility] GeneralBilirubin.total [Mass/volume] in Serum or PlasmaOrdered By: Cherise Jenkins on 67-40-6923Woiyecmlh [Mass/Vol]Bilirubin.total [Mass/volume] in Serum or Plasma0.3-1.0[facility] GeneralCBC W Auto Differential panel (Bld)on 37-70-4968Ucxtwgpeb (Bld) [#/Vol]0 10*3/uL0.0 - 0.2 10*3/uLNOMS HealthcareBasophils/100 WBC Manual cnt (Syn fld)0.9 %.NOMS HealthcareEosinophils (Bld) [#/Vol]0.2 10*3/uL0.0 - 0.45 10*3/uLNOMS HealthcareEosinophils/100 WBC Manual cnt (Syn fld)4.1 %.NOMS HealthcareErythrocyte distribution width (RBC) [Ratio]15.1 %11.9 - 15.3 %NOMS HealthcareHematocrit (Bld) [Volume fraction]44.4 %34.0 - 46.4 %[facility] Hemoglobin (Bld) [Mass/Vol]14.5 g/dL11.8 - 15.4 g/dLMineral Area Regional Medical Center Interpretation and review of laboratory resultsAbnormLECOM Health - [facility] Lymphocytes (Bld) [#/Vol]1 10*3/uL1.00 - 4.8 10*3/uLMineral Area Regional Medical Center Lymphocytes/100 WBC Manual cnt (Syn fld)20.1 %.[facility] CenterH (RBC) [Entitic mass]26.7 pg24.7 - 34.3 pgMoberly Regional Medical CenterHC (RBC) [Mass/Vol]32.6 g/dL32.0 - 35.0 g/dLMoberly Regional Medical CenterV (RBC) [Entitic vol]82.1 fL80 - 100 fLMineral Area Regional Medical Center Monocytes (Bld) [#/Vol]0.4 10*3/uL0.0 - 0.8 10*3/uLMineral Area Regional Medical Center Monocytes+Macrophages/100 WBC Manual cnt (Syn fld)8.8 %.[facility] Neutrophils (Bld) [#/Vol]3.2 10*3/uL1.8 - 7.7 10*3/uLNONorthwest Medical Center Neutrophils/100 WBC Manual cnt (Syn fld)66.1 %.[facility] Medical CenterNRBC0.2 /100{WBC}0 - 0.5 /100{WBC}[facility] CenterPlatelet mean volume (Bld) [Entitic vol]9.3 fL6.3 - 10.7 fLMineral Area Regional Medical CenterPlatelets (Bld) [#/Vol]224 10*3/uL150 - 450 10*3/uLNONorthwest Medical CenterRBC LM.HPF (Urine sed) [#/Area]5.41 10*6/uLHigh3.60 - 5.00 10*6/uLNOMS Kettering Health SpringfieldWBC (Bld) [#/Vol]4.8 10*3/uL3.8 - 11.6 10*3/uLNOMS [facility] SpringfieldWBC LM.HPF (Urine sed) [#/Area]4.8 10*3/uL3.8 - 11.6 10*3/uLNOMS [facility] HealthcareCalcium [Mass/volume] in Serum or PlasmaOrdered By: Cherise Adrianaromel on 41-50-8133Hmvapap [Mass/Vol]Calcium [Mass/volume] in Serum or Plasma8.6-10.3 [facility] GeneralCarbon dioxide, total [Moles/volume] in Serum or PlasmaOrdered By: Cherise Wrightromel on 75-98-8133RR1 [Moles/Vol]Carbon dioxide, total [Moles/volume] in Serum or Gtetuo30.0-31.0[facility] GeneralChloride [Moles/volume] in Serum or PlasmaOrdered By: Cherise Wrightromel on 53-30-7341Maldfkiq [Moles/Vol]Chloride [Moles/volume] in Serum or Xzwwok98-622 [facility] GeneralComplete Blood Count Auto Diffon 08-25-2024 Basophils (Bld) [#/Vol]0.0 10*3/uLNormal0.0-0.2[facility] Comment on above:Result Comment: PERFORMED BY: [place] [address] PATHOLOGIST GLASS DRILLER MATT MCKEON M.D.Performed By: #### KENDAL, FE and TIBC, CMP, CBC #### [place] [address] USABasophils/100 WBC (Bld)0.9 %Normal.The [facility] Physician GroupComment on above:Performed By: #### KENDAL, FE and TIBC, CMP, CBC #### [facility] [address] [place] [address] USAEosinophils (Bld) [#/Vol]0.2 10*3/uLNormal0.0-0.45The [facility] Physician GroupComment on above:Performed By: #### KENDAL, FE and TIBC, CMP, CBC #### [place] [address] USAEosinophils/100 WBC (Bld)4.1 %Normal.The [facility] Physician GroupComment on above:Performed By: #### KENDAL, FE and TIBC, CMP, CBC #### [address] [place] [address] USAErythrocyte distribution width (RBC) [Ratio]15.1 %Normal 11.9-15.3The [facility] Physician GroupComment on above:Performed By: #### KENDAL, FE and TIBC, CMP, CBC #### [place] [address] USAHematocrit (Bld) [Volume fraction]44.4 %Erjbgg33.0-46.4The [facility] Physician GroupComment on above:Performed By: #### EKNDAL, FE and TIBC, CMP, CBC #### [place] [address] USAHemoglobin (Bld) [Mass/Vol]14.5 g/wWVidlpd98.8-15.4The [facility] Physician GroupComment on above:Performed By: #### KENDAL, FE and TIBC, CMP, CBC #### [place] [address] USALymphocytes (Bld) [#/Vol]1.0 10*3/uLNormal1.00-4.8The [facility] Physician GroupComment on above:Performed By: #### KENDAL, FE and TIBC, CMP, CBC #### [place] [address] USALymphocytes/100 WBC (Bld)20.1 %Normal.The [facility] Physician GroupComment on above:Performed By: #### KENDAL, FE and TIBC, CMP, CBC #### [place] [address] USAMCH (RBC) [Entitic mass]26.7 evQhvjvd05.7-34.3The [facility] Physician GroupComment on above:Performed By: #### KENDAL, FE and TIBC, CMP, CBC #### [place] [address] USAMCV (RBC) [Entitic vol]82.1 iNQtxrwl70-376Kxf [facility] Physician GroupComment on above:Performed By: #### KENDAL, FE and TIBC, CMP, CBC #### [place] [address] USAMean Corpuscular HGB Conc32.6 g/bTYdtomf02.0-35.0The [facility] Physician GroupComment on above:Performed By: #### KENDAL, FE and TIBC, CMP, CBC #### [place] [address] USAMonocytes (Bld) [#/Vol]0.4 10*3/uLNormal0.0-0.8The [facility] Physician GroupComment on above:Performed By: #### KENDAL, FE and TIBC, CMP, CBC #### [place] [address] USAMonocytes/100 WBC (Bld)8.8 %Normal.The [facility] Physician GroupComment on above:Performed By: #### KENDAL, FE and TIBC, CMP, CBC #### [place] [address] USANeutrophils (Bld) [#/Vol]3.2 10*3/uLNormal1.8-7.7The [facility] Physician GroupComment on above:Performed By: #### KENDAL, FE and TIBC, CMP, CBC #### [place] [address] USANeutrophils/100 WBC (Bld)66.1 %Normal.The [facility] Physician GroupComment on above:Performed By: #### KENDAL, FE and TIBC, CMP, CBC #### [place] [address] USANRBC%0.2 /100{WBC}Normal0-0.5The [facility] Comment on above:Performed By: #### KENDAL, FE and TIBC, CMP, CBC #### [place] [address] USAPlatelet mean volume (Bld) [Entitic vol]9.3 fLNormal 6.3-10.7The [facility] Physician GroupComment on above:Performed By: #### KENDAL, FE and TIBC, CMP, CBC #### [place] [address] USAPlatelets (Bld) [#/Vol]224 10*3/zTQvmmbj256-532Htw [facility] Physician GroupComment on above:Performed By: #### KENDAL, FE and TIBC, CMP, CBC #### [place] [address] USARBC (Bld) [#/Vol]5.41 10*6/uLHigh3.60-5.00The [facility] Physician GroupComment on above:Performed By: #### KENDAL, FE and TIBC, CMP, CBC #### [place] [address] USAWBC (Bld) [#/Vol]4.8 10*3/uLNormal3.8-11.6The [facility] Physician GroupComment on above:Performed By: #### KENDAL, FE and TIBC, CMP, CBC #### [place] [address] USAComprehensive Metabolic Panelon 14-29-4676Sdcruhj [Mass/Vol]4.1 g/dLNormal3.5-5.7The [facility] Physician GroupComment on above: Performed By: #### KENDAL, FE and TIBC, CMP, CBC #### [place] [address] USAAlbumin/Globulin [Mass ratio]1.4 {ratio}NormalThe [facility] Physician GroupComment on above:Performed By: #### KENDAL, FE and TIBC, CMP, CBC #### [place] [address] USAALP [Catalytic activity/Vol]77 U/TEjlugl58-189Tfn [facility] Physician GroupComment on above:Performed By: #### KENDAL, FE and TIBC, CMP, CBC #### [place] [address] USAALT [Catalytic activity/Vol]7 U/LNormal7-52The [facility] Physician GroupComment on above:Performed By: #### KENDAL, FE and TIBC, CMP, CBC #### [place] [address] USAAnion gap [Moles/Vol]8.6 mmol/LNormal6.0-15.0The [facility] Physician GroupComment on above:Performed By: #### KENDAL, FE and TIBC, CMP, CBC #### [facility] [address] [place] [address] USAAST [Catalytic activity/Vol]11 U/CWnl95-83Uvg [facility] Physician GroupComment on above:Performed By: #### KENDAL, FE and TIBC, CMP, CBC #### [facility] [address] [place] [address] USABilirubin [Mass/Vol]0.6 mg/dLNormal0.3-1.0The [facility] Physician GroupComment on above:Performed By: #### KENDAL, FE and TIBC, CMP, CBC #### [facility] [address] [place] [address] USACalcium [Mass/Vol]9.9 mg/dLNormal8.6-10.3The [facility] Physician GroupComment on above:Performed By: #### KENDAL, FE and TIBC, CMP, CBC #### [facility] [address] [place] [address] USAChloride [Moles/Vol]103 mmol/AGlmikh62-223Rao [facility] Physician GroupComment on above:Performed By: #### KENDAL, FE and TIBC, CMP, CBC #### [facility] [address] [place] [address] USACO2 [Moles/Vol]31.0 mmol/BYcinqs10.0-31.0The [facility] Physician GroupComment on above:Performed By: #### KENDAL, FE and TIBC, CMP, CBC #### [facility] [address] [place] [address] USACreatinine [Mass/Vol]0.63 mg/dLNormal0.60-1.20The [facility] Physician GroupComment on above:Performed By: #### KENDAL, FE and TIBC, CMP, CBC #### [facility] [address] [place] [address] USACreatinine Clr Calc Fxkqbwrd75.49NormalThe [facility] Physician GroupComment on above:Performed By: #### KENDAL, FE and TIBC, CMP, CBC #### [facility] [address] [place] [address] USAGFR/1.73 sq M.predicted MDRD (S/P/Bld) [Vol rate/Area] mL/min/{1.73_m2}NormalThe [facility] Physician GroupComment on above:Performed By: #### KENDAL, FE and TIBC, CMP, CBC #### [facility] [address] [place] [address] USAGlobulin (S) [Mass/Vol]3.0 g/dLAdventHealth for Women Physician GroupComment on above:Performed By: #### KENDAL, FE and TIBC, CMP, CBC #### [place] [address] USAGlucose [Mass/Vol]89 mg/oHZzazjf75-095Rss [facility] Physician GroupComment on above:Result Comment: Random Glucose Reference Range is dependent on time and content of last meal. Glucose of more than 200 mg/dL in a nonstressed, ambulatory subject supports the diagnosis of Diabetes Mellitus. ADA recommended reference rangePerformed By: #### KENDAL, FE and TIBC, CMP, CBC #### [place] [address] USAPotassium [Moles/Vol]4.6 mmol/LNormal3.5-5.1The [facility] Physician GroupComment on above:Performed By: #### KENDAL, FE and TIBC, CMP, CBC #### [facility] [address] [place] [address] USAProtein [Mass/Vol]7.1 g/dLNormal6.4-8.9The [facility] Physician GroupComment on above:Performed By: #### KENDAL, FE and TIBC, CMP, CBC #### [facility] [address] [place] [address] USASodium [Moles/Vol]138 mmol/CPrgipz118-936Wjg [facility] Physician GroupComment on above:Performed By: #### KENDAL, FE and TIBC, CMP, CBC #### [facility] [address] [place] [address] USAUrea nitrogen [Mass/Vol]18 mg/dLNormal7-25The [facility] Physician GroupComment on above:Performed By: #### KENDAL, FE and TIBC, CMP, CBC #### [facility] [address] [place] [address] USACreatinine [Mass/volume] in Serum or PlasmaOrdered By: Cherise Jenkins on 78-34-0767Qjuawdojdk [Mass/Vol]Creatinine [Mass/volume] in Serum or Plasma0.60-1.20[facility] GeneralEosinophils Auto (Bld) [#/Vol]Ordered By: Cherise Jenkins on 35-22-9843Lfzxqqxgjeq (Bld) [#/Vol]Automated eosinophil count0.0-0.45[facility] GeneralEosinophils/100 WBC Auto (Bld)Ordered By: Cherise Jenkins on 45-35-2077Iubfdqeeouw/100 WBC (Bld) Automated eosinophil %.[facility] GeneralErythrocyte distribution width Auto (RBC) [Ratio]Ordered By: Cherise Jenkins on 35-32-5413Tepzyngragp distribution width (RBC) [Ratio]Erythrocyte distribution width [Ratio] by Automated count11.9-15.3FThe Christ HospitalFerritinon 08-25-2024 Ferritin [Mass/Vol]15.6 ng/bNLvbrmj71.0-306.8The [facility] Comment on above:Result Comment: PERFORMED BY: [facility] [address] [facility] [place] [address] PATHOLOGIST GLASS DRILLER MATT MCKEON M.D.Performed By: #### KENDAL, FE and TIBC, CMP, CBC #### [facility] [address] [place] [address] USAFerritin [Mass/volume] in Serum or PlasmaOrdered By: Cherise Jenkins on 44-46-9893Edxybktb [Mass/Vol]Ferritin [Mass/volume] in Serum or Uaxyin44.0-306.8[facility] GeneralGlobulin Calc (S) [Mass/Vol] Ordered By: Cherise Jenkins on 78-53-8934Zuhdqidq (S) [Mass/Vol]Serum globulin measurement by calculation (mass/volume)[facility] GeneralGlucose [Mass/volume] in Serum or PlasmaOrdered By: Cherise Jenkins on 32-82-2268Xgcrhbj [Mass/Vol]Glucose [Mass/volume] in Serum or Jkdjgp51-111GbhbbytlwCleveland Clinic Akron GeneralComment on above:ADA recommended reference rangeRandom Glucose Reference Range is dependent on time and content of last meal. Glucose of more than 200 mg/dL in a nonstressed, ambulatory subject supports the diagnosisof Diabetes Mellitus.Hematocrit Auto (Bld) [Volume fraction]Ordered By: Cherise Jenkins on 59-80-9999Uhuudzqhnc (Bld) [Volume fraction]Hematocrit [Volume Fraction] of Blood by Automated count34.0-46.4FThe [facility] Hospital Hemoglobin [Mass/volume] in BloodOrdered By: Cherise Jenkins on 08-25-2024 Hemoglobin (Bld) [Mass/Vol]Hemoglobin [Mass/volume] in Blood11.8-15.4FThe Christ HospitalIron [Mass/volume] in Serum or PlasmaOrdered By: Cherise Jenkins on 51-49-5639Rklu [Mass/Vol]Iron [Mass/volume] in Serum or Fzecgo65-724 [facility] GeneralIron and TIBC Profileon 08-25-2024% Iron Pvfkcmcfsx41.9 %Guh08-92Bvi [facility] CenterComment on above:Performed By: #### KENDAL, FE and TIBC, CMP, CBC #### [facility] [address] [place] [address] USAIron [Mass/Vol]66 ug/xKIcrhbn20-717Afp [facility] Physician GroupComment on above:Performed By: #### KENDAL, FE and TIBC, CMP, CBC #### [facility] [address] [place] [address] USATotal Iron Binding Onptgtva866 ug/cTVhtgqe181-026Lmg [facility] GroupComment on above:Performed By: #### KENDAL, FE and TIBC, CMP, CBC #### [facility] [address] [place] [address] USATransferrin [Mass/Vol]249 mg/lRDldrrd463-201Bye [facility] Physician GroupComment on above:Performed By: #### KENDAL, FE and TIBC, CMP, CBC #### [facility] [address] [place] [address] USALeukocytes [#/volume] corrected for nucleated erythrocytes in Blood by Automated counOrdered By: Cherise Jenkins on 40-99-6641ZPG corrected for nucl RBC Auto (Bld) [#/Vol]Leukocytes [#/volume] corrected for nucleated erythrocytes in Blood by Automated coun3.8-11.6FThe [facility] Hospital Lymphocytes Auto (Bld) [#/Vol]Ordered By: Cherise Jenkins on 54-68-9595Uzaggassfue (Bld) [#/Vol]Lymphocytes [#/volume] in Blood by Automated count1.00-4.8 [facility] GeneralLymphocytes/100 WBC Auto (Bld)Ordered By: Cherise Jenkins on 14-39-6531Gzngmyhqqgm/100 WBC (Bld)Lymphocytes/100 leukocytes in Blood by Automated count.[facility] GeneralMCH Auto (RBC) [Entitic mass]Ordered By: Cherise Jenkins on 52-12-0260BHQ (RBC) [Entitic mass]MCH [Entitic mass] by Automated count24.7-34.3FThe Christ HospitalMCHC Auto (RBC) [Mass/Vol]Ordered By: Cherise Jenkins on 52-11-7988BXIA (RBC) [Mass/Vol]MCHC [Mass/volume] by Automated count32.0-35.0[facility] GeneralMCV Auto (RBC) [Entitic vol]Ordered By: Cherise Jenkins on 81-09-5329QBF (RBC) [Entitic vol]MCV [Entitic volume] by Automated kqdpu86-092 [facility] GeneralMonocytes Auto (Bld) [#/Vol]Ordered By: Cherise Jenkins on 93-44-1257Uxculqfdu (Bld) [#/Vol]Automated blood monocyte count 0.0-0.8[facility] GeneralMonocytes/100 WBC Auto (Bld)Ordered By: Cherise Jenkins on 40-55-8995Fggjucqch/100 WBC (Bld)Automated monocyte %.[facility] GeneralNeutrophils Auto (Bld) [#/Vol]Ordered By: Cherise Jenkins on 21-19-9848Jvtmxorsjhl (Bld) [#/Vol]Neutrophils [#/volume] in Blood by Automated count1.8-7.7FThe Christ HospitalNeutrophils/100 WBC Auto (Bld)Ordered By: hCerise Jenkins on 18-67-0653Qvbodiozdqg/100 WBC (Bld)Automated neutrophil %.[facility] GeneralNo Panel InformationOrdered By: Cherise Jenkins on 33-20-5715Pcgjkrepu GFR (CKD-EPI)> 60.0 mL/MinCleveland Clinic Akron GeneralPharmacy Creatinine Clearance (Chem81.49[facility] GeneralNucleated erythrocytes [Presence] in Blood by Automated countOrdered By: Cherise Jenkins on 30-38-1026Lftdaixpw RBC Auto Ql (Bld)Nucleated erythrocytes [Presence] in Blood by Automated count0-0.5FThe Christ HospitalPlatelet mean volume Auto (Bld) [Entitic vol]Ordered By: Cherise Jenkins on 19-65-7264Wiwquccn mean volume (Bld) [Entitic vol]Platelet mean volume [Entitic volume] in Blood by Automated count6.3-10.7FThe Christ HospitalPlatelets Auto (Bld) [#/Vol]Ordered By: Cherise Jenkins on 40-80-2662Asozdkyja (Bld) [#/Vol]Platelets [#/volume] in Blood by Automated tuemg666-386KberfgnsrCleveland Clinic Akron GeneralPotassium [Moles/volume] in Serum or PlasmaOrdered By: Cherise Jenkins on 58-04-0520Jdaugqter [Moles/Vol]Potassium [Moles/volume] in Serum or Plasma3.5-5.1FThe Christ HospitalProtein [Mass/volume] in Serum or PlasmaOrdered By: Cherise Jenkins on 29-06-4948Pbbzfwu [Mass/Vol]Protein [Mass/volume] in Serum or Plasma6.4-8.9[facility] GeneralRBC Auto (Bld) [#/Vol]Ordered By: Cherise Jenkins on 12-53-3845TCW (Bld) [#/Vol]Erythrocytes [#/volume] in Blood by Automated countHigh3.60-5.[address] [facility] Hospitalerum or plasma albumin/globulin mass ratio Ordered By: Cherise Jenkins on 25-61-7470Wwayvcc/Globulin [Mass ratio]Serum or plasma albumin/globulin mass ratioMercy Health St. Elizabeth Boardman Hospitalerum or plasma anion gap determinationOrdered By: Cherise Jenkins on 45-31-4494Gscql gap [Moles/Vol]Serum or plasma anion gap determination6.0-15.0[facility] Hospitalerum or plasma iron binding capacity measurement (mass/volume) Ordered By: Cherise Jenkins on 97-29-0665Qlxw binding capacity [Mass/Vol]Iron binding capacity [Mass/volume] in Serum or Zoevgq628-385RklvcvrozMercy Health St. Elizabeth Boardman Hospitalerum or plasma iron saturation measurement (mass fraction)Ordered By: Cherise Jenkins on 56-24-3071Evfk saturation [Mass fraction]Iron saturation [Mass Fraction] in Serum or LigixoAjz55-33BmwxvzgerCleveland Clinic Akron General Sodium [Moles/volume] in Serum or PlasmaOrdered By: Cherise Jenkins on 08-25-2024 Sodium [Moles/Vol]Sodium [Moles/volume] in Serum or Iaywuf917-810CuhahhimgCleveland Clinic Akron GeneralTransferrin [Mass/volume] in Serum or PlasmaOrdered By: Cherise Jenkins on 19-98-9603Zitobuuyqme [Mass/Vol]Transferrin [Mass/volume] in Serum or Hsbwzt508-314CnuuictnqCleveland Clinic Akron GeneralUrea nitrogen [Mass/volume] in Serum or PlasmaOrdered By: Cherise Jenkins on 88-94-8092Pyom nitrogen [Mass/Vol]Urea nitrogen [Mass/volume] in Serum or Plasma7-25[facility] GeneralWBC Auto (Bld) [#/Vol]Ordered By: Cherise Jenkins on 06-67-9577CGY (Bld) [#/Vol]Leukocytes [#/volume] in Blood by Automated count 3.8-11.6FThe Christ HospitalEstimated glomerular filtration rate (GFR) non- Americanon 92-35-8209HPY/1.73 sq M.predicted among non-blacks MDRD (S/P/Bld) [Vol rate/Area]Estimated glomerular filtration rate (GFR) non- >=60 mL/min/1.73m 2FThe Christ HospitalGlobulin Calc (S) [Mass/Vol]on 76-66-1575Kuyetjus (S) [Mass/Vol]Serum globulin measurement by calculation (mass/volume)[facility] Globulin (S) [Mass/Vol]4.1 g/dLCleveland Clinic Akron GeneralGlomerular filtration rate (GFR) estimation in non- Americanon 52-96-7637EVV/1.73 sq M.predicted among non-blacks MDRD (S/P/Bld) [Vol rate/Area]mL/min/{1.73_m2}>=60 mL/min/1.73m 2FThe Christ HospitalIron binding capacity [Mass/volume] in Serum or Plasmaon 67-87-9768Zify binding capacity [Mass/Vol] Iron binding capacity [Mass/volume] in Serum or Omolhp272.0-450.0[facility] GeneralIron binding capacity [Mass/Vol]262.0 ug/dL250.0-450.0 [facility] GeneralIron saturation [Mass Fraction] in Serum or Plasmaon 64-55-8685Gwmx saturation [Mass fraction]Iron saturation [Mass Fraction] in Serum or PlasmaCleveland Clinic Akron GeneralIron saturation [Mass fraction]8.8 %[facility] GeneralLaboratory - Chemistry and Chemistry - challengeon 71-61-0073Lrxboro [Mass/Vol]3.2 g/dLLow3.4-5.0[facility] GeneralALP [Catalytic activity/Vol]101 U/A73-230CctqhtmusCleveland Clinic Akron GeneralALT [Catalytic activity/Vol]12 U/QOhx52-43BdgowqnqiCleveland Clinic [facility]ron GeneralAST [Catalytic activity/Vol]11 U/PLrl87-02LmgtjasezCleveland Clinic Akron GeneralBilirubin [Mass/Vol]0.2 mg/dL0.2-1.0[facility] GeneralCalcium [Mass/Vol]9.3 mg/dL8.5-10.1FThe Christ HospitalChloride [Moles/Vol]105 mmol/D91-128LwywesllpCleveland Clinic Akron GeneralCO2 [Moles/Vol]29.6 mmol/L21.0-32.0[facility] GeneralCreatinine [Mass/Vol]0.86 mg/dL0.55-1.02[facility] GeneralFerritin [Mass/Vol]18.0 ng/mL8.0-252.0[facility] GeneralGFR/1.73 sq M.predicted MDRD (S/P/Bld) [Vol rate/Area]mL/min/{1.73_m2}>=60 mL/min/1.73m 2 [facility] GeneralGlucose [Mass/Vol]84 mg/dF76-741PaqfdcootCleveland Clinic [facility]ron GeneralIron [Mass/Vol]23.0 ug/dLLow50.0-170.0[facility] GeneralPotassium [Moles/Vol]4.0 mmol/L3.5-5.1FThe Christ HospitalProtein [Mass/Vol]7.3 g/dL6.4-8.2FSt. Francis Hospitalodium [Moles/Vol]141 mmol/F834-204EfljvksllCleveland Clinic Akron GeneralUrea nitrogen [Mass/Vol]16.0 mg/dL7.0-18.0[facility] GeneralUrea nitrogen/Creatinine [Mass ratio]18.6 mg/mgC[facility] Clinic [facility] General Bilirubin Ql (U)NegativeNEGCrystal Clinic Orthopedic CenterGlucose (U) [Mass/Vol]NegativeNEGATIVECleveland Clinic Akron GeneralKetones Ql (U) NegativeNEGCrystal Clinic Orthopedic CenterpH (U)6.0 [pH]5.0-9.0[facility] Hospitalpecific gravity (U) [Rel density]1.0251.005-1.025 [facility] GeneralUrobilinogen Qn (U)0.2 {Agustín'U}/dL0.2-1.0 [facility] GeneralLaboratory - Specimen informationon 08-11-2024 Appearance (U)CLEARCLEARFThe Christ HospitalColor (U)LT. YELLOW YELLOWCleveland Clinic Akron GeneralLaboratory - Urinalysison 08-11-2024 Leukocyte esterase Test strip Ql (U)LARGEAbnormalNEGATIVECleveland Clinic Akron GeneralNitrite Ql (U)NegativeNEGATIVECleveland Clinic [facility] General Protein Ql (U)30 mg/dLAbnormalNEG/TRACECleveland Clinic Akron GeneralNo Panel Informationon 81-53-8430Utcey Occult BloodMODERATEAbnormalNEGATIVEMercy Health St. Elizabeth Boardman Hospitalerum or plasma albumin/globulin mass ratioon 08-11-2024 Albumin/Globulin [Mass ratio]Serum or plasma albumin/globulin mass ratio [facility] GeneralAlbumin/Globulin [Mass ratio]0.8 {ratio} [facility] Hospitalerum or plasma anion gap determinationon 85-29-1439Ufwgy gap [Moles/Vol]Serum or plasma anion gap determinationCleveland Clinic Akron GeneralAnion gap [Moles/Vol]10.4 mmol/LFThe Christ HospitalUrine Cultureon 40-25-8277Nbbkdubp identified Cx Nom (U)ORGANISM: Strep agalactiae - (group b) (O:STRAGA) Corbin Count >100,000 PERFORMED BY: [place] [address] PATHOLOGIST GLASS DRILLER SHELLIE PIKE M.D.NormalThe [facility] Physician GroupComment on above: Performed By: #### CUU #### [place] [address] USAUrine cultureOrdered By: Vero Pandya on 08-11-2024 Bacteria identified Cx Nom (U)Group B Strep (Streptococcus agalactiae)Abnormal [facility] GeneralBacteria identified Cx Nom (U)Strep agalactiae - (group b)AbnormalCleveland Clinic Akron GeneralBasophils Auto (Bld) [#/Vol] Ordered By: Cherise Jenkins on 75-95-2009Ljkvxhadx (Bld) [#/Vol]0.0 10*3/uL0.0-0.2 [facility] GeneralBasophils/100 WBC Auto (Bld)Ordered By: Cherise Jenkins on 85-18-9529Ulxfdrusi/100 WBC (Bld)0.7 %.[facility] GeneralCBC W Auto Differential panel (Bld)on 30-36-1910Zythkfxwd (Bld) [#/Vol]0.0 10*3/uL0.0 - 0.2 10*3/uLNOMS HealthcareBasophils/100 WBC Manual cnt (Syn fld) 0.7 %.NOMS HealthcareEosinophils (Bld) [#/Vol]0.2 10*3/uL0.0 - 0.45 10*3/uLNORI HealthcareEosinophils/100 WBC Manual cnt (Syn fld)3.4 %.[facility] Erythrocyte distribution width (RBC) [Ratio]16.1 %High11.9 - 15.3 %[facility] CenterHematocrit (Bld) [Volume fraction]46.0 %34.0 - 46.4 %[facility] Hemoglobin (Bld) [Mass/Vol]15.4 g/dL11.8 - 15.4 g/dLMineral Area Regional Medical Center Interpretation and review of laboratory resultsAbnormalMineral Area Regional Medical Center Lymphocytes (Bld) [#/Vol]0.9 10*3/uLLow1.00 - 4.8 10*3/uLNONorthwest Medical Center Lymphocytes/100 WBC Manual cnt (Syn fld)18.8 %.[facility] CenterH (RBC) [Entitic mass]28.5 pg24.7 - 34.3 pgMoberly Regional Medical CenterHC (RBC) [Mass/Vol]33.5 g/dL32.0 - 35.0 g/dLMoberly Regional Medical CenterV (RBC) [Entitic vol]85.3 fL80 - 100 fLMineral Area Regional Medical Center Monocytes (Bld) [#/Vol]0.4 10*3/uL0.0 - 0.8 10*3/uLMineral Area Regional Medical Center Monocytes+Macrophages/100 WBC Manual cnt (Syn fld)7.6 %.[facility] Neutrophils (Bld) [#/Vol]3.3 10*3/uL1.8 - 7.7 10*3/uLNORI Healthcare Neutrophils/100 WBC Manual cnt (Syn fld)69.5 %.[facility] CenterNRBC0.1 /100{WBC}0 - 0.5 /100{WBC}[facility] CenterPlatelet mean volume (Bld) [Entitic vol]9.5 fL6.3 - 10.7 fLSHRINERS HOSPITALS FOR CHILDREN HealthcarePlatelets (Bld) [#/Vol]225 10*3/uL150 - 450 10*3/uLMineral Area Regional Medical CenterRBC LM.HPF (Urine sed) [#/Area]5.40 /[HPF]High3.60 - 5.00NOMS HealthcareWBC (Bld) [#/Vol]4.7 10*3/uL3.8 - 11.6 10*3/uLNORI HealthcareWBC LM.HPF (Urine sed) [#/Area]4.7 10*3/uL3.8 - 11.6 10*3/uLNOMS Kettering Health SpringfieldNORI HealthcareEosinophils Auto (Bld) [#/Vol]Ordered By: Cherise Jenkins on 11-18-2023 Eosinophils (Bld) [#/Vol]0.2 10*3/uL0.0-0.45[facility] Eosinophils/100 WBC Auto (Bld)Ordered By: Cherise Jenkins on 11-18-2023 Eosinophils/100 WBC (Bld)3.4 %.[facility] GeneralErythrocyte distribution width Auto (RBC) [Ratio]Ordered By: Cherise Jenkins on 11-18-2023 Erythrocyte distribution width (RBC) [Ratio]16.1 %High11.9-15.3FThe Christ HospitalFerritin [Mass/volume] in Serum or PlasmaOrdered By: Cherise Jenkins on 82-09-7874Fdxpptlp [Mass/Vol]174.8 ng/mL11.0-306.8[facility] GeneralHematocrit Auto (Bld) [Volume fraction]Ordered By: Cherise Jenkins on 22-78-1434Nwgrmkrbba (Bld) [Volume fraction]46.0 %34.0-46.4FThe Christ HospitalHemoglobin [Mass/volume] in BloodOrdered By: Cherise Jenkins on 42-05-6853Stjwovlwlw (Bld) [Mass/Vol]15.4 g/dL11.8-15.4FThe Christ HospitalIron [Mass/volume] in Serum or PlasmaOrdered By: Cherise Jenkins on 62-26-0884Sqqu [Mass/Vol]70 ug/vF04-948FyggmtoveCleveland Clinic Akron GeneralIron binding capacity [Mass/volume] in Serum or PlasmaOrdered By: Cherise Jenkins on 61-73-8476Frua binding capacity [Mass/Vol]265 ug/iG428-389DgynapvlqCleveland Clinic Akron GeneralIron saturation [Mass Fraction] in Serum or PlasmaOrdered By: Cherise Jenkins on 68-99-8719Dkmp saturation [Mass fraction]26.4 %20-50 [facility] GeneralLeukocytes [#/volume] corrected for nucleated erythrocytes in Blood by Automated counOrdered By: Cherise Jenkins on 11-18-2023 WBC corrected for nucl RBC Auto (Bld) [#/Vol]4.7 10*3/uL3.8-11.6FThe Christ HospitalLymphocytes Auto (Bld) [#/Vol]Ordered By: Cherise Jenkins on 66-62-8246Omeizgnauhs (Bld) [#/Vol]0.9 10*3/uLLow1.00-4.8[facility] GeneralLymphocytes/100 WBC Auto (Bld)Ordered By: Cherise Jenkins on 21-96-4374Eoxcpfylwge/100 WBC (Bld)18.8 %.[facility] Auto (RBC) [Entitic mass]Ordered By: Cherise Jenkins on 70-31-0916EHT (RBC) [Entitic mass]28.5 pg24.7-34.3FThe Christ HospitalMCHC Auto (RBC) [Mass/Vol]Ordered By: Cherise Jenkins on 49-18-6285BBBE (RBC) [Mass/Vol]33.5 g/dL 32.0-35.0[facility] GeneralMCV Auto (RBC) [Entitic vol]Ordered By: Cherise Jenkins on 20-33-4029JOQ (RBC) [Entitic vol]85.3 mH28-932LawfbopzdCleveland Clinic Akron GeneralMonocytes Auto (Bld) [#/Vol]Ordered By: Cherise Jenkins on 56-28-8839Ontawalfr (Bld) [#/Vol]0.4 10*3/uL0.0-0.8[facility] GeneralMonocytes/100 WBC Auto (Bld)Ordered By: Cherise Jenkins on 11-18-2023 Monocytes/100 WBC (Bld)7.6 %.[facility] GeneralNeutrophils Auto (Bld) [#/Vol]Ordered By: Cherise Jenkins on 15-08-5632Nmovpwlutmk (Bld) [#/Vol]3.3 10*3/uL1.8-7.7FThe Christ HospitalNeutrophils/100 WBC Auto (Bld) Ordered By: Cherise Martinezoj on 78-84-4890Dbqogfznqfc/100 WBC (Bld)69.5 %.[facility] GeneralNucleated erythrocytes [Presence] in Blood by Automated countOrdered By: Cherise Wrightromel on 34-95-5578Mwfjaidjh RBC Auto Ql (Bld)0.1 /100{WBC}0-0.5FThe Christ HospitalPlatelet mean volume Auto (Bld) [Entitic vol]Ordered By: Cherise Wrightromel on 48-75-1089Pbbuuvln mean volume (Bld) [Entitic vol]9.5 fL6.3-10.7FThe Christ HospitalPlatelets Auto (Bld) [#/Vol]Ordered By: Cherise Wrightromel on 66-41-9420Oznrstswf (Bld) [#/Vol]225 10*3/uL 150-450[facility] GeneralRBC Auto (Bld) [#/Vol]Ordered By: Cherise Wrightromel on 47-18-8029WXN (Bld) [#/Vol]5.40 10*6/uLHigh3.60-5.00[facility] GeneralTransferrin [Mass/volume] in Serum or PlasmaOrdered By: Cherise Wrightromel on 30-71-2897Muscsmepjud [Mass/Vol]189 mg/bNFnw015-866PrcssfppbCleveland Clinic Akron GeneralWBC Auto (Bld) [#/Vol]Ordered By: Cherise Wrightromel on 01-49-4868XFN (Bld) [#/Vol]4.7 10*3/uL3.8-11.6FThe Christ Hospital Laboratory - Chemistry and Chemistry - challengeon 06-96-9298Pqjoklbpj Ql (U) NegativeNEGCrystal Clinic Orthopedic CenterGlucose (U) [Mass/Vol]Negative NEGATIVECleveland Clinic Akron GeneralKetones Ql (U)NegativeNEGCrystal Clinic Orthopedic CenterpH (U)6.0 [pH]5.0-9.0[facility] Specific gravity (U) [Rel density]>=1.354Fomgcsde1.005-1.025[facility] GeneralUrobilinogen Qn (U)0.2 {Agustín'U}/dL0.2-1.0[facility] GeneralLaboratory - Specimen informationon 34-07-3430Aafpzsnjbu (U)CLOUDY AbnormalCLESycamore Medical CenterColor (U)LT. YELLOWYELLOWCleveland Clinic [facility] GeneralLaboratory - Urinalysison 20-64-4371Dpazxwkys esterase Test strip Ql (U)MODERATEAbnormalNEGATIVECleveland Clinic [facility] Nitrite Ql (U)PositiveAbnormalNEGCrystal Clinic Orthopedic CenterProtein Ql (U)NegativeNEG/TRACECleveland Clinic [facility] GeneralNo Panel Informationon 44-98-8499Gujfh Occult BloodSMALLAbnormalNEGCrystal Clinic Orthopedic CenterLaboratory - Chemistry and Chemistry - challengeon 16-90-6518Fnvxaergn Ql (U)NegativeNEGCrystal Clinic Orthopedic CenterGlucose (U) [Mass/Vol] NegativeNEGATIVECleveland Clinic [facility] GeneralKetones Ql (U)NegativeNEGATIVE [facility] GeneralpH (U)6.0 [pH]5.0-9.0[facility] Hospitalpecific gravity (U) [Rel density]>=1.055Lqzogivn2.005-1.025[facility] GeneralUrobilinogen Qn (U)0.2 {Agustín'U}/dL0.2-1.0[facility] GeneralLaboratory - Specimen informationon 00-75-1450Voratuhaso (U)CLEARCLESycamore Medical CenterColor (U)BROWNAbnormalYELLOW [facility] GeneralLaboratory - Urinalysison 20-34-0778Qaqeltxls esterase Test strip Ql (U)MODERATEAbnormalNEGCrystal Clinic Orthopedic CenterMucus Ql (Urine sed)NONE SEENNONE [facility] Nitrite Ql (U)NegativeNEGATIVECleveland Clinic [facility] GeneralProtein Ql (U) TRACE mg/dLNEG/TRACECleveland Clinic [facility] GeneralNo Panel Informationon 98-67-5027Erzbh BacteriaMODERATE #/HPFAbnormalNONE [facility] HospitalUrine Culture ReflexedYEDayton Osteopathic HospitalUrine Microscopic ReviewYEDayton Osteopathic HospitalUrine Occult BloodMODERATE AbnormalNEGATIVECleveland Clinic [facility] GeneralUrine RBF10-31 #/HPFAbnormal0-2 [facility] GeneralUrine Squamous Epithelial CellsFEW #/LPF AbnormalNONE/RARECleveland Clinic [facility] GeneralUrine WBC>100 #/HPFAbnormal NONE SEENCleveland Clinic [facility] GeneralAlanine aminotransferase [Enzymatic activity/volume] in Serum or PlasmaOrdered By: Dallas Singletary on 08-17-2023 ALT [Catalytic activity/Vol]8 U/L7-52[facility] GeneralAlbumin [Mass/volume] in Serum or Plasma by Bromocresol green (BCG) dye binding metho Ordered By: Dallas Singletary on 71-30-7973Fynmoqb BCG dye [Mass/Vol]4.2 g/dL 3.5-5.7FThe Christ HospitalAlkaline phosphatase [Enzymatic activity/volume] in Serum or PlasmaOrdered By: Dallas Singletary on 08-17-2023 ALP [Catalytic activity/Vol]72 U/Z78-288TwkeffysnCleveland Clinic [facility] General Aspartate aminotransferase [Enzymatic activity/volume] in Serum or PlasmaOrdered By: Dallas Singletary on 66-66-4927POW [Catalytic activity/Vol]11 U/FTrn14-16 [facility] GeneralBasophils Auto (Bld) [#/Vol]Ordered By: Dallas Singletary on 06-08-2167Yozofqpfk (Bld) [#/Vol]0.1 10*3/uL0.0-0.2FThe Christ HospitalBasophils/100 WBC Auto (Bld)Ordered By: Dallas Singletary on 72-24-9327Dvlpitife/100 WBC (Bld)1.1 %.[facility] Bilirubin.total [Mass/volume] in Serum or PlasmaOrdered By: Dallsa Singletary on 74-69-2613Khzcmwpkd [Mass/Vol]0.6 mg/dL0.3-1.0[facility] Calcium [Mass/volume] in Serum or PlasmaOrdered By: Dallas Singletary on 68-13-7711Ukdfeme [Mass/Vol]10.4 mg/dLHigh8.6-10.3FThe Christ HospitalCarbon dioxide, total [Moles/volume] in Serum or PlasmaOrdered By: Dallas Singletary on 97-35-4904EM2 [Moles/Vol]30.4 mmol/L21.0-31.0[facility] GeneralChloride [Moles/volume] in Serum or PlasmaOrdered By: Dallas Singletary on 32-15-0126Osoyqwor [Moles/Vol]106 mmol/N45-457HouwvjalrCleveland Clinic Ak[facility] GeneralCreatinine [Mass/volume] in Serum or PlasmaOrdered By: Dallas Singletary on 59-82-3265Muhkvacezl [Mass/Vol]0.74 mg/dL0.60-1.20[facility] GeneralEosinophils Auto (Bld) [#/Vol]Ordered By: Dallas Singletary on 31-03-0688Qjfpkflnvqp (Bld) [#/Vol]0.2 10*3/uL0.0-0.45[facility] GeneralEosinophils/100 WBC Auto (Bld)Ordered By: Dallas Singletary on 94-25-3039Wssryhobyer/100 WBC (Bld)3.5 %.[facility] GeneralErythrocyte distribution width Auto (RBC) [Ratio]Ordered By: Dallas Singletary on 70-01-5332Nytvguhdvxo distribution width (RBC) [Ratio]14.8 % 11.9-15.3FThe Christ HospitalFerritin [Mass/volume] in Serum or PlasmaOrdered By: Dallas Singletary on 48-38-0177Afcnjfag [Mass/Vol]12.6 ng/mL 11.0-306.8[facility] GeneralFolate [Mass/volume] in Serum or PlasmaOrdered By: Dallas Singletary on 66-64-9304Heheqd [Mass/Vol]10.0 ng/mL>5.9 [facility] GeneralComment on above:Folate reference range: >5.9 ng/mlThe WHO technical consultation on folate and vitamin s32xtwdcayqjdyd has determined that folate concentrations lessthan 4 ng/ml are considered deficient. Folate [Mass/Vol]Folate [Mass/volume] in Serum or Plasma>5.9[facility] GeneralComment on above:Folate reference range: >5.9 ng/mlThe WHO technical consultation on folate and vitamin e29rjfhgmwvbgom has determined that folate concentrations lessthan 4 ng/ml are considered deficient.Globulin Calc (S) [Mass/Vol]Ordered By: Dallas Singletary on 78-35-5186Wzyerqcn (S) [Mass/Vol] 2.9 g/dLCleveland Clinic Akron GeneralGlucose [Mass/volume] in Serum or PlasmaOrdered By: Dallas Singletary on 54-84-4384Bkfxjcl [Mass/Vol]95 mg/dL 70-100[facility] GeneralComment on above:ADA recommended reference rangeRandom Glucose Reference Range is dependent on time and content of last meal. Glucose of more than 200 mg/dL in a nonstressed, ambulatory subject supports the diagnosisof Diabetes Mellitus.Hematocrit Auto (Bld) [Volume fraction]Ordered By: Dallas Singletary on 09-14-2319Zedkjkbcvz (Bld) [Volume fraction]42.3 %34.0-46.4FThe Christ HospitalHemoglobin [Mass/volume] in BloodOrdered By: Dallas Singletary on 96-64-6392Eboixuykiy (Bld) [Mass/Vol]13.8 g/dL11.8-15.4FThe Christ HospitalIron [Mass/volume] in Serum or PlasmaOrdered By: Dallas Singletary 28-53-2800Avfz [Mass/Vol]48 ug/wE38-773MekunfirgCleveland Clinic Akron GeneralIron binding capacity [Mass/volume] in Serum or PlasmaOrdered By: Dallas Singletary on 87-74-4791Jmdo binding capacity [Mass/Vol]333 ug/pR132-724MvdwfyqwlCleveland Clinic Akron GeneralIron saturation [Mass Fraction] in Serum or PlasmaOrdered By: Dallas Singletary on 78-29-0485Vyyp saturation [Mass fraction]14.4 %20-50[facility] GeneralLeukocytes [#/volume] corrected for nucleated erythrocytes in Blood by Automated counOrdered By: Dallas Singletary on 39-16-2311MFW corrected for nucl RBC Auto (Bld) [#/Vol]4.9 10*3/uL3.8-11.6FThe Christ Hospital Lymphocytes Auto (Bld) [#/Vol]Ordered By: Dallas Singletary on 08-17-2023 Lymphocytes (Bld) [#/Vol]1.1 10*3/uL1.00-4.8[facility] Lymphocytes/100 WBC Auto (Bld)Ordered By: Dallas Singletary on 08-17-2023 Lymphocytes/100 WBC (Bld)21.7 %.[facility] CenterH Auto (RBC) [Entitic mass]Ordered By: Dallas Singletary on 49-88-9202WMR (RBC) [Entitic mass]26.4 pg24.7-34.3FThe Christ HospitalMCHC Auto (RBC) [Mass/Vol] Ordered By: Dallas Singletary on 76-75-7105TXOK (RBC) [Mass/Vol]32.6 g/dL 32.0-35.0[facility] GeneralMCV Auto (RBC) [Entitic vol]Ordered By: Dallas Singletary on 69-79-4327GWH (RBC) [Entitic vol]81.0 wT03-509TmvcjkrqyCleveland Clinic Akron GeneralMonocytes Auto (Bld) [#/Vol]Ordered By: Dallas Singletary on 76-35-5331Pzdezfiyq (Bld) [#/Vol]0.4 10*3/uL0.0-0.8[facility] GeneralMonocytes/100 WBC Auto (Bld)Ordered By: Dallas Singletary on 09-11-8288Szgnrmqxn/100 WBC (Bld)7.2 %.[facility] Neutrophils Auto (Bld) [#/Vol]Ordered By: Dallas Singletary on 08-17-2023 Neutrophils (Bld) [#/Vol]3.2 10*3/uL1.8-7.7FThe Christ Hospital Neutrophils/100 WBC Auto (Bld)Ordered By: Dallas Singletary on 08-17-2023 Neutrophils/100 WBC (Bld)66.5 %.[facility] GeneralNo Panel InformationOrdered By: Dallas Singletary on 83-61-5749Bpdfbhjcp GFR (CKD-EPI)> 60.0 mL/MinCleveland Clinic Akron GeneralPharmacy Creatinine Clearance (Chem 83.20[facility] GeneralNucleated erythrocytes [Presence] in Blood by Automated countOrdered By: Dallas Singletary on 84-55-0941Yrvbkbyql RBC Auto Ql (Bld)0.1 /100{WBC}0-0.5FThe Christ HospitalParathyrin.intact [Mass/volume] in Serum or PlasmaOrdered By: Dallas Singletary on 08-17-2023 Parathyrin.intact [Mass/Vol]52.3 pg/oX67-15PkkezhhbbCleveland Clinic [facility] General Parathyrin.intact [Mass/Vol]Parathyrin.intact [Mass/volume] in Serum or Plasma [facility] GeneralPlatelet mean volume Auto (Bld) [Entitic vol]Ordered By: Dallas Singletary on 93-70-1893Ddjkqhca mean volume (Bld) [Entitic vol]9.5 fL6.3-10.7FThe Christ HospitalPlatelets Auto (Bld) [#/Vol]Ordered By: Dallas Singletary on 64-14-2373Waajbqakm (Bld) [#/Vol]222 10*3/rH915-680FbsxifuivCleveland Clinic Akron GeneralPotassium [Moles/volume] in Serum or PlasmaOrdered By: Dallas Singletary on 99-04-9215Ajahhrwao [Moles/Vol]4.4 mmol/L3.5-5.1FThe Christ HospitalProtein [Mass/volume] in Serum or PlasmaOrdered By: Dallas Singletary on 85-80-3365Iytbpva [Mass/Vol]7.1 g/dL 6.4-8.9[facility] GeneralRBC Auto (Bld) [#/Vol]Ordered By: Dallas Singletary on 78-76-2209KJN (Bld) [#/Vol]5.23 10*6/uL3.60-5.00[facility] Hospitalerum or plasma albumin/globulin mass ratioOrdered By: Dallas Singletary on 26-22-5182Dtrcbmm/Globulin [Mass ratio]1.4 {ratio}[facility] Hospitalerum or plasma anion gap determinationOrdered By: Dallas Singletary on 63-37-4536Aebia gap [Moles/Vol]6.0 mmol/L6.0-15.0[facility] Hospitalerum or plasma calcitriol measurement (mass/volume) Ordered By: Dallas Singletary on ,25-dihydroxyvitamin D3 [Mass/Vol] 25.8 pg/mL24.8-81.5FThe Christ HospitalComment on above:Performed at: [facility] [address] [id number] Director: Lucas Hwang MD, Phone: [phone],25-dihydroxyvitamin D3 [Mass/Vol]Serum or plasma calcitriol measurement (mass/volume)24.8-81.5FThe Christ HospitalComment on above:Performed at: [facility] [address] [id number] Director: Lucas Hwang MD, Phone: [phone] or plasma erythropoietin (EPO) measurement (units/volume)Ordered By: Dallas Singletary on 36-68-8475Hcpbsurvnbrvge (EPO) Qn 10.6 mIU/mL2.6-18.5FThe Christ HospitalComment on above:Lieferheldel DxI 800 Immunoassay SystemValues obtained with different assay methods or kits cannotbe used interchangeably. Results cannot be interpreted asabsolute evidence of the presence or absence of malignantdisease.Performed at: [employer] [id number] Director: Gavin Butler PhD, Phone: [phone] (EPO) QnSerum or plasma erythropoietin (EPO) measurement (units/volume)2.6-18.5FThe Christ HospitalComment on above:Lieferheldel DxI 800 Immunoassay SystemValues obtained with different assay methods or kits cannotbe used interchangeably. Results cannot be interpreted asabsolute evidence of the presence or absence of malignantdisease.Performed at: [address] [id number] Director: Gavin Butler PhD, Phone: [phone] or plasma methylmalonate measurement (moles/volume)Ordered By: Dallas Singletary on 62-43-0312Lhjeupjcorsegd [Moles/Vol]187 nmol/L0-378 [facility] GeneralComment on above:This test was developed and its performance characteristicsdetermined by [employer]. It has not been cleared orapproved by the Food and Drug Administration.Performed at: [address] [id number] Director: Lucas Hwang MD, Phone: [phone] [Moles/Vol]Serum or plasma methylmalonate measurement (moles/volume)0-378[facility] GeneralComment on above:This test was developed and its performance characteristicsdetermined by [employer]. It has not been cleared orapproved by the Food and Drug Administration.Performed at: [address] [id number] Director: Lucas Hwang MD, Phone: [phone] [Moles/volume] in Serum or PlasmaOrdered By: Dallas Singletary on 08-17-2023 Sodium [Moles/Vol]138 mmol/X673-905LwwyayldsCleveland Clinic Akron GeneralTransferrin [Mass/volume] in Serum or PlasmaOrdered By: Dallas Singletary on 08-17-2023 Transferrin [Mass/Vol]238 mg/oM027-223IobnihdmoCleveland Clinic [facility] GeneralUrea nitrogen [Mass/volume] in Serum or PlasmaOrdered By: Dallas Singletary on 30-84-9764Ejak nitrogen [Mass/Vol]14 mg/dL7-25[facility] Vitamin B12 ser/plasOrdered By: Dallas Singletary on 19-92-8158Ujcohmacf (Vitamin B12) [Mass/Vol]211 pg/fM667-179FsclxbadkCleveland Clinic [facility] General Cobalamin (Vitamin B12) [Mass/Vol]Vitamin B12 ser/fowm081-719SkdxkivyvCleveland Clinic Akron GeneralVitamin D+Metabolites [Mass/volume] in Serum or PlasmaOrdered By: Dallas Singletary on 83-97-2246Avkxnqt D+Metabolites [Mass/Vol]24.7 ng/mLLow 30-100[facility] GeneralComment on above:VITAMIN D STATUS 25(OH)VITAMIN D RANGE (ng/mL) Deficient <20 Insufficient 20 to <25Aoscqupijk09 to 100Reference: Rosalino Damon, Carmina OLIVARES, et al. Evaluation,treatment, and prevention of vitamin D deficiency; an Endocrine Society clinical practice guideline. JCEM. 2010; 96(7):1911-30.Vitamin D+Metabolites [Mass/Vol]Vitamin D+Metabolites [Mass/volume] in Serum or Plasma Urn64-960KhbkffgvwCleveland Clinic Akron GeneralComment on above:VITAMIN D STATUS 25(OH)VITAMIN D RANGE (ng/mL) Deficient <20 Insufficient 20 to <49Amppyawmuu72 to 100Reference: Rosalino Damon, Carmina OLIVAERS, et al. Evaluation,treatment, and prevention of vitamin D deficiency; an Endocrine Society clinical practice guideline. JCEM. 2010; 96(7):1911-.WBC Auto (Bld) [#/Vol]Ordered By: Dlalas Singletary on 81-76-6618MXI (Bld) [#/Vol]4.9 10*3/uL3.8-11.6FThe Christ HospitalAlanine aminotransferase [Enzymatic activity/volume] in Serum or PlasmaOrdered By: Cherise Jenkins on 41-52-8327GSM [Catalytic activity/Vol]10 U/L7-52[facility] GeneralAlbumin [Mass/volume] in Serum or Plasma by Bromocresol green (BCG) dye binding methoOrdered By: Cherise Jenkins on 35-03-1495Cwakfsp BCG dye [Mass/Vol] 4.5 g/dL3.5-5.7FThe Christ HospitalAlkaline phosphatase [Enzymatic activity/volume] in Serum or PlasmaOrdered By: Cherise Jenkins on 07-64-6590DPR [Catalytic activity/Vol]88 U/W48-083GaqnofsheCleveland Clinic Ak[facility] GeneralAspartate aminotransferase [Enzymatic activity/volume] in Serum or PlasmaOrdered By: Cherise Jenkins on 52-70-6516HLD [Catalytic activity/Vol]12 U/I87-31TmnvnirteCleveland Clinic [facility] GeneralBasophils Auto (Bld) [#/Vol]Ordered By: Cherise Jenkins on 85-14-1375Xkpttdlej (Bld) [#/Vol]0.1 10*3/uL0.0-0.2FThe Christ HospitalBasophils/100 WBC Auto (Bld)Ordered By: Cherise Jenkins on 12-02-2022 Basophils/100 WBC (Bld)1.1 %.[facility] GeneralBilirubin.total [Mass/volume] in Serum or PlasmaOrdered By: Cherise Jenkins on 59-90-2688Dwzugevbd [Mass/Vol]0.8 mg/dL0.3-1.0[facility] GeneralCalcium [Mass/volume] in Serum or PlasmaOrdered By: Cherise Jenkins on 01-15-2107Bzmyjow [Mass/Vol]11.2 mg/dL8.6-10.3FThe Christ HospitalCarbon dioxide, total [Moles/volume] in Serum or PlasmaOrdered By: Cherise Jenkins on 12-02-2022 CO2 [Moles/Vol]31.2 mmol/L21.0-31.0[facility] GeneralChloride [Moles/volume] in Serum or PlasmaOrdered By: Cherise Jenkins on 73-61-8660Evniwlmg [Moles/Vol]104 mmol/C79-242CmptqjccmCleveland Clinic [facility] GeneralCreatinine [Mass/volume] in Serum or PlasmaOrdered By: Cherise Jenkins on 12-02-2022 Creatinine [Mass/Vol]0.66 mg/dL0.60-1.20[facility] Eosinophils Auto (Bld) [#/Vol]Ordered By: Cherise Jenkins on 21-90-5355Lsnlhnqyaus (Bld) [#/Vol]0.2 10*3/uL0.0-0.45[facility] Eosinophils/100 WBC Auto (Bld)Ordered By: Cherise Jenkins on 12-02-2022 Eosinophils/100 WBC (Bld)3.0 %.[facility] GeneralErythrocyte distribution width Auto (RBC) [Ratio]Ordered By: Cherise Jenkins on 12-02-2022 Erythrocyte distribution width (RBC) [Ratio]15.4 %11.9-15.3[facility] CenterFerritin [Mass/volume] in Serum or PlasmaOrdered By: Cherise Jenkins on 59-32-0282Oaqnbelb [Mass/Vol]211.7 ng/mL11.0-306.8[facility] GeneralGlobulin Calc (S) [Mass/Vol]Ordered By: Cherise Jenkins on 12-02-2022 Globulin (S) [Mass/Vol]2.9 g/dLCleveland Clinic Akron GeneralGlucose [Mass/volume] in Serum or PlasmaOrdered By: Cherise Jenkins on 97-11-1942Tmleezz [Mass/Vol]100 mg/uJ74-521AxzgojgjbCleveland Clinic Ak[facility] GeneralComment on above:ADA recommended reference rangeRandom Glucose Reference Range is dependent on time and content of last meal. Glucose of more than 200 mg/dL in a nonstressed, ambulatory subject supports the diagnosisof Diabetes Mellitus.Hematocrit Auto (Bld) [Volume fraction]Ordered By: Cherise Jenkins on 34-59-4350Aebesptbkr (Bld) [Volume fraction]47.7 %34.0-46.4FThe Christ HospitalHemoglobin [Mass/volume] in BloodOrdered By: Cherise Jenkins on 99-85-6746Mcprnlgpoq (Bld) [Mass/Vol]15.7 g/dL11.8-15.4FThe Christ HospitalIron [Mass/volume] in Serum or PlasmaOrdered By: Cherise Jenkins on 26-64-4197Rfum [Mass/Vol]74 ug/dL 50-212[facility] GeneralIron binding capacity [Mass/volume] in Serum or PlasmaOrdered By: Cherise Jenkins on 80-39-0182Ogwk binding capacity [Mass/Vol]279 ug/kE001-734UuaawpkkeCleveland Clinic [facility] GeneralIron saturation [Mass Fraction] in Serum or PlasmaOrdered By: Cherise Jenkins on 19-05-7180Qpuy saturation [Mass fraction]26.5 %20-50[facility] GeneralLeukocytes [#/volume] corrected for nucleated erythrocytes in Blood by Automated coun Ordered By: Cherise Jenkins on 36-93-1997YFN corrected for nucl RBC Auto (Bld) [#/Vol]5.7 10*3/uL3.8-11.6FThe Christ HospitalLymphocytes Auto (Bld) [#/Vol]Ordered By: Cherise Jenkins on 87-88-7589Yesmojumdxv (Bld) [#/Vol]1.1 10*3/uL1.00-4.8[facility] GeneralLymphocytes/100 WBC Auto (Bld) Ordered By: Cherise Jenkins on 12-27-9812Kephotmpdkf/100 WBC (Bld)18.9 %.[facility] CenterH Auto (RBC) [Entitic mass]Ordered By: Cherise Jenkins on 56-98-8335XYG (RBC) [Entitic mass]28.5 pg24.7-34.3FThe Christ HospitalMCHC Auto (RBC) [Mass/Vol]Ordered By: Cherise Jenkins on 51-84-8850HCNY (RBC) [Mass/Vol]32.9 g/dL32.0-35.0[facility] GeneralMCV Auto (RBC) [Entitic vol]Ordered By: Cherise Jenkins on 01-02-3536BGS (RBC) [Entitic vol]86.5 xS26-534KkifzpfzeCleveland Clinic Akron GeneralMonocytes Auto (Bld) [#/Vol] Ordered By: Cherise Jenkins on 47-77-3844Xizildqpn (Bld) [#/Vol]0.4 10*3/uL0.0-0.8 [facility] GeneralMonocytes/100 WBC Auto (Bld)Ordered By: Cherise Jenkins on 32-90-7785Ekslknzkw/100 WBC (Bld)7.8 %.[facility] GeneralNeutrophils Auto (Bld) [#/Vol]Ordered By: Cherise Jenkins on 12-02-2022 Neutrophils (Bld) [#/Vol]3.9 10*3/uL1.8-7.7FThe Christ Hospital Neutrophils/100 WBC Auto (Bld)Ordered By: Cherise Jenkins on 12-02-2022 Neutrophils/100 WBC (Bld)69.2 %.[facility] GeneralNo Panel InformationOrdered By: Cherise Jenkins on 76-62-0640Isvgynnle GFR (CKD-EPI)> 60.0 mL/MinCleveland Clinic Akron GeneralPharmacy Creatinine Clearance (Chem83.08 [facility] GeneralNucleated erythrocytes [Presence] in Blood by Automated countOrdered By: Cherise Jenkins on 95-80-9535Bvseihqhb RBC Auto Ql (Bld)0.2 /100{WBC}0-0.5FThe Christ HospitalPlatelet mean volume Auto (Bld) [Entitic vol]Ordered By: Cherise Jenkins on 60-17-0006Bujvpvpo mean volume (Bld) [Entitic vol]9.5 fL6.3-10.7FThe Christ Hospital Platelets Auto (Bld) [#/Vol]Ordered By: Cherise Jenkins on 01-67-5505Kskoxbsem (Bld) [#/Vol]214 10*3/nD047-403NnahbsbvrCleveland Clinic [facility] GeneralPotassium [Moles/volume] in Serum or PlasmaOrdered By: Cherise Jenkins on 12-02-2022 Potassium [Moles/Vol]5.0 mmol/L3.5-5.1FThe Christ HospitalProtein [Mass/volume] in Serum or PlasmaOrdered By: Cherise Jenkins on 63-85-8787Upbuekn [Mass/Vol]7.4 g/dL6.4-8.9[facility] GeneralRBC Auto (Bld) [#/Vol] Ordered By: Cherise Jenkins on 39-54-7103DNI (Bld) [#/Vol]5.52 10*6/uL3.60-5.[address] [facility] Hospitalerum or plasma albumin/globulin mass ratio Ordered By: Cherise Jenkins on 99-27-3631Fdkohlr/Globulin [Mass ratio]1.6 {ratio} [facility] Hospitalerum or plasma anion gap determinationOrdered By: Cherise Jenkins on 45-36-5256Tynzv gap [Moles/Vol]9.8 mmol/L6.0-15.0[facility] Hospitalodium [Moles/volume] in Serum or PlasmaOrdered By: Cherise Jenkins on 08-84-3109Ssddhy [Moles/Vol]140 mmol/I867-118LsowekiepCleveland Clinic Akron GeneralTransferrin [Mass/volume] in Serum or PlasmaOrdered By: Cherise Jenkins on 31-72-8028Nithxjsubcq [Mass/Vol]199 mg/tA496-283MkwoirwgeCleveland Clinic [facility]ron GeneralUrea nitrogen [Mass/volume] in Serum or PlasmaOrdered By: Cherise Jenkins on 64-04-0365Kbjc nitrogen [Mass/Vol]14 mg/dL7-25[facility] GeneralVitamin B12 ser/plasOrdered By: Cherise Jenkins on 12-02-2022 Cobalamin (Vitamin B12) [Mass/Vol]284 pg/fV928-189OwhtpdmjfCleveland Clinic Akron GeneralWBC Auto (Bld) [#/Vol]Ordered By: Cherise Jenkins on 26-97-7783UJL (Bld) [#/Vol]5.7 10*3/uL3.8-11.6FThe Christ HospitalAlbumin [Mass/volume] in Serum or PlasmaOrdered By: Dallas Singletary on 12-62-5704Pbkgkqq [Mass/Vol] 3.6 g/dL3.2-5.5FThe Christ HospitalBasophils Auto (Bld) [#/Vol] Ordered By: Dallas Singletary on 88-10-8353Qddbhxeut (Bld) [#/Vol]0.1 10*3/uL 0.0-0.2FThe Christ HospitalBasophils/100 WBC Auto (Bld)Ordered By: Dallas Singletary on 76-67-7973Kwpesuwrx/100 WBC (Bld)1.1 %.[facility] GeneralCT biopsyOrdered By: Dallas Singletary on 76-00-9106Bcrquqybwzg [Mass/Vol]194 mg/sI580-869NfaxiyoptCleveland Clinic [facility] GeneralCreatinine and Glomerular filtration rate.predicted panel (S/P/Bld)Ordered By: Dallas Singletary on 13-98-6936Dhxmfddmqa [Mass/Vol]0.72 mg/dL0.44-1.03[facility] GeneralEosinophils Auto (Bld) [#/Vol]Ordered By: Dallas Singletary on 65-14-1722Ipofkdkxppz (Bld) [#/Vol]0.2 10*3/uL0.0-0.45[facility] GeneralEosinophils/100 WBC Auto (Bld)Ordered By: Dallas Singletary on 17-08-4101Bbgkibvrbll/100 WBC (Bld)4.2 %.[facility] GeneralErythrocyte distribution width Auto (RBC) [Ratio]Ordered By: Dallas Singletary on 19-87-9391Pkbyfgkdhsb distribution width (RBC) [Ratio]13.9 % 11.9-15.3FThe Christ HospitalEstimated glomerular filtration rate (GFR) non- AmericanOrdered By: Dallas Singletary on 83-33-7759SMV/1.73 sq M.predicted among non-blacks MDRD (S/P/Bld) [Vol rate/Area]> 60 mL/MinCleveland Clinic Akron GeneralGFR/1.73 sq M.predicted among non-blacks MDRD (S/P/Bld) [Vol rate/Area]Estimated glomerular filtration rate (GFR) non- [facility] GeneralFerritin [Mass/volume] in Serum or Plasma Ordered By: Dallas Singletary on 04-68-8086Fypdiugg [Mass/Vol]90.9 ng/yL08-816.8 [facility] GeneralFolate [Mass/volume] in Serum or PlasmaOrdered By: Dallas Singletary on 24-13-2219Oetbdh [Mass/Vol]7.6 ng/mL>5.9[facility] GeneralComment on above:Folate reference range: >5.9 ng/mlThe WHO technical consultation on folate and vitamin u26ffnogjpycfoa has determined that folate concentrations lessthan 4 ng/ml are considered deficient.Globulin Calc (S) [Mass/Vol]Ordered By: Dallas Singletary on 32-92-5954Zswxweqy (S) [Mass/Vol]3.1 g/dLCleveland Clinic Akron GeneralHematocrit Auto (Bld) [Volume fraction]Ordered By: Dallas Singletary on 04-58-2245Rsmiwmwpbd (Bld) [Volume fraction]44.0 %34.0-46.4FThe Christ HospitalHemoglobin [Mass/volume] in BloodOrdered By: Dallas Singletary on [id number] (Bld) [Mass/Vol]14.1 g/dL11.8-15.4FThe Christ HospitalIron [Mass/volume] in Serum or PlasmaOrdered By: Dallas Singletary on [id number] [Mass/Vol]40 ug/rL78-325FvgavetnvCleveland Clinic Ak[place] GeneralIron binding capacity [Mass/volume] in Serum or PlasmaOrdered By: Dallas Singletary on 05-10-3076Zxhi binding capacity [Mass/Vol]272 ug/oU699-044OtfveuntvCleveland Clinic Akron GeneralIron saturation [Mass Fraction] in Serum or PlasmaOrdered By: Dallas Singletary on 80-43-7581Ujvj saturation [Mass fraction]14.0 %20-50[facility] GeneralLaboratory - Chemistry and Chemistry - challengeOrdered By: Dallas Singletary on 82-05-9776Cskoxyjoa (Vitamin B12) [Mass/Vol]214 pg/vZ403-267 [facility] GeneralLeukocytes [#/volume] corrected for nucleated erythrocytes in Blood by Automated counOrdered By: Dallas Singletary on 61-40-6726WEH corrected for nucl RBC Auto (Bld) [#/Vol]4.6 10*3/uL3.8-11.6 [facility] GeneralLymphocytes Auto (Bld) [#/Vol]Ordered By: Dallas Singletary on 21-31-6649Wassxbdhlql (Bld) [#/Vol]1.2 10*3/uL1.00-4.8 [facility] GeneralLymphocytes/100 WBC Auto (Bld)Ordered By: Dallas Singleatry on 88-97-8269Jffffirsldl/100 WBC (Bld)25.1 %.[facility] CenterH Auto (RBC) [Entitic mass]Ordered By: Dallas Singletary on 88-34-6149HDW (RBC) [Entitic mass]28.1 pg24.7-34.3FMagruder Memorial HospitalHC Auto (RBC) [Mass/Vol]Ordered By: Dallas Singletary on 13-28-4569YRXN (RBC) [Mass/Vol]32.1 g/dL32.0-35.0[facility] GeneralMCV Auto (RBC) [Entitic vol]Ordered By: Dallas Singletary on 13-41-9826DSH (RBC) [Entitic vol]87.4 dW53-975JklhkqwgrCleveland Clinic [facility] GeneralMonocytes Auto (Bld) [#/Vol]Ordered By: Dallas Singletary on 30-33-8114Lwajhkzlt (Bld) [#/Vol] 0.3 10*3/uL0.0-0.8[facility] GeneralMonocytes/100 WBC Auto (Bld) Ordered By: Dallas Singletary on 67-05-2619Jrqncvars/100 WBC (Bld)7.5 %. [facility] GeneralNeutrophils Auto (Bld) [#/Vol]Ordered By: Dallas Singletary on 90-60-4825Cfokveldkfa (Bld) [#/Vol]2.9 10*3/uL1.8-7.7 [facility] GeneralNeutrophils/100 WBC Auto (Bld)Ordered By: Dallas Singletary on 76-15-0620Kqbvkruzmxt/100 WBC (Bld)62.1 %.[facility] GeneralNo Panel InformationOrdered By: Dallas Singletary on 18-13-9395Gnfgnaqrb GFR ()> 60 mL/MinCleveland Clinic Akron GeneralComment on above:GFR estimated reference range: According to KDOQI guidelines, <60 ml/min/1.73m2 is sufficient todiagnose a patient with chronic kidney disease.Pharmacy Creatinine Clearance (Chem85.53[facility] GeneralNucleated erythrocytes [Presence] in Blood by Automated count Ordered By: Dallas Singletary on 94-16-8275Hcggzmvmu RBC Auto Ql (Bld)0.1 /100{WBC}0-0.5FThe Christ HospitalPlatelet mean volume Auto (Bld) [Entitic vol]Ordered By: Dallas Singletary on 91-96-1714Rdyzwhnh mean volume (Bld) [Entitic vol]9.1 fL6.3-10.7FThe Christ HospitalPlatelets Auto (Bld) [#/Vol]Ordered By: Dallas Singletary on 65-86-8172Ngaddibtc (Bld) [#/Vol] 257 10*3/xA690-425DcwhpiujbCleveland Clinic [facility] GeneralProtein [Mass/volume] in Serum or PlasmaOrdered By: Dallas Singletary on 90-95-6433Ywrfuqm [Mass/Vol]6.7 g/dL6.1-7.9[facility] GeneralRBC Auto (Bld) [#/Vol]Ordered By: Dallas Singletary on 86-51-0563ZTG (Bld) [#/Vol]5.03 10*6/uL3.60-5.00[facility] Hospitalerum or plasma alanine aminotransferase measurement without P-5'-P (enzymatic activiOrdered By: Dallas Singletary on 94-55-9848ZOM No additional P-5'-P [Catalytic activity/Vol]13 U/P94-07NoadazuzdMercy Health St. Elizabeth Boardman Hospitalerum or plasma albumin/globulin mass ratioOrdered By: Dallas Singletary on 75-49-4234Gxhzoeo/Globulin [Mass ratio]1.2 {ratio}[facility] Hospitalerum or plasma alkaline phosphatase measurement (enzymatic activity/volume)Ordered By: Dallas Singletary on 43-00-3852FKW [Catalytic activity/Vol]77 U/B28-65SrvvssbjnMercy Health St. Elizabeth Boardman Hospitalerum or plasma anion gap determinationOrdered By: Dallas Singletary on 40-27-0871Tuexq gap [Moles/Vol]11.6 mmol/L6.0-15.0[facility] Hospitalerum or plasma aspartate aminotransferase measurement (enzymatic activity/volume)Ordered By: Dallas Singletary on 51-48-8679YCM [Catalytic activity/Vol]15 U/L10-[address] [facility] Hospitalerum or plasma calcium measurement (mass/volume)Ordered By: Dallas Singletary on 42-14-3543Tyvfxvl [Mass/Vol]9.9 mg/dL8.2-10.2FSt. Francis Hospitalerum or plasma chloride measurement (moles/volume)Ordered By: Dallas Singletary on 00-78-3626Uhfihjaj [Moles/Vol]104 mmol/X17-891HtshbfglnMercy Health St. Elizabeth Boardman Hospitalerum or plasma glucose measurement (mass/volume)Ordered By: Dallas Singletary on 03-04-2022 Glucose [Mass/Vol]100 mg/kY20-776HdsnwdgxvCleveland Clinic [facility] GeneralComment on above:ADA recommended reference rangeRandom Glucose Reference Range is dependent on time and content of last meal. Glucose of more than 200 mg/dL in a nonstressed, ambulatory subject supports the diagnosisof Diabetes Mellitus.Serum or plasma potassium measurement (moles/volume)Ordered By: Dallas Singletary on 29-20-6111Hzpcqsczw [Moles/Vol]5.0 mmol/L3.5-5.1FSt. Francis Hospitalerum or plasma sodium measurement (moles/volume)Ordered By: Dallas Singletary on 39-98-1779Byzkex [Moles/Vol]139 mmol/J986-826WzlxmaknuMercy Health St. Elizabeth Boardman Hospitalerum or plasma total bilirubin measurement (mass/volume)Ordered By: Dallas Singletary on 98-38-8492Rcmxwknxd [Mass/Vol]0.4 mg/dL0.3-1.2FSt. Francis Hospitalerum or plasma total carbon dioxide measurement (moles/volume)Ordered By: Dallas Singletary on 52-67-6011IV6 [Moles/Vol]28.4 mmol/L22.0-30.0[facility] Hospitalerum or plasma urea nitrogen measurement (mass/volume)Ordered By: Dallas Singletary on 60-34-3426Czaq nitrogen [Mass/Vol]15 mg/dL9-[facility] GeneralWBC Auto (Bld) [#/Vol]Ordered By: Dallas Singletary on 06-25-8895CRI (Bld) [#/Vol]4.6 10*3/uL 3.8-11.6FThe Christ HospitalCULTURE URINEon 79-10-3609BTTTVLK URINE Culture Observations: NO GROWTH.NormalThe [facility] CampusComment on above:Performed By: #### URCX #### [facility] [address] [place] [address] Dr. Kamala ZelayaUNIVERSITY HOSPITALS HEALTH SYSTEM URINEon 62-97-6102AYDWYWH URINEIsolate 1 Escherichia coli 15,000 cfu/mL of ORGANISM 1 Escherichia coli ANTIBIOTIC M.I.C RX STATUS Ampicillin >=32 R F Ampicillin/Sulbactam >=32 R F Piperacillin/Tazobactam <=4 S F Cefazolin 16 I F Ceftazidime <=1 S F Ceftriaxone <=1 S F Ertapenem <=0.5 S F Imipenem <=0.25 S F Amikacin <=2 S F Gentamicin <=1 S F Tobramycin <=1 S F Ciprofloxacin <=0.25 S F Levofloxacin <=0.12 S F Nitrofurantoin <=16 S F Trimethoprim/Sulfamethoxazole >=320 R FNormalThe [facility] CampusComment on above:Performed By: #### UAMIC #### [facility] [address] [place] [address] Dr. Kamala Dixon AUTO DIFFon 67-07-2200VACV #0.0 103/ulNormal0.0-0.1The [facility] Hospital [facility] Columbusment on above:Performed By: #### CBC #### [facility] [address] [place] [address] Dr. Kamala ZelayaBasophils/100 WBC (Bld)0.3 %Normal0.2-2.0[facility] Comment on above:Performed By: #### CBC #### [facility] [address] [place] [address] Dr. Kamala Underwood #0.0 103/ulNormal0.0-0.7The [facility] Hospital of Columbusment on above: Performed By: #### CBC #### [facility] [address] [place] [address] Dr. Kamala Sandersonosinophils/100 WBC (Bld)0.1 %Critically low0.9-7.0The [facility] Hospital of Columbusment on above:Performed By: #### CBC #### [facility] [address] [place] [address] Dr. Kamala Sandersonrythrocyte distribution width (RBC) [Ratio]13.2 %Tdsypx09.0-15.0 The [facility] Hospital [facility] Columbusment on above:Performed By: #### CBC #### [facility] [address] [place] [address] Dr. Kamala ZelayaHematocrit (Bld) [Volume fraction]42.5 %Peltst36.0-48.0The [facility] HospitalComment on above:Performed By: #### CBC #### [facility] [address] [address] [address] Kamala ZelayaHemoglobin (Bld) [Mass/Vol]13.7 g/bXTatufn61.0-16.0The [facility] CampusComment on above:Performed By: #### CBC #### [facility] [address] [address] [address] Kamala Guerin #0.02 10e3/ulNormal0.00-0.03The [facility] CampusComment on above:Performed By: #### CBC #### [facility] [address] [address] [address] Kamala Guerin %0.3 %Normal0.0-0.5The [facility] CampusComment on above: Performed By: #### CBC #### [facility] [address] [address] [address] Kamala Hernandez #0.9 103/ulCritically low1.2-3.8The [facility] Comment on above:Performed By: #### CBC #### [facility] [address] [address] [address] Kamala Andersonhocytes/100 WBC (Bld)12.7 %Critically low20.5-60.0The [facility] CampusComment on above:Performed By: #### CBC #### [facility] [address] [address] [address] Kamala ShinUAL DIFF REQNONormalThe [facility] CampusComment on above: Performed By: #### CBC #### [facility] [address] [address] [address] Kamala Menjivar (RBC) [Entitic mass]28.4 njDhhkns69.7-34.0The [facility] CampusComment on above:Performed By: #### CBC #### [facility] [address] [address] [address] Kamala Menjivar (RBC) [Mass/Vol]32.2 g/yACrekki24.9-35.2The [facility] CampusComment on above:Performed By: #### CBC #### [facility] [address] [address] [address] Kamala MenjivarV (RBC) [Entitic vol]88.0 aFDcewcc21.0-99.0The [facility] CampusComment on above:Performed By: #### CBC #### [facility] [address] [address] [address] Kamala Calhoun #0.6 103/ulNormal0.3-0.8The [facility] CampusComment on above:Performed By: #### CBC #### [facility] [address] [address] [address] Kamala Marinelliocytes/100 WBC (Bld)8.6 %Normal1.7-12.0The [facility] Comment on above:Performed By: #### CBC #### [facility] [address] [place] [address] Dr. Kamala Walton #5.7 103/ulNormal1.4-6.5The [facility] CampusComment on above:Performed By: #### CBC #### [facility] [address] [place] [address] Dr. Kamala Cruzutrophils/100 WBC (Bld)78.0 %Critically high43.0-75.0The [facility] CampusComment on above:Performed By: #### CBC #### [facility] [address] [place] [address] Dr. Kamala Sheikhlet mean volume (Bld) [Entitic vol]11.1 fLNormal9.5-13.5The [facility] CampusComment on above:Performed By: #### CBC #### [facility] [address] [place] [address] Dr. Kamala ZelayaPLT195 103/luUmtezq927-513Yco [facility] CampusComment on above: Performed By: #### CBC #### [facility] [address] [place] [address] Dr. Kamala ZelayaRBC4.83 106/ulNormal4.20-5.40The [facility] CampusComment on above:Performed By: #### CBC #### [facility] [address] [address] [address] Kamala ZelayaWBC7.3 103/ulNormal4.0-11.0The [facility] CampusComment on above: Performed By: #### CBC #### [facility] [address] [address] [address] Kamala ThompsonF 14(COMP METB)on 23-23-8632Tsvaqfp [Mass/Vol]3.1 g/dL Critically low3.4-5.0The [facility] CampusComment on above:Performed By: #### CBC #### [facility] [address] [place] [address] Dr. Kamala ZelayaAlbumin/Globulin [Mass ratio]0.9 {ratio}NormalThe [facility] CampusComment on above:Performed By: #### CBC #### [facility] [address] [place] [address] Dr. Kamala MunguiaP [Catalytic activity/Vol]65 U/YEmhtas83-686Agp [facility] CampusComment on above:Performed By: #### CBC #### [facility] [address] [place] [address] Dr. Kamala Johnson [Catalytic activity/Vol]11 U/LCritically mmk30-97Jst [facility] CampusComment on above:Performed By: #### CBC #### [facility] [address] [place] [address] Dr. Kamala Brower gap [Moles/Vol]11.1 mmol/LNormalThe [facility] Comment on above:Performed By: #### CBC #### [facility] [address] [place] [address] Dr. Kamala ZelayaAST [Catalytic activity/Vol]17 U/DOutjgh31-54Shn [facility] CampusComment on above:Performed By: #### CBC #### [facility] [address] [place] [address] Dr. Kamala ZelayaBilirubin [Mass/Vol]0.5 mg/dLNormal0.2-1.0The [facility] Comment on above:Performed By: #### CBC #### [facility] [address] [address] [address] Kamala ZelayaCalcium [Mass/Vol]9.1 mg/dLNormal8.5-10.1The [facility] Comment on above:Performed By: #### CBC #### [facility] [address] [address] [address] Kamala ZelayaChloride [Moles/Vol]106 mmol/ACywzfd81-543Swh [facility] Comment on above:Performed By: #### CBC #### [facility] [address] [address] [address] Kamala ZelayaCO2 [Moles/Vol]26.3 mmol/YCxyxgz94.0-32.0[facility] Comment on above:Performed By: #### CBC #### [facility] [address] [address] [address] Kamala ZelayaCreatinine [Mass/Vol]0.60 mg/dLNormal0.55-1.02The [facility] CampusComment on above:Performed By: #### CBC #### [facility] [address] [address] [address] Kamala SandersonGFR-AF CHADIAN>60Normal>=60The [facility] CampusComment on above:Performed By: #### CBC #### [facility] [address] [address] [address] Kamala SandersonGFR-NON AF CHADIAN>60Normal>=60The [facility] CampusComment on above:Performed By: #### CBC #### [facility] [address] [address] [address] Kamala ZelayaGlobulin (S) [Mass/Vol]3.4 g/dLNormalThe [facility] CampusComment on above:Performed By: #### CBC #### [facility] [address] [address] [address] Kamala ZelayaGlucose [Mass/Vol]108 mg/dLCritically sueb58-510Vhj [facility] CampusComment on above:Performed By: #### CBC #### [facility] [address] [address] [address] Kamala ZelayaPotassium [Moles/Vol]3.4 mmol/LCritically low3.5-5.1The [facility] CampusComment on above:Performed By: #### CBC #### [facility] [address] [address] [address] Kamala ZelayaProtein [Mass/Vol]6.5 g/dLNormal6.4-8.2[facility] Comment on above:Performed By: #### CBC #### [facility] [address] [address] [address] Kamala ZelayaSodium [Moles/Vol]140 mmol/QWacclc749-478Tse [facility] Comment on above:Performed By: #### CBC #### [facility] [address] [address] [address] Kamala ZelayaUrea nitrogen [Mass/Vol]16.0 mg/dLNormal7.0-18.0The [facility] CampusComment on above:Performed By: #### CBC #### [facility] [address] [address] [address] Kamala ZelayaUrea nitrogen/Creatinine [Mass ratio]26.7 mg/mgNoNewark HospitalComment on above:Performed By: #### CBC #### [facility] [address] [address] [address] Kamala ZelayaXR SMALL BOWEL FOLLOW THOUGHon 37-42-0360TL SMALL BOWEL FOLLOW THOUGHEXAMINATION: XR SMALL BOWEL FOLLOW THOUGH HISTORY: nausea and vomiting COMPARISON: No relevant comparison available. TECHNIQUE: Small bowel series was performed in the usual manner. No electorate officer abdominal radiograph was performed. Standard level fluoroscopic [...] Electronically authenticated by: BARB GONZALEZ Date: 2022-02-18 10:55[facility] HospitalC AUTO DIFFon 38-28-1064INXR #0.0 103/ulNormal0.0-0.1The [facility] Hospital [facility] Columbusment on above:Performed By: #### CBC #### [facility] [address] [address] [address] Kamala ZelayaBasophils/100 WBC (Bld)0.4 %Normal0.2-2.0The [facility] Comment on above:Performed By: #### CBC #### [facility] [address] [address] [address] Kamala Underwood #0.0 103/ulNormal0.0-0.7The [facility] CampusComment on above: Performed By: #### CBC #### [facility] [address] [place] [address] Dr. Kamala Sandersonosinophils/100 WBC (Bld)0.3 %Critically low0.9-7.0The [facility] Columbusment on above:Performed By: #### CBC #### [facility] [address] [place] [address] Dr. Kamala Sandersonrythrocyte distribution width (RBC) [Ratio]13.0 %Wtyylf22.0-15.0 [facility] on above:Performed By: #### CBC #### [facility] [address] [place] [address] Dr. Kamala ZelayaHematocrit (Bld) [Volume fraction]53.3 %Critically high36.0-48.0 The [facility] Columbusment on above:Performed By: #### CBC #### [facility] [address] [place] [address] Dr. Kamala ZelayaHemoglobin (Bld) [Mass/Vol]17.4 g/dLCritically high12.0-16.0The [facility] on above:Performed By: #### CBC #### [facility] [address] [place] [address] Dr. Kamala Guerin #0.03 10e3/ulNormal0.00-0.03The [facility] HospitalComment on above:Performed By: #### CBC #### [facility] [address] [address] [address] Kamala Guerin %0.3 %Normal0.0-0.5The [facility] CampusComment on above: Performed By: #### CBC #### [facility] [address] [address] [address] Kamala Hernandez #0.7 103/ulCritically low1.2-3.8The [facility] on above:Performed By: #### CBC #### [facility] [address] [address] [address] Kamala Andersonhocytes/100 WBC (Bld)5.8 %Critically low20.5-60.0The [facility] CampusComment on above:Performed By: #### CBC #### [facility] [address] [place] [address] Dr. Kamala ShinUAL DIFF REQNONormalThe [facility] CampusComment on above: Performed By: #### CBC #### [facility] [address] [place] [address] Dr. Kamala Menjivar (RBC) [Entitic mass]27.9 raOptusk27.7-34.0The [facility] CampusComment on above:Performed By: #### CBC #### [facility] [address] [place] [address] Dr. Kamala Menjivar (RBC) [Mass/Vol]32.6 g/sXCodqoc10.9-35.2The [facility] CampusComment on above:Performed By: #### CBC #### [facility] [address] [place] [address] Dr. Kamala Menjivar (RBC) [Entitic vol]85.4 xPHzzmkp65.0-99.0The [facility] CampusComment on above:Performed By: #### CBC #### [facility] [address] [place] [address] Dr. Kamala Calhoun #0.5 103/ulNormal0.3-0.8The [facility] CampusComment on above:Performed By: #### CBC #### [facility] [address] [address] [address] Kamala Marinelliocytes/100 WBC (Bld)4.0 %Normal1.7-12.0The [facility] Comment on above:Performed By: #### CBC #### [facility] [address] [place] [address] Dr. Kamala CruzUT #10.0 103/ulCritically high1.4-6.5The [facility] Comment on above:Performed By: #### CBC #### [facility] [address] [place] [address] Dr. Kmaala Cruzutrophils/100 WBC (Bld)89.2 %Critically high43.0-75.0The [facility] CampusComment on above:Performed By: #### CBC #### [facility] [address] [place] [address] Dr. Kamala ZelayaPlatelet mean volume (Bld) [Entitic vol]11.8 fLNormal9.5-13.5The [facility] CampusComment on above:Performed By: #### CBC #### [facility] [address] [place] [address] Dr. Kamala ZelayaPLT278 103/blAbydzv967-700Eog [facility] CampusComment on above: Performed By: #### CBC #### [facility] [address] [place] [address] Dr. Kamala ZelayaRBC6.24 106/ulCritically high4.20-5.40The [facility] Comment on above:Performed By: #### CBC #### [facility] [address] [place] [address] Dr. Kamala ZelayaWBC11.2 103/ulCritically high4.0-11.0The [facility] CampusComment on above:Performed By: #### CBC #### [facility] [address] [place] [address] Dr. Kamala Kuhn BLOODon 68-24-5215Farfkfbcztl examination of blood, cultureCulture Observations: NO GROWTH AT 5 DAYS.NormalThe [facility] HospitalComment on above:Performed By: #### UAMIC #### [facility] [address] [address] [address] Kamala Barraganroscopic examination of blood, cultureCulture Observations: NO GROWTH AT 5 DAYS.NormalPromedica Memorial HospitalComment on above:Performed By: #### UAMIC #### [facility] [address] [address] [address] Kamala ZelayaCovid-19 PCR (CVDTBH)on 88-74-2345SIKE-CoV-2 (COVID-19) RNA VERENICE+probe Ql (Unsp spec)Not detectedNormalNOT DETECTEDPromedica Memorial Hospital Comment on above:Result Comment: When diagnostic testing is negative, the [...] for this test is supported by the Residential Support Worker of Health and Human Service's declaration that circumstances exist to justify the emergency use of in vitro diagnostics for the detection and/or diagnosis of the virus that causes COVID-19. This EUA will remain in effect for the duration of the COVID-19 declaration justifying emergency of IVDs, unless it is terminated or revoked by the FDA (after which the test may no longer be used).Performed By: #### CVDTBH #### [facility] [address] [address] [address] Kamala Mejia URINE PROFILEon 46-97-3871Dugsdckih Ql (U)NegativeNormal NEGATIVEThe [facility] CampusComment on above:Performed By: #### CIARA YOO #### [facility] [address] [id number] [address] Kamala ZelayaClarity (U)CLEARNormalCLEARThe [facility] CampusComment on above: Performed By: #### GUILLERMINA YOORO #### [facility] [address] [address] [address] Kamala Piper (U)LT. YELLOWNormalYELLOWPromedica Memorial HospitalComment on above:Performed By: #### CIARA YOO #### [facility] [address] [address] [address] Kamala Storey micrscopic examination will be performed if indicated. NormalThe [facility] CampusComment on above:Performed By: #### GUILLERMINA YOORO #### [facility] [address] [address] [address] Kamala ZelayaGlucose Ql (U)NegativeNormalNEGATIVEPromedica Memorial HospitalComment on above:Performed By: #### GUILLERMINA YOORO #### [facility] [address] [place] [address] Dr. Kamala ZelayaHemoglobin Ql (U)SMALLAbnormalNEGACMC Healthcare System Comment on above:Performed By: #### GUILLERMINA YOORO #### [facility] [address] [place] [address] Dr. Kamala ZelayaKetones Ql (U)15 mg/dlAbst. luke's hospitalalNEGACMC Healthcare System Comment on above:Performed By: #### NAILA UMZINARO #### [facility] [address] [place] [address] Dr. Kamala ZelayaLEUKOCYTESMODERATEAbnormalNEGACMC Healthcare SystemComment on above:Performed By: #### NAILA UMZINARO #### [facility] [address] [address] [address] Kamala ZelayaNitrite Ql (U)NegativeNormalNEGATIVEPromedica Memorial HospitalComment on above:Performed By: #### NAILA UMICRO #### [facility] [address] [address] [address] Kamala ZelayapH (U)6.0 [pH]Normal5-9The [facility] CampusComment on above: Performed By: #### GUILLERMINA YOORO #### [facility] [address] [address] [address] Kamala ZelayaProtein (U) [Mass/Vol]30 mg/dLAbnormalNEGATIVE/ TRACEThe [facility] CampusComment on above:Performed By: #### CIARA YOO #### [facility] [address] [place] [address] Dr. Kamala ZelayaSPEC GRAVITY>=1.638Thkdecdm7.005-<=1.025The [facility] Comment on above:Performed By: #### CIARA YOO #### [facility] [address] [place] [address] Dr. Kamala Hightower MICRO INDINDICATEDNoNewark HospitalComment on above: Performed By: #### GUILLERMINA YOORO #### [facility] [address] [place] [address] Dr. Kamala Laytonbilinogen Qn (U)0.2 {Agustín'U}/dLNormal0.2 - 1.0The [facility] CampusComment on above:Performed By: #### GUILLERMINA YOORO #### [facility] [address] [place] [address] Dr. Kamala RestrepoCTATE/LACTIC ACIDon [id number] [Moles/Vol]1.6 mmol/L Normal0.4-1.9The [facility] CampusComment on above:Performed By: #### CBC #### [facility] [address] [place] [address] Dr. Kamala ZelayaLactate [Moles/Vol]2.0 mmol/LCritically high0.4-1.9The [facility] CampusComment on above:Performed By: #### CBC #### [facility] [address] [place] [address] Dr. Kamala ZelayaLIPASEon 75-92-4327Omybsz [Catalytic activity/Vol]88.0 U/LNormal 73.0-393.0The [facility] CampusComment on above:Performed By: #### UAMIC #### [facility] [address] [place] [address] Dr. Yilan ChangPROF 14(COMP METB)on 79-39-1501Vftyjeu [Mass/Vol]4.0 g/dLNormal 3.4-5.0The [facility] CampusComment on above:Performed By: #### UAMIC #### [facility] [address] [place] [address] Dr. Kamala ZelayaAlbumin/Globulin [Mass ratio]0.9 {ratio}NormalThe [facility] CampusComment on above:Performed By: #### UAMIC #### [facility] [address] [place] [address] Dr. Kamala MunguiaP [Catalytic activity/Vol]95 U/LSuahhn77-829Hvv [facility] CampusComment on above:Performed By: #### UAMIC #### [facility] [address] [place] [address] Dr. Kamala MunguiaT [Catalytic activity/Vol]14 U/BEfadpy60-27Xkb [facility] CampusComment on above:Performed By: #### UAMIC #### [facility] [address] [place] [address] Dr. Kamala Brower gap [Moles/Vol]13.9 mmol/LNormalThe [facility] Comment on above:Performed By: #### UAMIC #### [facility] [address] [place] [address] Dr. Kamala ZelayaAST [Catalytic activity/Vol]14 U/LCritically fcw23-37Mmy [facility] CampusComment on above:Performed By: #### UAMIC #### [facility] [address] [place] [address] Dr. Kamala ZelayaBilirubin [Mass/Vol]0.8 mg/dLNormal0.2-1.0The [facility] Comment on above:Performed By: #### UAMIC #### [facility] [address] [place] [address] Dr. Kamala ZelayaCalcium [Mass/Vol]10.7 mg/dLCritically high8.5-10.1The [facility] CampusComment on above:Performed By: #### UAMIC #### [facility] [address] [place] [address] Dr. Kamala ZelayaChloride [Moles/Vol]97 mmol/LCritically amt29-078Xfx [facility] CampusComment on above:Performed By: #### UAMIC #### [facility] [address] [address] [address] Kamala ZelayaCO2 [Moles/Vol]27.0 mmol/JIkuwlq98.0-32.0The [facility] Comment on above:Performed By: #### UAMIC #### [facility] [address] [address] [address] Kamala ZelayaCreatinine [Mass/Vol]0.76 mg/dLNormal0.55-1.02The [facility] CampusComment on above:Performed By: #### UAMIC #### [facility] [address] [address] [address] Kamala SandersonGFR-AF CHADIAN>60Normal>=60The [facility] CampusComment on above:Performed By: #### UAMIC #### [facility] [address] [address] [address] Kamala SandersonGFR-NON AF CHADIAN>60Normal>=60The [facility] CampusComment on above:Performed By: #### UAMIC #### [facility] [address] [address] [address] Kamala ZelayaGlobulin (S) [Mass/Vol]4.4 g/dLNormalThe [facility] CampusComment on above:Performed By: #### UAMIC #### [facility] [address] [address] [address] Kamala ZelayaGlucose [Mass/Vol]142 mg/dLCritically oyon22-596Tcj [facility] CampusComment on above:Performed By: #### UAMIC #### [facility] [address] [address] [address] Kamala ZelayaPotassium [Moles/Vol]3.9 mmol/LNormal3.5-5.1The [facility] Comment on above:Performed By: #### UAMIC #### [facility] [address] [address] [address] Kamala ZelayaProtein [Mass/Vol]8.4 g/dLCritically high6.4-8.2The [facility] CampusComment on above:Performed By: #### UAMIC #### [facility] [address] [place] [address] Dr. Kamala Vasquezum [Moles/Vol]134 mmol/LCritically doa599-848Jco [facility] CampusComment on above:Performed By: #### UAMIC #### [facility] [address] [place] [address] Dr. Kamala Mansfield nitrogen [Mass/Vol]18.0 mg/dLNormal7.0-18.0The [facility] CampusComment on above:Performed By: #### UAMIC #### [facility] [address] [place] [address] Dr. Kamala Mansfield nitrogen/Creatinine [Mass ratio]23.7 mg/mgNoalThe [facility] CampusComment on above:Performed By: #### UAMIC #### [facility] [address] [place] [address] Dr. Kamala Harris MICROSCOPIC ONLYon 06-89-6600BCQVQVONBINQEErfrakcyGQTI SEEN The [facility] CampusComselect [facility] on above:Performed By: #### GUILLERMINA YOORO #### [facility] [address] [place] [address] Dr. Kamala Rodriguez identified Cx Nom (U)INDICATEDNoNewark HospitalComment on above:Performed By: #### GUILLERMINA YOORO #### [facility] [address] [place] [address] Dr. Kamala Juarez SEENNormalNONE SEENPromedica Memorial HospitalComselect specialty hospital[facility] on above:Performed By: #### NAILA UMICRO #### [facility] [address] [place] [address] Dr. Kamala Andreaystals LM Nom (Urine sed)NONE SEENNormalNONE SEENPromedica Memorial HospitalComselect specialty hospital[facility] on above:Performed By: #### NAILA UMICRO #### [facility] [address] [address] [address] Wray ChangEpithelial cells LM Ql (Urine sed)FEWAbnormalNONE SEEN /RAREThe [facility] CampusComment on above:Performed By: #### CIARA YOO #### [facility] [address] [address] [address] Kamala ZelayaMUCOUSNONE SEENNormalNONE SEENThe [facility] CampusComment on above:Performed By: #### CIARA YOO #### [facility] [address] [address] [address] Kamala ZelayaHqjzsFNS3-34Rqzlncbq6-3Oly [facility] CampusComment on above:Performed By: #### CIARA YOO #### [facility] [address] [address] [address] Kamala ZelayaUkdnvKRP38-748FzrgwutyLQRX SEENThe [facility] CampusComment on above: Performed By: #### CIARA YOO #### [facility] [address] [place] [address] Dr. Kamala ZelyaaXR ABD FLAT_UPon [id number] ABD FLAT_UPEXAM: XR ABD FLAT_UP REASON FOR EXAM: Female, [...] Electronically authenticated by: SANDY DRAKE Date: 2022-02-17 20:11[facility] CenterXR ESOPHAGUSon [id number] ESOPHAGUSEXAMINATION: XR ESOPHAGUS, XR CINERADIOGRAPHY HISTORY: Achalasia of [...] Electronically authenticated by: CHEN MARLEY Date: 2022-02-17 13:54NoNewark HospitalLaboratory - Hematology and Cell countsOrdered By: Dallas Singletary on 15-91-0340Vbzybmkbn RBC/100 WBC (Bld) [Ratio]0.2 %0-0.5FThe Christ HospitalCB AUTO DIFFon 72-60-1737GTNY #0.1 103/ulNormal0.0-0.1 [facility] HospitalComment on above:Performed By: #### CBC #### [facility] [address] [place] [address] Dr. Kamala ZelayaBasophils/100 WBC (Bld)0.9 %Normal0.2-2.0[facility] Comment on above:Performed By: #### CBC #### [facility] [address] [place] [address] Dr. Kamala Underwood #0.2 103/ulNormal0.0-0.7ThSamaritan North Health CenterComment on above: Performed By: #### CBC #### [facility] [address] [place] [address] Dr. Kamala Sandersonosinophils/100 WBC (Bld)3.7 %Normal0.9-7.0[facility] Comment on above:Performed By: #### CBC #### [facility] [address] [place] [address] Dr. Kamala Sandersonrythrocyte distribution width (RBC) [Ratio]14.6 %Kcpitv53.0-15.0 [facility] HospitalComment on above:Performed By: #### CBC #### [facility] [address] [place] [address] Dr. Kamala ZelayaHematocrit (Bld) [Volume fraction]47.0 %Dovhwy88.0-48.0The [facility] CampusComment on above:Performed By: #### CBC #### [facility] [address] [place] [address] Dr. Kamala ZelayaHemoglobin (Bld) [Mass/Vol]14.4 g/hKJazxun30.0-16.0The [facility] CampusComment on above:Performed By: #### CBC #### [facility] [address] [place] [address] Dr. Kamala ZelayaIG #0.01 10e3/ulNormal0.00-0.03The [facility] CampusComment on above:Performed By: #### CBC #### [facility] [address] [place] [address] Dr. Kamala ZelayaIG %0.2 %Normal0.0-0.5The [facility] CampusComment on above: Performed By: #### CBC #### [facility] [address] [place] [address] Dr. Kamala Hernandez #1.4 103/ulNormal1.2-3.8The [facility] CampusComment on above:Performed By: #### CBC #### [facility] [address] [place] [address] Dr. Kamala Westbrookmphocytes/100 WBC (Bld)25.5 %Mtcqsg21.5-60.0The [facility] CampusComment on above:Performed By: #### CBC #### [facility] [address] [place] [address] Dr. Kamala ZelayaMANUAL DIFF REQNONormalThe [facility] CampusComment on above: Performed By: #### CBC #### [facility] [address] [place] [address] Dr. Kamala Morrell (RBC) [Entitic mass]26.2 pgCritically low26.7-34.0The [facility] CampusComment on above:Performed By: #### CBC #### [facility] [address] [place], [place] [id number] Dr. Kamala MenjivarHC (RBC) [Mass/Vol]30.6 g/dSWtqfjk04.9-35.2The [facility] CampusComment on above:Performed By: #### CBC #### [facility] [address] [place] [address] Dr. Kamala MenjivarV (RBC) [Entitic vol]85.6 gACysdgd58.0-99.0The [facility] CampusComment on above:Performed By: #### CBC #### [facility] [address] [place] [address] Dr. Kamala Calhoun #0.4 103/ulNormal0.3-0.8The [facility] CampusComment on above:Performed By: #### CBC #### [facility] [address] [place] [address] Dr. Kamala Marinelliocytes/100 WBC (Bld)7.0 %Normal1.7-12.0The [facility] Comment on above:Performed By: #### CBC #### [facility] [address] [place] [address] Dr. Kamala Walton #3.4 103/ulNormal1.4-6.5The [facility] CampusComment on above:Performed By: #### CBC #### [facility] [address] [place] [address] Dr. Kamala Cruzutrophils/100 WBC (Bld)62.7 %Qjiavp07.0-75.0The [facility] CampusComment on above:Performed By: #### CBC #### [facility] [address] [place] [address] Dr. Kamala Sheikhlet mean volume (Bld) [Entitic vol]11.0 fLNormal9.5-13.5The [facility] CampusComment on above:Performed By: #### CBC #### [facility] [address] [place] [address] Dr. Kamala ZelayaPLT244 103/rdPfybro969-113Cwn [facility] CampusComment on above: Performed By: #### CBC #### [facility] [address] [place] [address] Dr. Kamala ZelayaRBC5.49 106/ulCritically high4.20-5.40The [facility] Comment on above:Performed By: #### CBC #### [facility] [address] [place] [address] Dr. Kamala ZelayaWBC5.4 103/ulNormal4.0-11.0The [facility] CampusComment on above: Performed By: #### CBC #### [facility] [address] [place] [address] Dr. Kamala ZelayaCULTPINKY URINEon 77-31-5554HNPHIAD URINECulture Observations: HEAVY GROWTH OF MIXED GENITAL DELROY. NO POTENTIAL PATHOGENS SEEN.NormalThe [facility] CampusComment on above:Performed By: #### URCX #### [facility] [address] [place] [address] Dr. Kamala ZelayaFERRITINon 88-10-9340Ippzpjsh [Mass/Vol]12.0 ng/mLNormal8.0-252.0 The [facility] CampusComment on above:Performed By: #### FERR #### [facility] [address] [place] [address] Dr. Kamala ZelayaPRODung 14(COMP METB)on 42-15-3811Bwuqydr [Mass/Vol]3.8 g/dLNormal 3.4-5.0The [facility] CampusComment on above:Performed By: #### UAMIC #### [facility] [address] [place] [address] Dr. Kamala ZelayaAlbumin/Globulin [Mass ratio]0.9 {ratio}NormalThe [facility] CampusComment on above:Performed By: #### UAMIC #### [facility] [address] [place] [address] Dr. Kamala Vasques [Catalytic activity/Vol]88 U/RDofaqn98-697Ssj [facility] CampusComment on above:Performed By: #### UAMIC #### [facility] [address] [place] [address] Dr. Yilan ChangALT [Catalytic activity/Vol]19 U/TWmaoad13-16Klo [facility] CampusComment on above:Performed By: #### UAMIC #### [facility] [address] [place] [address] Dr. Kamala Brower gap [Moles/Vol]11.9 mmol/LNormalPromedica Memorial Hospital Comment on above:Performed By: #### UAMIC #### [facility] [address] [place] [address] Dr. Kamala ZelayaAST [Catalytic activity/Vol]10 U/LCritically smg41-98Cfk [facility] CampusComment on above:Performed By: #### UAMIC #### [facility] [address] [place] [address] Dr. Kamala ZelayaBilirubin [Mass/Vol]0.5 mg/dLNormal0.2-1.0[facility] Comment on above:Performed By: #### UAMIC #### [facility] [address] [place] [address] Dr. Kamala ZelayaCalcium [Mass/Vol]9.8 mg/dLNormal8.5-10.1The [facility] Comment on above:Performed By: #### UAMIC #### [facility] [address] [place] [address] Dr. Kamala ZelayaChloride [Moles/Vol]105 mmol/UMmtcbr16-741WxpPromedica Memorial Hospital Comment on above:Performed By: #### UAMIC #### [facility] [address] [place] [address] Dr. Kamala ZelayaCO2 [Moles/Vol]29.5 mmol/UIpnbch19.0-32.0The [facility] Comment on above:Performed By: #### UAMIC #### [facility] [address] [place] [address] Dr. Kamala ZelayaCreatinine [Mass/Vol]0.65 mg/dLNormal0.55-1.02The [facility] CampusComment on above:Performed By: #### UAMIC #### [facility] [address] [place] [address] Dr. Yilan ChangEGFR-AF CHADIAN>60Normal>=60The [facility] CampusComment on above:Performed By: #### UAMIC #### [facility] [address] [place] [address] Dr. Kamala SandersonGFR-NON AF CHADIAN>60Normal>=60The [facility] CampusComment on above:Performed By: #### UAMIC #### [facility] [address] [address] [address] Kamala ZelayaGlobulin (S) [Mass/Vol]4.1 g/dLNormalThe [facility] CampusComment on above:Performed By: #### UAMIC #### [facility] [address] [place] [address] Dr. Kamala ZelayaGlucose [Mass/Vol]99 mg/dSOxktwg95-909NlaPromedica Memorial Hospital Comment on above:Performed By: #### UAMIC #### [facility] [address] [place] [address] Dr. Kamala ZelayaPotassium [Moles/Vol]4.4 mmol/LNormal3.5-5.1The [facility] Comment on above:Performed By: #### UAMIC #### [facility] [address] [place] [address] Dr. Kamala ZelayaProtein [Mass/Vol]7.9 g/dLNormal6.4-8.2[facility] Comment on above:Performed By: #### UAMIC #### [facility] [address] [place] [address] Dr. Kamala ZelayaSodium [Moles/Vol]142 mmol/WEnyuco598-502LdyPromedica Memorial Hospital Comment on above:Performed By: #### UAMIC #### [facility] [address] [address] [address] Kamala ZelayaUrea nitrogen [Mass/Vol]15.0 mg/dLNormal7.0-18.0The [facility] CampusComment on above:Performed By: #### UAMIC #### [facility] [address] [place] [address] Dr. Kamala ZelayaUrea nitrogen/Creatinine [Mass ratio]23.1 mg/mgNormalThe [facility] CampusComment on above:Performed By: #### UAMIC #### [facility] [address] [address] [address] Kamala Pope RANDOM W/MICROSCOPICon 26-62-2070XYBRSRGXUFSJVFqyebrzwTDYP SEENPromedica Memorial HospitalComment on above:Performed By: #### UAMIC #### [facility] [address] [address] [address] Kamala Velasquezirubin Ql (U)NegativeNormalNEGATIVEMarion Hospital on above:Performed By: #### UAMIC #### [facility] [address] [address] [address] Kamala OrtizNONE SEENNormalNONE SEENPromedica Memorial HospitalComment on above:Performed By: #### UAMIC #### [facility] [address] [address] [address] Kamala Drummond (U)CLEARNormalCLEARPromedica Memorial HospitalComment on above: Performed By: #### UAMIC #### [facility] [address] [address] [address] Kamala Piper (U)REDAbnormalYELLOWPromedica Memorial HospitalComment on above: Performed By: #### UAMIC #### [facility] [address] [place] [address] Dr. Kamala ZelayaCrystals LM Nom (Urine sed)NONE SEENNormalNONE SEENPromedica Memorial HospitalComment on above:Performed By: #### UAMIC #### [facility] [address] [place] [address] Dr. Wray ChangEpithelial cells LM Ql (Urine sed)FEWAbnormalNONE SEEN /RAREPromedica Memorial HospitalComment on above:Performed By: #### UAMIC #### [facility] [address] [address] [address] Kamala Bhattose Ql (U)NegativeNormalNEGATIVEPromedica Memorial HospitalComment on above:Performed By: #### UAMIC #### [facility] [address] [address] [address] Kamala ZelayaHemoglobin Ql (U)MODERATEAbnormalNEGATIVEPromedica Memorial Hospital Comment on above:Performed By: #### UAMIC #### [facility] [address] [place] [address] Dr. Kamala ZelayaKetones Ql (U)TRACEAbnormalNEGATIVEPromedica Memorial HospitalComment on above:Performed By: #### UAMIC #### [facility] [address] [address] [address] Kamala ZelayaLEUKOCYTESLARGEAbnormalNEGATIVEPromedica Memorial HospitalComment on above:Performed By: #### UAMIC #### [facility] [address] [place] [address] Dr. Kamala ZelayaMUCOUSNONE SEENNormalNONE SEENPromedica Memorial HospitalComment on above:Performed By: #### UAMIC #### [facility] [address] [place] [address] Dr. Kamala ZelayaNitrite Ql (U)NegativeNormalNEGATIVEPromedica Memorial HospitalComment on above:Performed By: #### UAMIC #### [facility] [address] [place] [address] Dr. Kamala ZelayapH (U)5.5 [pH]Normal5-9Prom[facility] Memorial HospitalComment on above: Performed By: #### UAMIC #### [facility] [address] [place] [address] Dr. Kamala ZelayaEwdpeSVR3-99Aotvzbqg2-6Pas [facility] CampusComment on above:Performed By: #### UAMIC #### [facility] [address] [place] [address] Dr. Kamala ZelayaSPEC GRAVITY>=1.641Hhxocmfk8.005-<=1.025[facility] Comment on above:Performed By: #### UAMIC #### [facility] [address] [place] [address] Dr. Kamala Pope JYHVWQH22 mg/dlAbnormalNEGATIVE/ TRACEPromedica Memorial Hospital Comment on above:Performed By: #### UAMIC #### [facility] [address] [address] [address] Kamala Veliz Qn (U)0.2 {Agustín'U}/dLNormal0.2 - 1.0The [facility] CampusComselect specialty hospital[facility] on above:Performed By: #### UAMIC #### [facility] [address] [address] [address] Kamala ZelayaWBC (U) [#/Vol]/uLAbnormalNONE SEENThe [facility] CampusComment on above:Performed By: #### UAMIC #### [facility] [address] [address] [address] Kamala Torres [id number] (HEMASA) KAVEH THEODORE ([id number]) 1955 F Date Time Provider Department 10/02/20 FRANTZ REYNA During your visit today, we recorded the following information about you: Jennifer Ham [facility] 10/02/2020 1:16 PM Signed Records faxed to [facility]. Patient gave verbal consent. Allergies As of [...] Take 40 mg by mouth twice daily. 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] 05/19/2008 Iron deficiency anemia [D50.9] 10/22/2015 Encounter Status:Closed by JENNIFER TROTTER on [facility]/02/20[facility] Vital Signs Date TimeVital SignValuePerforming BawfzqgtvVwvukewz58-91-0165 13:03-0400Body kaejdq352.26 cmVero Pandya MD Work Phone: [phone]08-11-2025 13:03-0400 Body mass index (BMI) [Ratio]29.8 kg/o3PgcgkeVero Pandya MD Work Phone: [phone]08-11-2025 13:03-0400 Body jdeanyhjngh72.5 [degF]Vero Pandya MD Work Phone: [phone] [address]08-11-2025 13:03-0400 Body .62 kgVero Pandya MD Work Phone: [phone]08-11-2025 13:03-0400 Diastolic blood mmiylnri219 mm[Hg]Vero Pandya MD Work Phone: [phone] [place], [place] [address]008-11-2025 13:03-0400 Heart rate81 /Vitor Pandya MD Work Phone: [phone]08-11-2025 13:03-0400 Respiratory rate16 /Vitor Pandya MD Work Phone: [phone]08-11-2025 13:03-0400 SaO2% (BldA) [Mass fraction]99 %Vero Pandya MD Work Phone: [phone]86[facility]08-11-2025 13:03-0400 Systolic blood scguhgjq932 mm[Hg]Vero Pandya MD Work Phone: [phone]06-05-2025 07:55-0400 Body .26 cmVero Pandya MD Work Phone: [phone]06-05-2025 07:55-0400 Body mass index (BMI) [Ratio]29.9 kg/h8CbocraVero Pandya MD Work Phone: [phone]06-05-2025 07:55-0400 Body kqjapr41.85 kgVero Pandya MD Work Phone: [phone] [place], [place] 4333306-02-2025 14:18-0400 Body sfhoza127.26 cmVero Pandya MD Work Phone: [phone] [place], [place] 4333306-02-2025 14:18-0400 Body mass index (BMI) [Ratio]29.9 kg/q0KdqnbzVero Pandya MD Work Phone: 1(730)[address] [place], [place] 4333306-02-2025 14:18-0400 Body mlrdtvpylis33.9 [degF]Vero Pandya MD Work Phone: 1(822)[address] [place], [place] 4333306-02-2025 14:18-0400 Body ihyplp61.07 kgVero Pandya MD Work Phone: 1(642)[address]06-02-2025 14:18-0400 Diastolic blood rzgducvk74 mm[Hg]Vero Pandya MD Work Phone: 1(969)[address]06-02-2025 14:18-0400 Heart rate68 /Vitor Pandya MD Work Phone: 1(647)[address]06-02-2025 14:18-0400 Respiratory rate16 /Vitor Pandya MD Work Phone: 1(610)[address] [place], [place] 4333306-02-2025 14:18-0400 SaO2% (BldA) [Mass fraction]100 %Vero Pandya MD Work Phone: 1(285)[address]06-02-2025 14:18-0400 Systolic blood evlqegra940 mm[Hg]Vero Pandya MD Work Phone: 1(516)[address]05-27-2025 13:21-0400 Body mvuvsu018.26 cmVero Pandya MD Work Phone: 1(607)[address] [place], [place] 4333305-27-2025 13:21-0400 Body mass index (BMI) [Ratio]29.2 kg/e9YvzndfVero Pandya MD Work Phone: 1(107)[address] [place], [place] 4333305-27-2025 13:21-0400 Body .81 kgVero Pandya MD Work Phone: 1(702)[address] [place], [place] 4333305-27-2025 13:21-0400 Diastolic blood ezpgwemn58 mm[Hg]Vero Pandya MD Work Phone: 1(687)[address] [place], [place] 4333305-27-2025 13:21-0400 Heart rate80 /minVero Pandya MD Work Phone: 1(318)[address] [place], [place] 4333305-27-2025 13:21-0400 Systolic blood ypoxwtkr532 mm[Hg]Vero Pandya MD Work Phone: 1(937)[address] [place], [place] 4333308-23-2024 11:32-0400 Body ohdlgd660.26 cmMD Vero Pandya Work Phone: 1(904)[address] [place], [place] 4333308-23-2024 11:32-0400 Body mass index (BMI) [Ratio]29.2 kg/m2MD Vero Pandya Work Phone: 1(636)[address] [place], [place] 4333308-23-2024 11:32-0400 Body qvyjyczwyji16.2 [degF]MD Vero Pandya Work Phone: 1(594)[address] [place], [place] 4333308-23-2024 11:32-0400 Body .81 kgMD Vero Pandya Work Phone: 1(228)[address] [place], [place] 4333308-23-2024 11:32-0400 Diastolic blood mokwvjnx26 mm[Hg]MD Vero Pandya Work Phone: 1(150)[address]08-23-2024 11:32-0400 Heart rate65 /minMD Vero Pandya Work Phone: [phone]([phone]08-23-2024 11:32-0400 Respiratory rate16 /minMD Vero Pandya Work Phone: 1(523)[address]08-23-2024 11:32-0400 SaO2% (BldA) [Mass fraction]100 %MD Vero Pandya Work Phone: 1(402)[address]13 [address]08-23-2024 11:32-0400 Systolic blood mm[Hg]MD Vero Pandya Work Phone: 1(300)[address]06-11-2024 14:41-0400 Body .1 [degF]MD Vero Pandya Work Phone: 1(336)[address]06-11-2024 14:41-0400 Diastolic blood gzbaurpr10 mm[Hg]MD Vero Pandya Work Phone: 1(460)[address]13 [address]06-11-2024 14:41-0400 Heart rate76 /minMD Vero Pandya Work Phone: 1(633)[address]06-11-2024 14:41-0400 Respiratory rate18 /minMD Vero Pandya Work Phone: 1(511)76813 [address]06-11-2024 14:41-0400 SaO2% (BldA) [Mass fraction]99 %MD Vero Pandya Work Phone: 1(473)[address]06-11-2024 14:41-0400 Systolic blood qcxvtnoc752 mm[Hg]MD Vero Pandya Work Phone: 1(378)[address]05-31-2024 09:43-0400 Body cdxrau821.26 cmMD Vero Pandya Work Phone: 1(048)[address]05-31-2024 09:43-0400 Body mass index (BMI) [Ratio]28.6 kg/m2MD Vero Pandya Work Phone: 1(683)17413 [address]05-31-2024 09:43-0400 Body oeuemg42.99 kgMD Vero Pandya Work Phone: [phone]05-31-2024 09:43-0400 Diastolic blood mm[Hg]MD Vero Pandya Work Phone: 1(268)[address]13 [address]05-31-2024 09:43-0400 Heart rate92 /minMD Vero Pandya Work Phone: 1(791)[address]05-31-2024 09:43-0400 Systolic blood mm[Hg]MD Vero Pandya Work Phone: 1(321)[address]05-24-2024 11:33-0400 Body bklamvouqlc54.8 [degF]MD Vero Pandya Work Phone: 1(178)[address]13 [address]05-24-2024 11:33-0400 Body amhrjx07.71 kgMD Vero Pandya Work Phone: 1(712)[address]05-24-2024 11:33-0400 Diastolic blood jemlcpgo370 mm[Hg]MD Vero Pandya Work Phone: 1(066)[address]05-24-2024 11:33-0400 Heart rate74 /minMD Vero Pandya Work Phone: 1(968)45513 [address]05-24-2024 11:33-0400 Respiratory rate16 /minMD Vero Pandya Work Phone: 1(950)[address]13 [address]05-24-2024 11:33-0400 SaO2% (BldA) [Mass fraction]100 %MD Vero Pandya Work Phone: 1(128)[address]05-24-2024 11:33-0400 Systolic blood mm[Hg]MD Vero Pandya Work Phone: 1(195)[address]13 [address]09-08-2023 11:41-0400 Body apoyujewmmu79.1 [degF]MD Vero Pandya Work Phone: 1(235)[address]13 [address]09-08-2023 11:41-0400 Body .17 kgMD Vero Pandya Work Phone: [facility]09-08-2023 11:41-0400 Diastolic blood vwwyryra52 mm[Hg]MD Vero Pandya Work Phone: [facility]09-08-2023 11:41-0400 Heart rate69 /minMD Vero Pandya Work Phone: [facility]09-08-2023 11:41-0400 Respiratory rate16 /minMD Vero Pandya Work Phone: [facility]09-08-2023 11:41-0400 SaO2% (BldA) [Mass fraction]98 %MD Vero Pandya Work Phone: [facility]09-08-2023 11:41-0400 Systolic blood mm[Hg]MD Vero Pandya Work Phone: [facility]08-22-2023 13:15-0400 Body xlqjre304.72 cmImad Asaad Other [employer] Other 08-22-2023 13:15-0400Body mass index (BMI) [Ratio] 30.41 kg/m2Imad [employer] Other [employer] Other 08-22-2023 13:15-0400Body emtffd97.72 kgImad Asaad Other [employer] Other 08-22-2023 13:15-0400Diastolic blood olowtgsf13 mm[Hg] Imad Asaad Other [employer] Other 08-22-2023 13:15-0400Systolic blood lnnvivtm656 mm[Hg] Imad Asaad Other [employer] Other 12-09-2022 11:26-0500Body dvmrca470.26 cmMD Vero Pandya Work Phone: [facility]12-09-2022 11:26-0500 Body yhwrsiyzvwj66 [degF]MD Vero Pandya Work Phone: [facility]12-09-2022 11:26-0500 Body ddeowd41.5 kgMD Vero Pandya Work Phone: [facility]12-09-2022 11:26-0500 Diastolic blood mm[Hg]MD Vero Pandya Work Phone: [facility]12-09-2022 11:26-0500 Heart rate89 /minMD Vero Pandya Work Phone: [facility]12-09-2022 11:26-0500 Respiratory rate18 /minMD Vero Pandya Work Phone: [facility]12-09-2022 11:26-0500 SaO2% (BldA) [Mass fraction]100 %MD Vero Pandya Work Phone: [facility]12-09-2022 11:26-0500 Systolic blood mm[Hg]MD Vero Pandya Work Phone: [facility] Encounters Encounter DateEncounter TypeCare ProviderFacilityStart: 59-53-4427ekgkqfhgqtangelique PandyaFacility:[facility]: 11-07-2024 Registered RecurringLiyah WHITE[facility] Work Phone: Start: 11-07-2024 End: 40-94-2683iioohazfwmErzkfp E Braun MD Work Phone: [facility] Work Phone: Start: 11-07-2024 End: 72-91-3099Jewbkmn encounter procedureLiyah PR[facility] Work Phone: Start: 09-01-2024 End: 12-90-8588rlhozkiyqdUufjbm E Braun MD Work Phone: [facility] Work Phone: Start: 09-01-2024 End: 44-24-8966Uzsbgwz encounter Yasmin Pandya MD Work Phone: [facility] Physician [facility][Note 3] Orthopedics Work Phone: Start: 82-87-8826Gntssvrewx RecurringVero Pandya MD Work Phone: [facility] Work Phone: Start: 08-29-2024 End: 06-10-9853nbnhvuvpbzPnanay E Braun MD Work Phone: [facility] Work Phone: Start: 08-29-2024 End: 94-74-6694Onnegup encounter procedureVero Pandya MD Work Phone: [facility] Work Phone: Start: 08-25-2024 End: 09-44-6246Xenzbxrm Result EncounterMary Cleve Alice [employer] Work Phone: noms External Department UnsolicitedStart: 08-25-2024 End: 65-91-1914Yztlddsj Result EncounterMary Cleve Alice [employer] Work Phone: noms External Department UnsolicitedStart: 08-23-2024 End: 31-00-3046hkfboczjqfFlabfx Braun MD Work Phone: [facility] Work Phone: Start: 08-23-2024 End: 35-76-4582Otkyjkm encounter procedureVero Pandya MD Work Phone: [facility] Physician [facility] Work Phone: Start: 08-11-2024 End: 89-34-4943qpdlnhgpbvHsrsmy E BraunFacility:[facility] Hospitaltart: 08-11-2024 End: 38-72-1559Twptrmoa ReferredVero Pandya MD Work Phone: [facility] Path Spec [facility] HospStart: 82-56-0736Hwi-patient / Non-visitVero Pandya MD Work Phone: [facility] GroupWhidbey[facility] Professional [facility] Work Phone: Start: 11-20-2023 End: 14-86-5465pyjorehmcuML Vero Pandya Work Phone: [facility] Work Phone: Start: 11-20-2023 End: 55-27-3774Jqqksmu encounter procedureMD Vero Pandya Work Phone: [facility] Work Phone: Start: 76-11-9225Pwmbbugpez RecurringMD Vero Pandya Work Phone: [facility] Work Phone: Start: 11-18-2023 End: 60-66-2332Jzlddvhk Result EncounterMarursula Cleve Alice [employer] Work Phone: noms External Department UnsolicitedStart: 11-18-2023 End: 12-15-9572Mougclmh Result EncounterMary Cleve Alice [employer] Work Phone: noms External Department UnsolicitedStart: 09-09-2023 Non-patient / Non-visitMD Vero Pandya Work Phone: [facility] Physician [facility] Professional Co Work Phone: Start: 57-01-0679Hwx-patient / Non-visitMD Vero Pandya Work Phone: [facility]Wh[facility] Work Phone: Start: 08-28-2023 End: 97-53-3035ewsjeiaqodRO Vero Pandya Work Phone: [facility] Work Phone: Start: 08-28-2023 End: 62-47-0651Xcyribg encounter procedureMD Vero Pandya Work Phone: [facility] Work Phone: Start: 08-21-2023 End: 32-07-0944pcrozrlyjyOR Vero Pandya Work Phone: [facility] Work Phone: Start: 08-21-2023 End: 28-95-1590Wsozjev encounter procedureMD Vero Pandya Work Phone: [facility] Physician [facility] Work Phone: Start: 70-73-1833Auhpqzgeql RecurringMD Vero Pandya Work Phone: [facility] Work Phone: Start: 86-15-1057Pzi-patient / Non-visitMD Vero Pandya Work Phone: [facility] Phys[facility] GroupWh[facility] Professional [facility] Work Phone: Start: 02-25-2023 End: 81-83-3133hnfykxmyotSmvk Asaad Other [employer] Other Start: 97-83-4112Bbecyjhji encounterImad AsaadFPG GastroenterologyStart: 12-05-2022 End: 66-76-6303buzxzzspxlOD Marcia E Braun Work Phone: [facility] Work Phone: Start: 12-05-2022 End: 67-12-9413Sbiyehapaq RecurringMD Vero Pandya Work Phone: [facility] Work Phone: Start: 11-18-2022 End: 49-21-9551xodylzekhnJeas Asaad Other [employer] Other Start: 22-59-4753Gvzckv outpatient new 45 minutesImad AsaadFPG GastroenterologyStart: 03-07-2022 End: 82-93-6020ndcmkxtggeDTChon Pandya Work Phone: [facility] Work Phone: Start: 03-07-2022 End: 07-06-7289Tmmzaqiipq Papi Pandya Work Phone: [facility]-Cancer CenterStart: 02-27-2022 End: 46-03-2143cicsryovouPEKeiry PANDYAFacility:J5Srtjw: 25-70-2076Xlaeg health examinationImaSt. Bernardine Medical Center Other [facility] [employer] Other Start: 02-17-2022 End: 12-08-8266wclclrzcnyMNKeiry PANDYAFacility:T2Rxoum: 10-16-2021 End: 35-44-1532bolvgbkhpmKWKeiry PANDYAFacility:H1 Procedures DateProcedureProcedure DetailPerforming ClinicianStart: 33-25-0267Kykix radiography of pelvisVero Pandya MD Work Phone: Start: 29-15-8376A-ray of right knee, four viewsVero Pandya MD Work Phone: Start: 23-49-1584Acplhadv blood count with white cell differential, Joshua Jenkins [employer] Work Phone: Start: 24-68-9271Gvdzq cultureVero Pandya MD Work Phone: Start: 36-76-4701Znxcwawh blood count with white cell differential, Joshua Jenkins [employer] Work Phone: Plan of Treatment DateCare ActivityDetailAuthorStart: 89-26-4906UmtgvuhrtC[facility] Clinic [facility] Start: 27-80-4915Tjvpz radiography of pelvisXR pelvis 1-2VMercy Health St. [facility] Hospitaltart: 89-45-5590E-ray of right knee, four viewsXR knee RT 4V* [facility] CenterStart: 31-06-1467FL Knee - right [address] [facility] Hospitaltart: 34-84-1159YR Pelvis 1 or [address] [facility] Hospitaltart: 88-86-3305Telhjfv referralDoctors Hospital Work Phone: Start: 59-01-7662BfvamokykC[facility] Clinic [facility] Start: 35-55-6326HbyrmhffrMercy Health St. Elizabeth [facility] Hospitaltart: 21-02-1151Yzjbgqbrkg [Mass/volume] in Serum or [facility]: 28-72-7425Gkiwlaekdioseb (EPO) [Units/volume] in Serum or [facility]htart: 50-40-9973IufqfbrnnMercy Health St. Elizabeth [facility] Hospitaltart: 10-37-7773YhyqlownsC[facility] Clinic Lutheran Hospital CenterStart: 01-24-5558IyimdcphrC[facility] Clinic Lutheran Hospital CenterStart: 17-99-0708KoytpuqipC[facility] Clinic Luther[facility] Hospital CenterStart: 02-12-8496LuflpkrneC[facility] Clinic Luther[facility] Hospital CenterStart: 03-58-9224TjhliyuteCleveland Clinic Lutheran Hospital CenterStart: 17-89-3360AxizotktfC[facility] Clinic Luther[facility] Hospital CenterStart: 53-71-5313BjqwweshlCleveland Clinic Lutheran Hospital CenterStart: 89-85-5142OngpttdrpC[facility] Clinic Lutheran Hospital CenterStart: 52-74-7064MbnojngycC[facility] Clinic [facility] GeneralCalcitriol [Mass/volume] in Serum or [facility] JacksonComprehensive metabolic 1999 panel - [facility] or [facility] Comprehensive metabolic 1999 panel - Serum or [facility] JacksonComprehensive metabolic 1999 panel - Serum or PlasmaComprehensive metabolic panel Lab Routine 08/25/2024 8:20 AM [facility] Work Phone: Comprehensive metabolic 1999 panel - Serum or Plasma [facility] GeneralComprehensive metabolic 1999 panel - Serum or [facility] JacksonErythropoietin (EPO) [Units/volume] in Serum or [facility] JacksonFerritin [Mass/volume] in Serum or [facility] JacksonIron and Iron binding capacity panel - Serum or PlasmaIron and TIBC Lab Routine 11/18/2023 9:19 AM [facility] Work Phone: Iron and Iron binding capacity panel - Serum or Plasma Iron and TIBC Lab Routine 08/25/2024 8:20 AM EDTNOMS HealthcareMethylmalonate [Moles/volume] in Serum or PlasmaACMC Healthcare System Glen[facility] Work Phone: [facility] Payers DatePayer CategoryPayerPolicy [id number] Health Insurance [id number] 2022Medicare [id number] [id number] 1960 Private Health [id number] .[id number] ..[id number] Health Insurancet [employer] [id number] 2..[id number] 2..[id number] [id number] 2..[id number] Social History DateTypeDetailFacilityStart: 03-07-2022 End: 61-55-4273Klnvgai smoking status NHISEx-smoker (finding)[facility] Hospitaltart: 73-77-7325Tyl Assigned At [facility] Northex Assigned At [facility] [employer] Other Start: 62-91-5164Jmrvjmh smoking status NHISNever smoked tobacco (finding)[facility] GeneralTobacco smoking status NHISTobacco smoking consumption unknownSHRINERS HOSPITALS FOR CHILDREN HealthcareStart: 27-03-7438Krm assigned at birthNot on [facility] HealthcareStart: 08-23-2024 End: 45-47-3269KajShylgu (finding)[facility] Goals DatePatient GoalDesired Activity/State Clinical Notes 10-18-2020 to 08-23-2024 Note Date & ZnbiFyhoTuancylb44-82-3952 Evaluation note* Diagnosis Onset Date Resolution Status Admit Date Achalasia acuteMay 2024 1:17pmChronic pain of right kneeacuteMay 2024 1:17pm Group B streptococcal UTIacuteMay 2024 1:17pmIron deficiency anemiaacute August 23, 2024 1:17pmIron deficiency anemiaacuteJune 2024 2:14pmIron deficiency anemiaacuteJune 2024 2:16pm [facility] Work Phone: 1(687) 928-523205-27-2025 Evaluation note* Diagnosis Onset Date Resolution Status Admit Date Achalasia acuteMay 2024 1:17pmChronic pain of right kneeacuteMay 2024 1:17pm Group B streptococcal UTIacuteMay 2024 1:17pmIron deficiency anemiaacute August 23, 2024 1:17pmIron deficiency anemiaacuteJune 2024 2:14pmIron deficiency anemiaacuteAugust 2024 12:55pmLow vitamin B12 levelacuteAugust 2024 12:55pmIron deficiency anemiaacuteAugust 2024 12:56pm [facility] Work Phone: 1(796) 768-192108-22-2023 Evaluation note* Encounter Date Diagnosis Assessment Notes Treatment Notes Treatment Clinical Notes Oct, Iron deficiency anemia, unspecif ied (ICD-10 - D50.9) Patient has never had a colonoscopy. Patient advised to proceed with a colonoscopy to evaluate iron defiency anemia. Oct,chalasia (ICD-10 - K22.0) Oct,Otherpatient to sign release for for egd and CT scan from [facility] Other 06-13-2023 Progress note Author Cherise Jenkins [facility] September 09, 2022 2:32pmNote Date/TimeJune 2022 2:[facility]pm[facility] [place] [address] Hem/Onc Follow Up Note - OP Signed Patient: Kaveh Theodore MR#: [id number] : 1955 Acct:[id number] Age/Sex: 66 / F Type: REG RCR Copies to: Vero Pandya MD SELF,REFERRAL ~ Date of Service: 09/05/2022 Time of Service: 14:42 - Assessment & Plan (1) Iron deficiency anemia Plan: 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 poorly tolerates oral iron. seems to require iv iron about once a year. known achalasia. last scope [place] dec [address] Stephens. they go to [place] in the fall. She will again get IV iron repletion in october 2021. by january, she already has a low iron saturation. ferritin is normal. [place] is going to [place] after mar 30 2022, she has agreed to gi evaluation shwn she retuns in july. She previously saw dr foster. we discussed her fears with colonoscopy and potential alternatives, sigmoidoscopy, ct colonography,cologuard etc. will defer to GI. August 2022 [...] IV iron treatments in the past. At [facility] Dr. Mclaughlin gave her IV iron 2016, 2017, May 2019 and more recently April 2020 down in [place]. She had microcytic anemia consistent with iron deficiency down to [place] this April and was given IV iron [...] with Dr. Stephens two weeks ago at [place], found no concerns. had a lower GI [...] it was right whenkate was going to [place] so did not call back, we will [...] for coordination of care (as documented) and nsre-bq-rypy counseling of patient and/or family. PMFSH - Medical History Medical History: Medical History [...] Sodium 138, Potassium 5.0, Chloride 104, Carbon Tswfztk01.2, Anion Gap 9.8, BUN 15, Creatinine 0.60, Est GFR (CKD- EPI) > 60.0, Glucose 91, Calcium 10.1, Iron [...] % (Auto) 65.5, Lymph % (Auto) 22.0, Stone % (Auto) 7.2, Eos % (Auto) 4.3, Baso % (Auto) 1.0, Nucleat RBC Rel Count 0.1, Neut # (Auto) 3.1, Lymph # (Auto) 1.0, Stone # (Auto) 0.3, Eos # (Auto) 0.2, Baso # (Auto) 0.0 - Home Medications and Allergies Allergies/Adverse Reactions: Allergies No Known Allergies Allergy (Verified 09/05/22 11:06) Home Medications: Home Medications pantoprazole 40 mg tablet,delayed release 40 mg PO DAILY 09/05/22 [History Confirmed 09/05/22] Dictated By: Cherise Jenkins APRN DD/ [id number] Signed By: <Electronically signed by SANDY Jenkins> 09/09/22 1432 [facility] Work Phone: 1(809) 415-412112-09-2022 Progress note Author Dallas Singletary [facility] March 07, 2022 12:00pmNote Date/TimeDece2021 11:50[facility] [place] [address] Hem/Onc Follow Up Note - OP Signed Patient: Kaveh Theodore MR#: [id number] : 1955 Acct:[id number] Age/Sex: 66 / F Type: REG RCR Copies to: Vero Pandya MD SELF,REFERRAL ~ Date of Service: 03/07/2022 Time of Service: 11:49 - Assessment & Plan (1) Iron deficiency anemia Plan: 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 poorly tolerates oral iron. seems to require iv iron about once a year. known achalasia. last scope [place] dec [address] Stephens. they go to [place] in the fall. She will again get IV iron repletion in october 2021. by january, she already has a low iron saturation. ferritin is normal. she is going to [place] after mar 30 2022, she has agreed to gi evaluation shwn she retuns in july. She previously saw dr foster. we discussed her fears with colonoscopy and potential alternatives, sigmoidoscopy, ct colonography,cologuard etc. will defer to GI. Follow Up Instructions: get records from [place] EGD, and path. get vist scheduled wit GI in july/august. f/u with me or territory development manager afterwards cbc, cmp, iron studies prior to f/u . - History of Present Illness Chief Complaint: Patient is here for a 4 month follow up with labs for review. No concerns voiced at this time. 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 She has required IV iron treatments in the past. At [facility] Dr. Mclaughlin gave her IV iron 2016, 2017, May 2019 and more recently April 2020 down in [place]. She had microcytic anemia consistent with iron deficiency down to [place] this April and was given IV iron [...] with Dr. Stephens two weeks ago at [place], found no concerns. had a lower GI [...] for coordination of care (as documented) and ogvt-us-fbzy counseling of patient and/or family. [facility] - Medical History Medical History: Medical [...] Sodium 139, Potassium 5.0, Chloride 104, Carbon Rslsxlv96.4, Anion Gap 11.6, BUN 15, Creatinine 0.72, Est GFR ( Amer) > 60, Est GFR (Non-Af Amer) > 60, Glucose 100, Calcium 9.9, Iron 40, TIBC 272, Iron Saturation 14.0 L, Transferrin 194, Ferritin 90.9, Total Bilirubin 0.4, AST 15, ALT 13, Alkaline Phosphatase 77, Total Protein 6.7, Albumin3.6, Globulin 3.1, Albumin/Globulin Ratio 1.2, Vitamin B12 214, Folate 7.6 03/04/22 11:53: Corrected WBC 4.6, Uncorrected WBC Count 4.6, RBC 5.03 H, Hgb 14.1, Hct 44.0, MCV 87.4, MCH 28.1, MCHC 32.1, RDW 13.9, Plt Count 257, MPV 9.1,Neut % (Auto) 62.1, Lymph % (Auto) 25.1, Stone % (Auto) 7.5, Eos % (Auto) 4.2, Baso % (Auto) 1.1, Nucleat RBC Rel Count 0.1, Neut # (Auto) 2.9, Lymph # (Auto) 1.2, Stone # (Auto) 0.3, Eos # (Auto) 0.2, [...] II, DO> 03/07/22 1200 [facility] Work Phone: 1(681) 501-774911-01-2022 History general Narrative - Reported* Type Description Date Medical History achalasia Medical HistoryanemiaMedical Historystent placementSurgical HistoryNo know Surgical historyHospitalization Rpsxixbavlqbscylfx34/2022 [employer] Other 08-07-2022 Progress note Author Dallas Singletary [facility] November 03, 2021 4:21pmNote Date/TimeAugust 2021 12:00pm[facility] [place] [address] Hem/Onc Follow Up Note - OP Signed Patient: Kaveh Theodore MR#: [id number] : 1955 Acct:[id number] Age/Sex: 66 / F Type: REG RCR [...] any longer for this they go to [place] in the fall. She will again get IV iron repletion in october 2021. Follow Up Instructions: give iv iron x 2 doses. f/u in february. check cbc, cmp, iron studies, b12, folate prior to f/u. - History of Present Illness Chief Complaint: Patient is here today for 1 year follow up visit for iron deficiency anemia and goover labs 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 She has required IV iron treatments in the past. At [facility] Dr. Mclaughlin gave her IV iron 2016, 2017, May 2019 and more recently April 2020 down in [place]. She had microcytic anemia consistent with iron deficiency down to [place] this April and was given IV iron [...] for coordination of care (as documented) and aldj-mz-ohdg counseling of patient and/or family. [facility] - Medical History Medical History: Medical [...] % (Auto) Cancelled, Lymph % (Auto) Cancelled, Stone % (Auto) Cancelled, Eos % (Auto) Cancelled, Baso % (Auto) Cancelled, Neut # (Auto) Cancelled, Lymph # (Auto) Cancelled, Stone # (Auto) Cancelled, Eos # (Auto) Cancelled, [...] % (Auto) 69.5, Lymph % (Auto) 18.7, Stone % (Auto) 7.6, Eos % (Auto) 3.3, Baso % (Auto) 0.9, Neut # (Auto) 4.1, Lymph # (Auto) 1.1, Stone # (Auto) 0.4, Eos # (Auto) 0.2, [...] by Dallas Singletary II, DO> 11/03/21 1621 [facility] Work Phone: [phone]) 484-456909-07-2021 Progress note Author Cameron Mclaughlin [facility] December 04, 2020 1:32pmNote Date/TimeSept2020 1:31p[facility] [place] [address] Hem/Onc Follow Up Note - OP Signed Patient: Kaveh Theodore MR#: [id number] : 1955 Acct:[id number] Age/Sex: 65 / F Type: REG RCR Copies to: Vero Pandya MD SELF,REFERRAL ~ Subjective Date/Time of Service: Date of Service: 12/04/2020 Time of Service: 13:30 Chief Complaint: Patient is here today for 6 week follow up for Iron Deficiency Anemia. She is hereto go over lab work. No new concerns HPI: Kaveh presents in follow-up today December 03, 2020. His iron. Her ferritin is normal. We did order CBC but somehow this got canceled. She feels fine and is going to [place]. She will follow-up with me in July. This is a very nice lady very well-known to me currently 65 years old with a history of achalasia and iron deficiency anemia. She has required IV iron treatments in the past. At [facility] when I was there we gave her IV iron 2016, 2017,May 2019 and more recently April 2020 down in [place]. She had mi crocytic anemia consistent with iron deficiency down to [place] this April and was given IV irontreatments. She is presenting in follow-up today October 18, 2020. She is not having ice craving. No exertional dyspnea. She does get fatigue. [facility] - Medical History Medical History: Medical [...] % (Auto) Cancelled, Lymph % (Auto) Cancelled, Stone % (Auto) Cancelled, Eos % (Auto) Cancelled, Baso % (Auto) Cancelled, Neut # (Auto) Cancelled, Lymph # (Auto) Cancelled, Stone # (Auto) Cancelled, Eos # (Auto) Cancelled, Baso # (Auto) Cancelled, Nucleated RBC % (auto) Cancelled Assessment and Plan (1) Iron deficiency anemia Status post IV iron x2. Repeat ferritin is normal. She feels fine. CBC got canceled. Instructions given to seek medical attention down in [place] if she experiences any new or progressive fatigue. Follow-up with me in July 2021. - Time with Patient Coordination of Care & Counseling Time: Greater than 50% of time spent with patient was for coordination of care (as documented) and euxg-ha-mwjo counseling of patient and/or family. Dictated By: Cameron Mclaughlin MD DD/ 29 Signed By: <Electronically signed by MD Cameron Mclaughlin> 12/04/201331 [facility] Work Phone: 1(451) 434-628807-22-2021 Progress note Author Cameron Mclaughlin [facility] October 18, 2020 4:01pmNote Date/TimeJuly 2020 1:[facility] [place] [id number] Hem/Onc Follow Up Note - OP Signed with Addchris Patient: Kaveh Theodore MR#: [id number] : 1955 Acct:[id number] Age/Sex: 65 / F Type: REG RCR [...] iron studies prior to her going to [place]. -JF Addendum Dictated By: MD Cameron Mclaughlin Addendum Signed By: 10/18/201600 Addendum Cosigned By: DD/ TD/TT: 10/18/20 Subjective Date/Time of Service: Date of Service: 10/18/2020 Time of Service: 13:19 Chief Complaint: Patient is transferring care from [facility] and the [facility] in [place], [place] for iron deficiency. Patient states that she has been more tired than usual. No other concerns. HPI: This is a very nice lady very well-known to me currently 65 years old with a history of achalasia and iron deficiency anemia. She has required IV iron treatments in the past. At [facility] when I was there we gave her IV iron 2016, 2017,May 2019 and more recently April 2020 down in [place]. She had mi crocytic anemia consistent with iron deficiency down to [place] this April and was given IV irontreatments. She is presenting in follow-up today October 18, 2020. She is not having ice craving. No exertional dyspnea. She does get fatigue. She will be going back to [place] in November. We will check her labs today. [facility] - Medical History Medical History: Medical History [...] past. More recently she was treated in [place] in April 2020 with IV iron. At this time we will check a CBC and iron studies. If these are abnormal I willcall her and have her come in for IV iron. If these are normal I will see her in early November prior to her going down [facility]. We will check CBC and iron studies on the day. - Time with Patient Coordination of Care & Counseling Time: Greater than 50% of time spent with patient was for coordination of care (as documented) and vhqe-dm-guhk counseling of patient and/or family. Dictated By: Cameron Mclaughlin MD DD/ 1319 Signed By: <Electronically signed by MD Cameron Mclaughlin> 10/18/20 1323 [facility] Work Phone: Evaluation note* Diagnosis Onset Date Resolution Status Iron deficiency anemia acute [facility] Work Phone: Evaluation noteNo PNP [employer] [employer] Other Evaluation note* Diagnosis Onset Date Resolution Status Iron deficiency anemia acuteIron deficiency anemiaacuteAchalasiaacuteDehydrationacuteUrine abnormality acute [facility] Work Phone: Evaluation note* Diagnosis Onset Date Resolution Status Achalasia acuteDehydrationacuteUrine abnormalityacuteIron deficiency anemiaacute [facility] Work Phone: Evaluation note* Diagnosis Onset Date Resolution Status Admit Date Achalasia acuteMay 2024 1:17pmChronic pain of right kneeacuteMay 2024 1:17pm Iron deficiency anemiaacuteMay 2024 1:17pm [facility] Work Phone: Hospital Discharge instructionsAmbulatory Orders* Referral to Orthopedics Time Frame: 08/23/24, Location: None Selected [facility] Work Phone: Progress note Author Dallas Singletary [facility] March 07, 2022 12:00pmNote Date/TimeDece2021 11:50[facility] [place] [address] Hem/Onc Follow Up Note - OP Signed Patient: Kaveh Theodore MR#: [id number] : 1955 Acct:[id number] Age/Sex: 66 / F Type: REG RCR Copies to: Vero Pandya MD SELF,REFERRAL ~ Date of Service: 03/07/2022 Time of Service: 11:49 - Assessment & Plan (1) Iron deficiency anemia Plan: 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 poorly tolerates oral iron. seems to require iv iron about once a year. known achalasia. last scope shar[place] dec [address] Dr[address] Stephens. they go to [place] in the fall. She will again get IV iron repletion in october 2021. by january, she already has a low iron saturation. ferritin is normal. she is going to [place] after mar 30 2022, she has agreed to gi evaluation shwn she retuns in july. She previously saw dr foster. we discussed her fears with colonoscopy and potential alternatives, sigmoidoscopy, ct colonography,cologuard etc. will defer to GI. Follow Up Instructions: get records from [place] [facility], and path. get vist scheduled wit GI in july/august. f/u with me or territory development manager afterwards cbc, cmp, iron studies prior to f/u . - History of Present Illness Chief Complaint: Patient is here for a 4 month follow up with labs for review. No concerns voiced at this time. 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 She has required IV iron treatments in the past. At [facility] Dr. Mclaughlin gave her IV iron 2016, 2017, May 2019 and more recently April 2020 down in [place]. She had microcytic anemia consistent with iron deficiency down to [place] this April and was given IV iron [...] with Dr. Stephens two weeks ago at [place], found no concerns. had a lower GI [...] for coordination of care (as documented) and xten-aw-epgm counseling of patient and/or family. [facility] - Medical History Medical History: Medical [...] Sodium 139, Potassium 5.0, Chloride 104, Carbon Wflwnhn78.4, Anion Gap 11.6, BUN 15, Creatinine 0.72, Est GFR ( Amer) > 60, Est GFR (Non-Af Amer) > 60, Glucose 100, Calcium 9.9, Iron 40, TIBC 272, Iron Saturation 14.0 L, Transferrin 194, Ferritin 90.9, Total Bilirubin 0.4, AST 15, ALT 13, Alkaline Phosphatase 77, Total Protein 6.7, Albumin3.6, Globulin 3.1, Albumin/Globulin Ratio 1.2, Vitamin B12 214, Folate 7.6 03/04/22 11:53: Corrected WBC 4.6, Uncorrected WBC Count 4.6, RBC 5.03 H, Hgb 14.1, Hct 44.0, MCV 87.4, MCH 28.1, MCHC 32.1, RDW 13.9, Plt Count 257, MPV 9.1,Neut % (Auto) 62.1, Lymph % (Auto) 25.1, Stone % (Auto) 7.5, Eos % (Auto) 4.2, Baso % (Auto) 1.1, Nucleat RBC Rel Count 0.1, Neut # (Auto) 2.9, Lymph # (Auto) 1.2, Stone # (Auto) 0.3, Eos # (Auto) 0.2, Baso # (Auto) 0.1 - Home Medications and Allergies Allergies/Adverse Reactions: Allergies No Known Allergies Allergy (Verified 03/07/22 11:25) Home Medications: Home Medications esomeprazole magnesium 20 mg capsule,delayed release (Nexium) 20 mg PO DAILY 10/18/20 [History Confirmed 03/07/22] Dictated By: Dallas Singletary II, DO DD/ 1149 Signed By: <Electronically signed by Dallas Singletary II DO> 03/07/22 1200 [facility] Work Phone: Reason for referral (narrative)No reason for referral information availableDoctors Hospital Work Phone: Summary Purpose Family History No [...] deficiency anem ia Chief Complaint Amb Documentation AnemiaReason for VisitIron deficiency anemia Chief Complaint Amb Documentation Anemia headaches, poss dehydrationReason for VisitIron deficiency anemia Iron deficiency anemia Achalasia Dehydration Urine abnormality Chief Complaint headaches, poss dehy dration Anemia Follow UpReason for VisitAchalasia Dehydration Urine abnormality Iron deficiency anemia Chief Complaint Admit Date Unknown August 11, 2024 2:59p m Follow up urine culture August 23, 2024 1 :17pm Reason for Visit Admit Date Achalasia August 23, 2024 1:17p m Chronic pain of right knee August 23 1:17pm Iron deficiency anemia August 23, 2024 1: 17pm Chief Complaint Admit Date Unknown August 11, 2024 2:59p m Follow up urine culture August 23, 2024 1 :17pm f/u back from [place] August 29, 2024 2:1 4pm Anemia August 29, 2024 2:16p m Reason for Visit Admit Date Achalasia August 23, 2024 1:17p m Chronic pain of right knee August 23 1:17pm Group B streptococcal UTI August 23, 2024 1:17pm Iron deficiency anemia August 23, 2024 1: 17pm Iron deficiency anemia August 29, 2024 2: 14pm Iron deficiency anemia August 29, 2024 2: 16pm Chief Complaint Admit Date Unknown August 11, 2024 2:59p m Follow up urine culture August 23, 2024 1 :17pm f/u back from [place] August 29, 2024 2:1 4pm Anemia August 29, 2024 2:16p m CONSULT DR. PANDYA RT KNEE PAIN NX September 012024 7:42am M25.561 - Pain in right knee September 01 025 7:45am Chief Complaint Admit Date Unknown August 11, 2024 2:59p m Follow up urine culture August 23, 2024 1 :17pm f/u back from [place] August 29, 2024 2:[address] PANDYA RT KNEE PAIN NX September 012024 7:42am M25.561 - Pain in right knee September 01, 2 025 7:45am Follow Up 10 Weeks November 07, 2024 12 :55pm Anemia November 07, 2024 12 :56pm Reason for Visit Admit Date Achalasia August 23, 2024 1:17p m Chronic pain of right knee August 23 1:17pm Group B streptococcal UTI August 23, 2024 1:17pm Iron deficiency anemia August 23, 2024 1: 17pm Iron deficiency anemia August 29, 2024 2: 14pm Iron deficiency anemia November 07, 2024 12:55pm Low vitamin B12 level November 07, 2024 12:55pm Iron deficiency anemia November 07, 2024 12:56pm Additional Source Comments INFORMATION SOURCE (unrecogn ized section and content) DATE CREATED AUTHOR 04/21/2021 [facility] DATE CREATED AUTHOR AUTHOR'S ORGANIZ ATION 03/01/2022 [facility] DATE CREATED AUTHOR AUTHOR'S ORGANIZ ATION 02/08/2025 [facility] Care Teams (unrecognized sec tion and content) Team Status: Active Member Role Status Dates Vero Pandya MD Primary Care Provider Active Team Status: Active Member Role Status Dates Vero Pandya MD Primary Care Provide r, Attending Provider Active Start: August 11, 2024 Team Status: Inactive Member Role Status Dates Vero Pandya MD Attending Provider Active St art: August 11, 2024 End: August 11, 2024 Team Status: Inactive Member Role Status Dates Vero Pandya MD Primary Care Provide r, Attending Provider Active Start: August 23, 2024 End: August 23, 2024 Team Status: Inactive Member Role Status Dates Vero Pandya MD Primary Care Provide r, Attending Provider Active Start: August 28, 2023 End: August 28, 2023 Team Status: Active Member Role Status Dates Vero Pandya MD Primary Care Provide r, Attending Provider Active Start: August 31, 2023 Team Status: Active Member Role Status Dates Vero Pandya MD Primary Care Provide r, Attending Provider Active Start: September 09, 2023 Team Status: Active Member Role Status Dates Vero Pandya MD Primary Care Provider Active Start: November 20, 2023 Referral SelfReferring ProviderActiveStart: November 20, 2023 WaleskaNelly Jenkins APRNAttenjuan ProviderActiveStart: November 20, 2023 Team Status: Inactive Member Role Status Dates Vero Pandya MD Primary Care Provider Active Start: November 20, 2023 End: November 20, 2023Cherise Jenkins APRNAtcharity ProviderActive Start: November 20, 2023 End: November 20, 2023 Team Status: Active Member Role Status Dates Vero Pandya MD Primary Care Provider Active Daksha Bargererral SelfReferring ProviderActiveTimjosef Singletary II, DOAttending ProviderActive Team Status: Active Member Role Status Dates Vero Pandya MD Primary Care Provider Active Start: July 15, 2023 Yaritza Ken LPNAtcharity ProviderActiveStart: July 15, 2023 Team Status: Active Member Role Status Dates Vero Pandya MD Primary Care Provider Active Start: August 21, 2023 Cameron Mclaughlin MDActiveStart: August 21, 2023 Referral SelfReferring ProviderActiveStart: August 21, 2023 Dallas Singletary II, DOAttending ProviderActiveStart: August 21, 2023 Team Status: Inactive Member Role Status Dates Vero Pandya MD Primary Care Provider Active Start: August 21, 2023 End: August 21, 2023Cherise Villegas Alice , APRNAttending ProviderActiveStart: August 21, 2023 End: August 21, 2023 Team Status: Inactive Member Role Status Dates Vero Pandya MD Primary Care Provider Active Start: August 29, 2024 End: August 29tasha Puri , GLAZE SPRAYER-CAttending ProviderActiveStart: August 29, 2024 End: August 29, 2024 Team Status: Active Member Role Status Dates Vero Pandya MD Primary Care Provider Active Start: August 29, 2024 Referral SelfReferring ProviderActiveStart: August 29, 2024 Cherise Villegas Alice , APRNAttenjuan ProviderActiveStart: August 29, 2024 Team Status: Inactive Member Role Status Dates Vero Pandya MD Primary Care Provider Active Start: September 01, 2024 End: September 01, 2024Rick Torres II, MDAttending ProviderActiveStart: September 01, 2024 End: September 01, 2024 Team Status: Active Member Role Status Dates Vero Pandya MD Primary Care Provider Active Start: September 01, 2024 Rick Torres II, MDAttending ProviderActiveStart: September 01, 2024 Team Status: Active Member Role Status Dates Vero Pandya MD Primary Care Provider Active Start: August 11, 2024 Vero Pandya MDAttending ProviderActiveStart: August 11, 2024 Team Status: Inactive Member Role Status Dates Vero Pandya MD Primary Care Provider Active Start: August 23, 2024 End: August 23, 2024Vero Pandya MDAttending ProviderActiveStart: August 23, 2024 End: August 23, 2024 Team Status: Inactive Member Role Status Dates Vero Pandya MD Primary Care Provider Active Start: November 07, 2024 End: November 07tasha Puri GLAZE SPRAYER-CAttending ProviderActiveStart: November 07, 2024 End: November 07, 2024 Team Status: Active Member Role Status Dates Vero Pandya MD Primary Care Provider Active Start: November 07, 2024 Referral SelfReferring ProviderActiveStart: November 07, 2024 Liyah Puri NP-CAttenjuan ProviderActiveStart: November 07, 2024 Goals (unrecognized section and content) Goals may be documented in a n alternate sectionNo InformationGoals may be documented in an alternate sectionNo InformationGoals may be documented in an alternate sectionGoals may be documented in an alternate sectionGoals may be documented in an alternate section [...] BE BASED ON THE PRIMARY CLINICAL RECORDS. [facility] [employer] [facility]. provides no warranty or guarantee of the accuracy or completeness of information in this document.
--- OUTSIDE RECORDS SUMMARY | 2025-02-11 09:01 | XMS_ITS | Clinical Summary ---
Author Organization [facility] tem Address [id number] [address] 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 Name Role Phone Vero Coates MD Primary Care Provider [phone] Social History Tobacco UseTypesPacks/DayYears UsedDateSmoking Tobacco: Never AssessedChildcare AnswerDate YzuhgduaPkmgajuogPqbucut12/12/2019EmploymentAnswerDate Recorded CjeweiyunlPzsjmtc13/12/2019CommentsUnknownSex and Gender Information ValueDate RecordedSex Assigned at BirthNot on fileLegal OqxFlflis11/06/2015 11:51 AM EDTGender IdentityNot on fileSexual OrientationNot on file Plan of Treatment Health MaintenanceDue DateLast DoneCommentsDepression Avbowaryx02/05/1969Tobacco Dtgxjujhq55/05/1969Adult BMI Rlhsetxug55/05/1975Zoster (Shingles) Vaccine (1 of 2)2006Fall Risk Hjleqsjkj70/05/2022DTaP,Tdap and Td Vaccines (2 - Td or Tdap)/Influenza Fhjqoyu01/2RSV ( or age 60+ yrs) (1 - 1-dose 75+ series)10/02/2031 [employer] [place] [id number] Care Teams Team MemberRelationshipSpecialtyStart DateEnd Date Vero Coates MD [address] [place] [address] PCP - GeneralFamily Iyntpahb29/22/22
[2025-02-11 09:12] LABS: Hematocrit 35.3 % (36.0-48.0); Hemoglobin 10.8 g/dL (12.0-16.0); Immature Granulocytes Abs Auto 0.01 10^3/uL (0.00-0.03); Immature Granulocytes Pct Auto 0.2 % (0.0-0.5); Lymphocytes Absolute Auto 0.9 10^3/uL (1.2-3.8); Mean Corpuscular HGB Conc 30.6 g/dL (29.9-35.2); Mean Corpuscular Hemoglobin 23.8 pg (26.7-34.0); Mean Corpuscular Volume 77.9 fL (81.0-99.0); Platelet Count 349 10^3/uL (150-450); Red Blood Count 4.53 10^6/uL (4.20-5.40); White Blood Count 6.4 10^3/uL (4.0-11.0)
[2025-02-11 09:49] LABS: Anion Gap 14.1; Blood Urea Nitrogen 10.0 mg/dL (7.0-18.0); Calcium 10.7 mg/dL (8.5-10.1); Carbon Dioxide 27.9 mmol/L (21.0-32.0); Chloride 101 mmol/L (98-107); Estimated GFR (African America >60 (>=60 mL/min/1.73m^2); Estimated GFR (Non-African Ame >60 (>=60 mL/min/1.73m^2); Glucose 121 mg/dL (74-106); Potassium 4.0 mmol/L (3.5-5.1); Sodium 139 mmol/L (136-145)
[2025-02-11 10:27] LABS: Glucose Urine UA NEGATIVE (NEGATIVE)
== END 2025-02-11 08:56 | disposition home or self-care (01) ==
LOC: LAB 08:57
PROVIDERS: PCP Family Medicine; Visit Provider Family Medicine
DX: E86.0 Dehydration (principal); I10 Essential (primary) hypertension; D50.8 Other iron deficiency anemias
CPT/HCPCS: 36415; 80048; 81003; 85025; 87086

== ENCOUNTER 2025-02-15 09:20 | Outpatient (RCR) | payer MEDICARE, OTHER, SELFPAY ==
[2025-02-15 09:30] VITALS: BP 141/88; PULSE 101; TEMP 37.3; O2SAT 98
[2025-02-15] MEDS: 0.9 % SODIUM CHLORIDE 1,000 ML 999 ML IV ×2 (09:37→10:40)
--- NOTE | 2025-02-15 10:06 | PC.NURSE ---
Tolerating ivf without c/o. Denies needs.
== END 2025-02-26 23:59 | disposition home or self-care (01) ==
LOC: INF 09:20
PROVIDERS: PCP Family Medicine; Visit Provider Family Medicine
DX: E86.0 Dehydration (principal); K22.0 Achalasia of cardia
CPT/HCPCS: 96360; 96361